=== PATIENT | female | born 1985 | race Caucasian/White ===

== ENCOUNTER → 2016-12-07 | Outpatient (CLI) | payer OTHER ==
[2016-12-07 19:35] LABS: BASO # 0.1 K/mm3 (0.0-0.2); BASO % 0.7 % (0.0-1.0); EOS % 0.1 % (0.0-3.0); LYMPH # 2.7 K/mm3 (1.5-4.5); LYMPH % 29.9 % (24.0-44.0); MEAN CORPUSCULAR HEMOGLOBIN 31.7 pg (27.0-33.0); MEAN CORPUSCULAR HGB CONC 33.3 g/dl (32.0-36.5); MEAN CORPUSCULAR VOLUME 95.1 fl (80.0-96.0); MONO # 0.7 K/mm3 (0.0-0.8); MONO % 7.3 % (0.0-5.0); NEUTROPHILS # 5.4 K/mm3 (1.8-7.7); NEUTROPHILS % 60.3 % (36.0-66.0); RED CELL DISTRIBUTION WIDTH 12.1 % (11.5-14.5); WHITE BLOOD COUNT 8.9 K/mm3 (4.0-10.0)
[2016-12-07 19:53] LABS: ALBUMIN 3.8 GM/DL (3.2-5.2); ALBUMIN/GLOBULIN RATIO 1.36 (1.00-1.93); ALKALINE PHOSPHATASE 76 U/L (45-117); ALT/SGPT 11 U/L (12-78); ANION GAP 6 MEQ/L (8-16); AST/SGOT 12 U/L (15-37); BILIRUBIN,TOTAL 0.2 MG/DL (0.2-1.0); BLOOD UREA NITROGEN 14 MG/DL (7-18); CALCIUM LEVEL 8.8 MG/DL (8.5-10.1); CARBON DIOXIDE LEVEL 30 MEQ/L (21-32); CHLORIDE LEVEL 106 MEQ/L (98-107); CHOLESTEROL LEVEL 132 MG/DL (<200); GLOMERULAR FILTRATION RATE > 60.0 (>60); GLUCOSE, FASTING 93 MG/DL (70-105); POTASSIUM SERUM 4.1 MEQ/L (3.5-5.1); SODIUM LEVEL 142 MEQ/L (136-145); TOTAL PROTEIN 6.6 GM/DL (6.4-8.2); TRIGLYCERIDES LEVEL 80 MG/DL (<150)
== END ==
LOC: M WUC 17:18
PROVIDERS: ATTEND Physician Assistant Medical
DX: I10 Essential (primary) hypertension (principal)

== ENCOUNTER 2017-06-29 16:17 | Emergency (ER) | payer OTHER ==
[~2017-06-29] VITALS: Ht 157.5 cm; Wt 61.4 kg
[2017-06-29] MEDS ORDERED: AMLO10TA2 PO (16:23)
[2017-06-29] MEDS ORDERED: CARV12.5 PO (16:23)
[2017-06-29] MEDS ORDERED: IBUP200T45 PO (16:23)
[2017-06-29] MEDS ORDERED: TYLE500T78 PO (16:23)
[2017-06-29 18:36] LABS: BASO # 0.1 10^3/uL (0.0-0.2); BASO % 0.5 % (0.0-1.0); EOS # 0.1 10^3/uL (0.0-0.50); EOS % 1.3 % (0.0-3.0); IMMATURE GRANULOCYTE % 0.3 % (0-0); LYMPH # 2.4 10^3/uL (1.5-4.5); MEAN CORPUSCULAR HEMOGLOBIN 30.8 pg (27.0-33.0); MEAN CORPUSCULAR HGB CONC 33.8 g/dl (32.0-36.5); MONO # 0.7 10^3/uL (0.0-0.8); MONO % 7.8 % (0.0-5.0); NEUTROPHILS % 64.1 % (36.0-66.0); PLATELET COUNT, AUTOMATED 329 10^3/uL (150-450); RED CELL DISTRIBUTION WIDTH 12.1 % (11.5-14.5); WHITE BLOOD COUNT 9.4 10^3/uL (4.0-10.0)
[2017-06-29 18:41] LABS: BLOOD URINE MANUAL RFX POSITIVE (NEGATIVE)
[2017-06-29 18:47] LABS: MICROSCOPIC INDICATED? RFX YES (NO)
[2017-06-29 18:49] LABS: BACTERIA, URINE MOD AMOUNT; HYALINE CAST, URINE NONE SEEN /lpf (0-1); MICROSCOPIC EXAM PERFORMED; RBC, URINE 15-20 /hpf (0-3); SQUAMOUS EPITHELIAL CELL URINE MOD AMOUNT /hpf (SMALL AMT)
--- NOTE | 2017-06-29 19:00 | REPUSA ---
Clinical history: Right upper quadrant pain. Findings: The pancreas is limited in visualization secondary to overlying bowel gas, but appears maral sly unremarkable. The liver demonstrates uniform echotexture and echogenicity, with no mass lesions. The gallbladder is unremarkable. The common bile duct measures 5 mm and is within normal limits. Ther e is no ascites. The right kidney measures 12.3 cm in length and is unremarkable. Impression: Unremarkable ultrasound examination of the right upper quadrant.
[2017-06-29 19:06] LABS: ALBUMIN 4.4 GM/DL (3.2-5.2); ALBUMIN/GLOBULIN RATIO 1.22 (1.00-1.93); ALKALINE PHOSPHATASE 73 U/L (45-117); ALT/SGPT 14 U/L (12-78); AMYLASE 62 U/L (25-115); ANION GAP 9 MEQ/L (8-16); AST/SGOT 14 U/L (7-37); BILIRUBIN,TOTAL 0.5 MG/DL (0.2-1.0); BLOOD UREA NITROGEN 12 MG/DL (7-18); CALCIUM LEVEL 9.2 MG/DL (8.5-10.1); CARBON DIOXIDE LEVEL 29 MEQ/L (21-32); CHLORIDE LEVEL 103 MEQ/L (98-107); CREATININE FOR GFR 0.65 MG/DL (0.55-1.02); GLOMERULAR FILTRATION RATE > 60.0 (>60); GLUCOSE, FASTING 100 MG/DL (70-105); POTASSIUM SERUM 3.8 MEQ/L (3.5-5.1); SODIUM LEVEL 141 MEQ/L (136-145)
[2017-06-29] MEDS ORDERED: OMEP40CA2 PO (19:25)
[2017-06-29] MEDS ORDERED: BACT800T5 PO (19:26)
[2017-06-29] MEDS ORDERED: OMEPRAZOLE 20 MG CAP PO ONE (19:30)
[2017-06-29] MEDS ORDERED: BACTRIM 160MG/800MG DS TAB PO ONE (19:30)
[2017-06-29 19:32] VITALS: BP 141/93
== END 2017-06-29 19:36 | disposition home or self-care (01) ==
LOC: M ED 16:17
DX: R10.13 Epigastric pain (principal); R60.9 Edema, unspecified; N39.0 Urinary tract infection, site not specified; I10 Essential (primary) hypertension; R00.0 Tachycardia, unspecified; G43.909 Migraine, unspecified, not intractable, without status migrainosus; N80.9 Endometriosis, unspecified; Z87.442 Personal history of urinary calculi; Z79.899 Other long term (current) drug therapy

== ENCOUNTER → 2017-07-12 | Outpatient (REF) | payer OTHER ==
[~2017-07-12] MED LIST: AMLO10TA2 PO; BACT800T5 PO; CARV12.5 PO; IBUP200T45 PO; OMEP40CA2 PO; TYLE500T78 PO
== END ==
LOC: M LAB REF 16:04
PROVIDERS: ATTEND Physician Assistant
DX: J02.9 Acute pharyngitis, unspecified (principal)

== ENCOUNTER → 2018-02-02 | Outpatient (CLI) | payer OTHER ==
[2018-02-02 16:43] LABS: BASO % 0.5 % (0.0-1.0); EOS # 0.1 10^3/uL (0.0-0.50); HEMATOCRIT 38.9 % (36.0-47.0); HEMOGLOBIN 13.2 g/dl (12.0-15.5); IMMATURE GRANULOCYTE % 0.2 % (0-3.0); LYMPH # 1.9 10^3/uL (1.5-4.5); MEAN CORPUSCULAR HEMOGLOBIN 30.8 pg (27.0-33.0); MEAN CORPUSCULAR HGB CONC 33.9 g/dl (32.0-36.5); MEAN CORPUSCULAR VOLUME 90.7 fl (80.0-96.0); MONO # 0.7 10^3/uL (0.0-0.8); MONO % 7.9 % (0.0-5.0); NEUTROPHILS % 68.4 % (36.0-66.0); PLATELET COUNT, AUTOMATED 310 10^3/uL (150-450); RED BLOOD COUNT 4.29 10^6/uL (4.00-5.40); RED CELL DISTRIBUTION WIDTH 12.4 % (11.5-14.5); WHITE BLOOD COUNT 8.8 10^3/uL (4.0-10.0)
[2018-02-02 17:00] LABS: TOTAL 25(OH) VITAMIN D 19.4 NG/ML (30.0-100.0)
[2018-02-02 17:07] LABS: ALBUMIN/GLOBULIN RATIO 1.14 (1.00-1.93); ALKALINE PHOSPHATASE 68 U/L (45-117); ALT/SGPT 13 U/L (12-78); ANION GAP 5 MEQ/L (8-16); AST/SGOT 11 U/L (7-37); BILIRUBIN,TOTAL 0.8 MG/DL (0.2-1.0); BLOOD UREA NITROGEN 15 MG/DL (7-18); C REACTIVE PROTEIN QUANTITATIV < 0.30 MG/DL (0.00-0.30); CALCIUM LEVEL 9.3 MG/DL (8.5-10.1); CARBON DIOXIDE LEVEL 30 MEQ/L (21-32); CHLORIDE LEVEL 108 MEQ/L (98-107); CHOLESTEROL LEVEL 139 MG/DL (<200); CHOLESTEROL RISK RATIO 1.654 (<5); CREATININE FOR GFR 0.65 MG/DL (0.55-1.30); GLOMERULAR FILTRATION RATE > 60.0 (>60); GLUCOSE, FASTING 90 MG/DL (70-100); HDL CHOLESTEROL 84 MG/DL (>40); NON-HDL-C 55 MG/DL; POTASSIUM SERUM 3.8 MEQ/L (3.5-5.1); RHEUMATOID FACTOR QUANT < 10.0 IU/ML (<15.0); SODIUM LEVEL 143 MEQ/L (136-145); TOTAL PROTEIN 7.5 GM/DL (6.4-8.2); TRIGLYCERIDES LEVEL 70 MG/DL (<150); URIC ACID 3.1 MG/DL (2.6-6.0)
[2018-02-02 18:12] LABS: ERYTHROCYTE SEDIMENTATION RATE 8 mm/hr (0-20)
[2018-02-05 00:14] LABS: ANTINUCLEAR ANTIBODIES DIRECT Negative (Negative); Lyme Disease IgG/IgM Antibodie <0.91 ISR (0.00-0.90); Lyme Disease IgM Ab Quantitati <0.80 index (0.00-0.79)
[2018-02-08 11:05] LABS: DRVV SCREEN 33.2 SEC
[2018-02-08 11:13] LABS: PTT LUPUS TYPE ANTICOAG SCREEN 0.8 (0-1.2)
== END ==
LOC: M WUC 14:38
DX: I10 Essential (primary) hypertension (principal)
CPT/HCPCS: 84550

== ENCOUNTER → 2018-04-01 | Outpatient (REF) | payer OTHER ==
[2018-04-05 14:12] LABS: HPV HYBRID CAPTURE II Negative (Negative)
== END ==
LOC: M LAB REF 17:38
DX: Z12.4 Encounter for screening for malignant neoplasm of cervix (principal)

== ENCOUNTER → 2018-12-06 | Outpatient (CLI) | payer OTHER ==
[~2018-12-06] MED LIST changes: -AMLO10TA2 PO; +AMLO10TA5 PO; +OXYC1TAB23 PO
[2018-12-06 16:41] LABS: BASO # 0.1 10^3/uL (0.0-0.2); BASO % 0.5 % (0.0-1.0); EOS # 0.1 10^3/uL (0.0-0.50); EOS % 0.9 % (0.0-3.0); HEMOGLOBIN 12.9 g/dl (12.0-15.5); LYMPH # 2.2 10^3/uL (1.5-4.5); LYMPH % 19.4 % (24.0-44.0); MEAN CORPUSCULAR HEMOGLOBIN 30.4 pg (27.0-33.0); MEAN CORPUSCULAR HGB CONC 32.3 g/dl (32.0-36.5); MEAN CORPUSCULAR VOLUME 94.1 fl (80.0-96.0); MONO # 0.7 10^3/uL (0.0-0.8); NEUTROPHILS # 8.3 10^3/uL (1.8-7.7); NEUTROPHILS % 72.9 % (36.0-66.0); PLATELET COUNT, AUTOMATED 320 10^3/uL (150-450); RED BLOOD COUNT 4.25 10^6/uL (4.00-5.40); WHITE BLOOD COUNT 11.4 10^3/uL (4.0-10.0)
== END ==
LOC: M WUC 14:03
PROVIDERS: ATTEND Physician Assistant
DX: N92.0 Excessive and frequent menstruation with regular cycle (principal)

== ENCOUNTER → 2019-03-08 | Outpatient (CLI) | payer OTHER ==
[~2019-03-08] MED LIST changes: +LARI1TAB7 PO; +LOSA25TA14 PO; +MOBI4TAB PO; +RIZA10TA4 PO; +TRAM37.53 PO; +TRAM50TA2 PO
--- NOTE | 2019-03-08 10:59 | REP ---
Hepatobiliary scan and gallbladder ejection fraction: History: Right upper quadrant pain Technique: 6.5 mCi of technetium-99m mebrofenin was injected and sequential anterior images are acquired. 65 minutes after the mebrofenin injection, the patient consumed 8 ounces Ensure and an additional 60 minutes of imaging was acquired. Regions of interest are plotted around the gallbladder. Findings: The initial hepatocellular parenchymal uptake phase is normal and homogeneous. Intra- and extra-hepatic bile ducts are labeled by the five minute image. The gallbladder is first labeled on the 10 -minute image. There is normal washout from the liver parenchyma into the gallbladder and small intestine on subsequent images. The gallbladder ejection fraction is 32 %. Values greater than 35 % are considered normal with this technique. Impression: Normal hepatobiliary scan and slightly decreased gallbladder ejection fraction. Electronically Signed by Rahat Barrow MD 03/08/2019 10:51 A
== END ==
LOC: M RAD 07:11
PROVIDERS: ATTEND Surgery
DX: R10.11 Right upper quadrant pain (principal)
CPT/HCPCS: 78227; A9537; J2805

== ENCOUNTER 2019-03-13 06:07 | Day surgery (SDC) | payer OTHER ==
[~2019-03-13] VITALS: Ht 157.5 cm; Wt 72.6 kg
[2019-03-13] VITALS (10 sets, daily range): BP systolic 156–178; BP diastolic 90–98
[~2019-03-13 06:07] MED LIST changes: +LR 1,000 ML IV ONE; -OMEP40CA2 PO; +OMEP40CA97 PO; -RIZA10TA4 PO; +RIZA10TA58 PO; +ceFAZolin SOD 2 GM in IV 1 EA IV ONE
[2019-03-13 06:38] LABS: URINE PREG TEST NEGATIVE (NEGATIVE)
[2019-03-13 06:40] LABS: HEMATOCRIT 38.5 % (36.0-47.0); HEMOGLOBIN 12.6 g/dl (12.0-15.5); MEAN CORPUSCULAR HEMOGLOBIN 30.1 pg (27.0-33.0); MEAN CORPUSCULAR HGB CONC 32.7 g/dl (32.0-36.5); MEAN CORPUSCULAR VOLUME 91.9 fl (80.0-96.0); PLATELET COUNT, AUTOMATED 334 10^3/uL (150-450); RED BLOOD COUNT 4.19 10^6/uL (4.00-5.40)
[2019-03-13] MEDS ORDERED: BUPIVACAINE/EPIN 0.25% 30 ML VIAL As Ordered ONE (06:56)
[2019-03-13] MEDS ORDERED: BUPIVACAINE HCL 0.25% 30 ML VIAL As Ordered ONE (06:56)
[2019-03-13] MEDS ORDERED: METHYLENE BLUE 0.5% (5MG/ML) 10 ML AMP (PROVAYBLUE)(Q9968 PER 1MG) As Ordered ONE (06:56)
[2019-03-13] MEDS ORDERED: ONDANSETRON 4MG/2ML VIAL (J2405) As Ordered ONE (08:04)
[2019-03-13] MEDS ORDERED: HYDROmorphone HCL 2 MG/ML 1ML VIAL (J1170) As Ordered ONE (08:04)
[2019-03-13] MEDS ORDERED: LIDOCAINE 2% INJ 100 MG/5 ML SDV (FOR ANES.) As Ordered ONE (08:04)
[2019-03-13] MEDS ORDERED: KETOROLAC 60 MG/2 ML VIAL (J1885) As Ordered ONE (08:04)
[2019-03-13] MEDS ORDERED: SUGAMMADEX SODIUM 500 MG/5 ML VIAL (BRIDION) As Ordered ONE (08:04)
[2019-03-13] MEDS ORDERED: propofoL 200 MG/20 ML VIAL As Ordered ONE ×2 (08:04→10:04)
[2019-03-13] MEDS ORDERED: MIDAZOLAM INJ 2 MG/2 ML VIAL (J2250) As Ordered ONE (08:04)
[2019-03-13] MEDS ORDERED: ACETAMINOPHEN 1000MG 100ML IV BTL (OFIRMEV) (J0131 PER 10MG) As Ordered ONE (08:04)
[2019-03-13] MEDS ORDERED: ROCURONIUM BROMIDE 50 MG/5 ML VIAL As Ordered ONE (08:04)
[2019-03-13] MEDS ORDERED: dexameTHASONE 4 MG/ML 1ML VIAL (J1100) As Ordered ONE (08:04)
[2019-03-13] MEDS ORDERED: fentaNYL 100 MCG/2 ML INJECTION (J3010) As Ordered ONE (08:04)
[2019-03-13] MEDS ORDERED: PHENYLephrine HCL 500 MCG/5 ML (100MCG/ML) SYRINGE (J2370) As Ordered ONE (08:28)
[2019-03-13] MEDS ORDERED: ePHEDrine SULFATE 25 MG/5 ML(5MG/ML) SYRINGE As Ordered ONE (08:28)
[2019-03-13] MEDS: fentaNYL 100 MCG/2 ML INJECTION (J3010) IV PRN ×8 (10:24→11:40)
[2019-03-13] MEDS ORDERED: METOCLOPRAMIDE INJ 10MG/2ML VIAL (J2765) IV PRN (10:30)
[2019-03-13] MEDS ORDERED: LR 1,000 ML IV SCH ×2 (10:30)
[2019-03-13] MEDS ORDERED: PROMETHAZINE INJ 25 MG/ML VIAL (J2550) IV PRN (10:30)
[2019-03-13] MEDS ORDERED: ONDANSETRON 4MG/2ML VIAL (J2405) IV PRN (10:30)
[2019-03-13] MEDS ORDERED: PERCOCET 5MG/325MG TAB PO PRN ×2 (10:30)
[2019-03-13] MEDS: MEPERIDINE INJ 25 MG/ML VIAL (J2175) IV PRN ×2 (10:45→11:10)
[2019-03-13] MEDS ORDERED: oxyCODONE 5MG TAB As Ordered ONE (11:18)
[2019-03-13] MEDS ORDERED: oxyCODONE 5MG TAB PO PRN (11:30)
[2019-03-13] MEDS ORDERED: OXYC1TAB23 PO (13:02)
[2019-03-13] MEDS: MORPHINE 4 MG/ML 1ML VIAL/SYRINGE (J2270) IV PRN ×2 (13:28→18:41)
[2019-03-13] MEDS: PERCOCET 5MG/325MG TAB PO PRN ×2 (15:01→19:42)
[2019-03-13] MEDS: KETOROLAC 30 MG/ML VIAL (J1885) IV SCH ×2 (15:47→21:23)
--- NOTE | 2019-03-13 18:35 | ECGEPIP ---
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
[2019-03-14] VITALS: BP 156/80
[2019-03-14] MEDS: PERCOCET 5MG/325MG TAB PO PRN ×2 (00:31→07:05)
[2019-03-14] MEDS: KETOROLAC 30 MG/ML VIAL (J1885) IV SCH ×2 (03:39→09:02)
[2019-03-14 04:00] VITALS: BP 154/92
[2019-03-14 06:16] LABS: HEMATOCRIT 36.2 % (36.0-47.0); HEMOGLOBIN 11.9 g/dl (12.0-15.5); MEAN CORPUSCULAR HEMOGLOBIN 30.5 pg (27.0-33.0); MEAN CORPUSCULAR HGB CONC 32.9 g/dl (32.0-36.5); MEAN CORPUSCULAR VOLUME 92.8 fl (80.0-96.0); PLATELET COUNT, AUTOMATED 311 10^3/uL (150-450); WHITE BLOOD COUNT 16.2 10^3/uL (4.0-10.0)
[2019-03-14 08:00] VITALS: BP 160/85
--- NOTE | 2019-03-14 14:36 | RO ---
DATE OF PROCEDURE: 03/13/2019 PREOPERATIVE DIAGNOSES: 1. Endometriosis. 2. Chronic pelvic pain. 3. Biliary dyskinesia. POSTOPERATIVE DIAGNOSES: 1. Endometriosis. 2. Chronic pelvic pain. 3. Biliary dyskinesia. PROCEDURES PERFORMED: 1. Robotic-assisted laparoscopic hysterectomy. 2. Bilateral salpingectomy. 3. Cystoscopy. 4. Robotic-assisted laparoscopic cholecystectomy. SURGEON: Jeanine Purcell MD ANESTHESIA: General endotracheal anesthesia. ESTIMATED BLOOD LOSS: 50 mL. INTRAVENOUS FLUIDS: 2100 mL of lactated Ringer's solution. URINE OUTPUT: 150 mL. SPECIMENS: Uterus, bilateral fallopian tubes, gallbladder. OPERATIVE FINDINGS: Patient with normal-appearing pelvic anatomy, including uterus, bilateral adnexa. PREOPERATIVE ANTIBIOTICS: 2 grams of Ancef. DESCRIPTION OF OPERATION: After informed consent was obtained and written consent was reviewed, the patient was brought to the operating room where she was placed under general endotracheal anesthesia. She was then placed in lithotomy position, was prepped and draped in a normal sterile fashion. A time out in the operating room was then performed identifying the patient, procedure to be performed, as well as drug allergies. A bivalve speculum was then placed revealing the cervix. The anterior and posterior aspect of cervix was stitched with 0 Vicryl. A medium VCare uterine manipulator was then advanced through cervical os, insufflated with air, the cervical cap was then placed over the cervix, as well as a vaginal sleeve into the vagina. Instruments were then removed. Cole catheter was placed and set to gravity. Gloves were changed. Attention was turned to the patient's abdomen where a pneumoperitoneum was obtained with CO2 gas. The supraumbilical area was then incised and an 8 mL trocar and sleeves advanced through this incision. Laparoscope was replaced revealing intra-abdominal placement. Three additional port sites were placed, one to the left side of umbilicus and one to the right. Each one of these areas were 8 mm in size and 8 mm trocars and sleeves were advanced through each one of these incisions under direct visualization. The da Sophie was then docked utilizing camera arm and three operative arms. For this part of the procedure, Dr. Fuentes performed robotic-assisted cholecystectomy, please see his operative notes. On completion of his operation, he placed the gallbladder in a 5 mm Endo catch bag. The da Sophie was then undocked and then redocked utilizing three operative arms. Attention was then turned to the pelvis where hysterectomy was performed using a vessel sealer. The mesosalpinx bilaterally were cauterized and ligated below fallopian tubes to the level of the uterus. The utero-ovarian ligaments bilaterally were cauterized and ligated with good hemostasis noted. The round ligaments were cauterized and ligated. The anterior lip of the broad ligaments were then cauterized and ligated along the anterior lip, creating a bladder flap. The remainder of the broad and cardinal ligaments were then cauterized and ligated with good hemostasis noted. The uterine vessels were then skeletonized bilaterally, cauterized and ligated with hemostasis noted. Next, anterior and posterior colpotomies were made using monopolar scissors and the uterus was removed vaginally. The gallbladder and the EndoCatch bag was also removed through the vaginal incision. Surgical sites were inspected and noted to be hemostatic. The vaginal incision was then closed using a V-Loc in a running nonlocking fashion. The surgical sites were then irrigated and suctioned. Marcelino was applied over the surgical field. The da Sophie was then undocked and cystoscopy was then performed. Cole catheter was removed in cystoscope was advanced transurethrally revealing normal bladder mucosa with no foreign bodies or objects. Bilateral ureteral jets were observed. Bladder was then drained. Gloves were changed and attention was turned to the patient's abdomen where four port sites were closed with 4-0 Monocryl and was dressed with Dermabond. The patient was then taken out of lithotomy position, was awakened from anesthesia and taken to recovery in stable condition. Counts were correct. MTDD
--- NOTE | 2019-03-16 12:07 | RO ---
DATE OF PROCEDURE: 03/13/2019 PREOPERATIVE DIAGNOSIS: Biliary Dyskinesia POSTOPERATIVE DIAGNOSIS: Same PROCEDURE: Robotic cholecystectomy. SURGEON: Dr. Polo Fuentes ASSIST: None. ANESTHESIA: General. ESTIMATED BLOOD LOSS: 2 mL. COMPLICATIONS: None. INDICATION FOR PROCEDURE: The patient is a 34-year-old female who presents with persistent right upper quadrant abdominal pain, had a normal ultrasound with a slightly abnormal HIDA with a lower ejection fraction. She is scheduled for hysterectomy today with Dr. Purcell, and I have consented her for a robotic cholecystectomy at the same time. Risks and benefits of procedure not limited to, but including bleeding, infection, hernia formation, damage to surrounding structures, need for further surgery, and the possibility that this may not fix her symptoms were discussed in detail with her. Informed consent was obtained and procedure was planned. PROCEDURE: Patient brought back to operating room 7 after sufficient sedation. She was placed up in stirrups for the hysterectomy portion of procedure. Next, the abdomen was sterilely prepped and draped with chlorhexidine. Next, time-out was done to confirm proper patient, proper procedure. Following that, while Dr. Purcell was doing the uterine manipulator, I started placing ports in the left upper quadrant. An 8-mm incision was made. Veress needle was inserted. The abdomen was then insufflated 15 mmHg. Veress needle was then removed and 8-mm robotic Optiview port was used to gain access to the abdomen. Once the abdomen was entered, another 8-mm port was placed supraumbilically in the midline, another 8-mm port in the right midabdomen, and then another 8-mm port in the left midabdomen. Once the ports were all placed, the head was elevated up in the air. The robot was then connected to the ports. The fundus of the gallbladder was elevated up into the right upper quadrant and held in place stationary. Next, the cystic duct and the cystic artery were carefully dissected free using combination of blunt and sharp dissection. Once they were clearly identified, they were both doubly clipped and cut. The gallbladder was then removed from the gallbladder fossa using cautery and placed inside of 5 mm Endo Catch bag. Once that was completed, the Endo Catch bag was placed into right pericolic gutter, and that ended my portion of procedure. Once Dr. Purcell finishes with the hysterectomy, he can remove my specimen along with his. JOÃOD
[2019-03-20] MEDS ORDERED: OXYC1TAB23 PO (09:42)
[2019-03-29] MEDS ORDERED: PERC5TAB12 PO (15:36)
[2019-04-07] MEDS ORDERED: PERC7.5T11 PO (06:11)
== END 2019-03-14 12:20 | disposition home or self-care (01) ==
LOC: M SDC 06:07 → M PED 12:20 → M SDC 03-14 12:20
PROVIDERS: ATTEND Obstetrics & Gynecology
DX: N80.0 Endometriosis of uterus (principal); R10.2 Pelvic and perineal pain; D25.0 Submucous leiomyoma of uterus; D25.1 Intramural leiomyoma of uterus; K82.8 Other specified diseases of gallbladder; I10 Essential (primary) hypertension; Z79.899 Other long term (current) drug therapy
CPT/HCPCS: 36415; 47562; 58571; 84703; 85027; 86850; 86900; 86901; 88304; 88307; 93005; 96374; 96375; 96376; J0131; J0690; J1100; J1170; J1885; J2175; J2250; J2270; J2370; J2405; J3010

== ENCOUNTER → 2019-03-30 | Outpatient (CLI) | payer OTHER ==
[~2019-03-30] MED LIST changes: -LR 1,000 ML IV ONE; +OMEP40CA2 PO; -OMEP40CA97 PO; +PERC5TAB12 PO; +PERC7.5T11 PO; +RIZA10TA4 PO; -RIZA10TA58 PO; -ceFAZolin SOD 2 GM in IV 1 EA IV ONE
[2019-03-30 13:50] LABS: HEMATOCRIT 34.3 % (36.0-47.0); HEMOGLOBIN 11.1 g/dl (12.0-15.5); MEAN CORPUSCULAR HEMOGLOBIN 29.7 pg (27.0-33.0); MEAN CORPUSCULAR HGB CONC 32.4 g/dl (32.0-36.5); MEAN CORPUSCULAR VOLUME 91.7 fl (80.0-96.0); PLATELET COUNT, AUTOMATED 482 10^3/uL (150-450); RED BLOOD COUNT 3.74 10^6/uL (4.00-5.40); WHITE BLOOD COUNT 8.2 10^3/uL (4.0-10.0)
== END ==
LOC: M WUC 11:43
PROVIDERS: ATTEND Obstetrics & Gynecology
DX: Z48.815 Encounter for surgical aftercare following surgery on the digestive system (principal)

== ENCOUNTER → 2019-04-18 | Outpatient (CLI) | payer OTHER ==
[2019-04-18 16:58] LABS: BASO # 0.1 10^3/uL (0.0-0.2); BASO % 0.9 % (0.0-1.0); EOS # 0.2 10^3/uL (0.0-0.5); EOS % 2.6 % (0.0-3.0); HEMATOCRIT 35.6 % (36.0-47.0); HEMOGLOBIN 11.1 g/dl (12.0-15.5); LYMPH # 2.3 10^3/uL (1.5-5.0); LYMPH % 34.4 % (24.0-44.0); MEAN CORPUSCULAR HEMOGLOBIN 29.1 pg (27.0-33.0); MEAN CORPUSCULAR HGB CONC 31.2 g/dl (32.0-36.5); MEAN CORPUSCULAR VOLUME 93.2 fl (80.0-96.0); MONO # 0.5 10^3/uL (0.0-0.8); MONO % 7.5 % (0.0-5.0); NEUTROPHILS # 3.6 10^3/uL (1.5-8.5); NEUTROPHILS % 54.3 % (36.0-66.0); PLATELET COUNT, AUTOMATED 350 10^3/uL (150-450); RED BLOOD COUNT 3.82 10^6/uL (4.00-5.40); WHITE BLOOD COUNT 6.7 10^3/uL (4.0-10.0)
[2019-04-18 17:12] LABS: HEMOGLOBIN A1c 4.6 %
[2019-04-18 17:37] LABS: MAGNESIUM LEVEL 1.8 MG/DL (1.8-2.4); THYROID STIMULATING HORMONE 1.38 uIU/ML (0.358-3.740)
== END ==
LOC: M WUC 11:37
PROVIDERS: ATTEND Family Medicine
DX: Z00.00 Encounter for general adult medical examination without abnormal findings (principal); I10 Essential (primary) hypertension

== ENCOUNTER → 2019-07-06 | Outpatient (CLI) | payer OTHER ==
[~2019-07-06] MED LIST changes: -OMEP40CA2 PO; +OMEP40CA97 PO; -RIZA10TA4 PO; +RIZA10TA58 PO
--- NOTE | 2019-07-12 04:23 | ECWPNPC ---
PATIENT NAME: MIL MARTÍNEZ : 1985 GENDER: FEMALE VISIT DATE: 07/06/2019 DISCHARGE DATE: 07/06/19 1601 VISIT LOCKED DATE TIME: PHYSICIAN: AIDE NIETO MD RESOURCE: AIDE NIETO MD REASON FOR APPOINTMENT 1. SHOULDER/NECK/MIGRAINE HISTORY OF PRESENT ILLNESS PAIN SCREENING: PATIENT HAS A COMPLAINT OF ACUTE OR CHRONIC PAIN :YES 34 YEAR OLD FEMALE PATIENT WITH A HISTORY OF CHRONIC MIGRAINES, NECK, AND SHOULDER PAIN. THE PATIENT DESCRIBES THE PAIN ACHING, BURNING, SORE, TENDERS, AND CONTINUOUS WITH A PAIN SCORE OF 4-7/10 DEPENDING ON PHYSICAL ACTIVITY. THE PATIENT STATES HER PAIN BEGINS IN MAINLY THE LEFT SIDE OF HER NECK AND RADIATES DOWN HER LEFT SHOULDER AND ALSO UP TOWARDS HER HEAD THAT CAUSES MIGRAINES FOR HER. THE PATIENT SAYS SHE HAS BEEN SUFFERING FROM HER PAIN FOR MORE THAN 10 YEARS. THE PATIENT SAYS HER PAIN IS AFFECTING HER ABILITY TO PERFORM HER DAILY ACTIVITIES SUCH LIFTING HEAVY OBJECTS, GROCERY SHOPPING, AND CLEANING HER HOUSE. PATIENT DENIES UNEXPLAINABLE WEIGHT LOSS, FEVER, CHILLS, NEW CHANGES ON HER URINARY OR BOWEL CONTROL. FALL RISK SCREENING: SCREENING :NO FALLS REPORTED IN THE LAST YEAR CURRENT MEDICATIONS TAKING ACETAMINOPHEN 500 MG CAPSULE 2 CAPSULES NEEDED ORALLY EVERY 6 HRS TAKING MAXALT 10 MG TABLET 1 TABLET ORALLY AT THE ONSET OF HEADACHE. MAY REPEAT IN 2 HOURS IF NEEDED. MAXIMUM 30 MG IN A 24 HOUR PERIOD. (6 HAS PER MONTH) TAKING CARVEDILOL 12.5 MG TABLET 1 TABLET ORALLY TWICE A DAY TAKING LISINOPRIL 30 MG TABLET 1 TABLET ORALLY ONCE A DAY TAKING VITAMIN D2 10 MCG (400 UNIT) TABLET 1.25MG ORALLY WEEKLY TAKING DICLOFENAC POTASSIUM 50 MG TABLET 1 TABLET ORALLY THREE TIMES DAILY NEEDED TAKING OMEPRAZOLE 40 MG CAPSULE DELAYED RELEASE 1 CAPSULE 30 MINUTES BEFORE MORNING MEAL ORALLY ONCE A DAY TAKING ARNICA 20 % TINCTURE DIRECTED EXTERNALLY NOT-TAKING MOBIC 7.5 MG TABLET 1 TABLET ORALLY ONCE A DAY NOT-TAKING FLEXERIL 10 MG 30 10 MG TABLETS ONE TABLET ORALLY EVERY 8 HOURS PRN PAIN NOT-TAKING MULTIVITAMINS CAPSULE ORALLY NOT-TAKING IBUPROFEN 200 MG TABLET 1 TABLET NEEDED ORALLY EVERY 6 HRS NOT-TAKING MAGNESIUM OXIDE 400 MG TABLET 1 TAB ORALLY DAILY MEDICATION LIST REVIEWED AND RECONCILED WITH THE PATIENT PAST MEDICAL HISTORY MIGRAINE HAS ENDOMETRIOSIS SLEEP APNEA CHILD, RESOLVED AFTER T&A MURMUR H/O KIDNEY STONES POLYCYSTIC OVARIES FX LEFT WRIST PALPITATIONS ALLERGIC RHINITIS ALLERGIES PERTUSSIS: HOSPITALIZED - ALLERGY CEFDINIR: HIVES - ALLERGY SURGICAL HISTORY T&A 1994 LAPAROSCOPY (ENDOMETRIOSIS) 2006 HYSTERECTOMY 03/13/19 CHOLECYSTECTOMY 03/13/19 FAMILY HISTORY FATHER: ALIVE, DIAGNOSED WITH HYPERTENSION MOTHER: ALIVE, HAS, HYPERTENSION SIBLINGS: ALIVE, NO KNOWN MEDICAL PROBLEMS 1 BROTHER(S) - HEALTHY. 2DAUGHTER(S) - HEALTHY. SOCIAL HISTORY GENERAL: TOBACCO USE ARE YOU A:NONSMOKER DIET: HEALTHY. LANGUAGE KHMER. DOMESTIC VIOLENCE NONE. BMI CARE GOAL FOLLOW-UP BELOW NORMAL BMI FOLLOW-UPDIETARY EDUCATION FOR WEIGHT GAIN RECREATIONAL DRUG USE DENIES. EXERCISE: PILATES; LOW-IMPACT AEROBICS. LEARNING BARRIERS / SPECIAL NEEDS BARRIERS TO LEARNING?NO HEARING IMPAIRED?NO VISION IMPAIRED?YES COGNITIVELY IMPAIRED?NO :CORRECTIVE LENSES GLASSES READINESS TO LEARN?YES LEARNING PREFERENCES?NO LEARNING CAPABILITIES PRESENT?YES EMOTIONAL BARRIERS?NO LUNG CANCER SCREENING SMOKING STATUS:NON SMOKER PAIN CLINIC PFS, CLERGY, PUBLIC HEALTH REFERRALS HAS THE PATIENT BEEN EDUCATED REGARDING HIS/HER PLAN OF CARE?YES HAS THE PATIENT BEEN EDUCATED REGARDING PAIN, THE RISK FOR PAIN, THE IMPORTANCE OF EFFECTIVE PAIN MANAGEMENT, AND THE PAIN ASSESSMENT PROCESS?YES LATEX QUESTIONNAIRE LATEX ALLERGY : HAVE YOU EVER DEVELOPED ANY TYPE OF REACTION AFTER HANDLING LATEX PRODUCTS SUCH RUBBER GLOVES, CONDOMS, DIAPHRAGMS, BALLOONS, SOCKS, OR UNDERWEAR?NO LATEX ALLERGY : HAVE YOU EVER DEVELOPED ANY TYPE OF REACTION DURING OR AFTER DENTAL APPOINTMENT, VAGINAL/RECTAL EXAMINATION, SURGICAL PROCEDURE, OR ANY OTHER EXPOSURE?NO LATEX RISK : HAVE YOU EVER HAD ANY DIFFICULTY BREATHING OR HIVES AFTER EATING OR HANDLING ANY FRUITS, OR VEGETABLES; SUCH KIWI, BANANAS, STONE FRUITS, OR CHESTNUTSNO LATEX RISK : DO YOU HAVE A PREVIOUS PERSONAL HISTORY OF MORE THAN NINE SURGERIES, SPINA BIFIDA, OR REPEATED CATHERIZATIONS? NO LATEX RISK : ARE YOU FREQUENTLY EXPOSED TO LATEX PRODUCTS IN YOUR OCCUPATION?NO DATE ASKED : 07/05/2019 CAFFEINE RARE. ADVANCE DIRECTIVE ADVANCE DIRECTIVE DISCUSSED WITH PATIENT:YES PT STATES THAT SHE DOES NOT HAVE HCP AT THIS TIME MAY CONSIDER FILLING ONE OUT IN FUTURE. DS ANABAPTISM NO SABIANISM BELIEFS THAT WOULD IMPACT HEALTH CARE. MARITAL STATUS: . OCCUPATION: HOMEMAKER. REVIEWED NEW PT PAPERWORK 07/05/19 S. HOSPITALIZATION/MAJOR DIAGNOSTIC PROCEDURE SURGERY RELATED REVIEW OF SYSTEMS REVIEWED BY: PROVIDER: AIDE NIETO MD . CONSTITUTIONAL: ANY CHANGE IN YOUR MEDICAL CONDITION? NO . CHILLS NO . FEVER NO . INFECTION: DO YOU HAVE NEW INFECTIONS? NO . DO YOU HAVE HISTORY OF MRSA? NO . MUSCULOSKELETAL: ANY NEW PATTERNS OF PAIN OR NUMBNESS? YES, MIGRAINES ARE WORSE . SYTEMIC LUPUS NO . GASTROENTEROLOGY: ANY NEW CHANGE IN BOWEL CONTROL? NO . BARRETTS ESOPHAGUS NO . CIRRHOSIS NO . HEPATITIS NO . LIVER FAILURE NO . ACID REFLUX NO . UNEXPLAINED WEIGHT LOSS NO . GENITOURINARY: ANY NEW CHANGE IN BLADDER CONTROL? NO . IS THERE A CHANCE YOU COULD BE ? NO . HEMATOLOGY/LYMPH: DO YOU TAKE ANY BLOOD THINNERS? (FOR EXAMPLE- COUMADIN, PLAVIX, AGGRENOX, PLATEL, PRADAXA, OR XARELTO) NO . WHEN WAS YOUR LAST DOSE? DATE: TIME: . LOW PLATELET COUNT NO . SICKLE CELL DISEASE NO . VON WILLIEBRANDS NO . FACTOR V LEIDEN NO . THALLASEMIA NO . ANEMIA NO . EASY BRUISING NO . NEUROLOGY: HAVE YOU FALLEN IN THE PAST 12 MONTHS? NO . ANY NEW EXTREMITY NUMBNESS OR WEAKNESS? NO . HEAD INJURY NO . DEMENTIA NO . CEREBRAL PALSY NO . MULTIPLE SCLEROSIS NO . DIZZINESS NO . HEADACHE NO . STROKES NO . VERTIGO NO . CARDIOLOGY: DO YOU HAVE A PACEMAKER OR DEFIBRILLATOR? NO . ANGINA NO . HEART ATTACK NO . HEART SURGERY NO . CONGESTIVE HEART FAILURE/FLUID OVERLOAD NO . CHEST PAIN NO . HIGH BLOOD PRESSURE ON MEDICATION(S) . IRREGULAR HEART BEAT NO . RESPIRATORY: HAVE YOU BEEN SICK IN THE PAST WEEK? NO . FEVER NO . FLU LIKE SYMPTOMS? NO . CPAP NO . BYPAP NO . ASTHMA NO . EMPHYSEMA NO . CHRONIC LUNG DISEASES NO . SHORTNESS OF BREATH ON EXERTION NO . COUGH NO . SNORING NO . INTEGUMENTARY: DO YOU HAVE ANY RASHES OR OPEN SORES? NO . ALLERGIC/IMMUNO: ARE YOU ALLERGIC TO IV DYE? NO . ANY NEW ALLERGIES? NO . PSYCHIATRIC: DO YOU HAVE THOUGHTS OF HURTING YOURSELF OR SOMEONE ELSE? NO . ARE YOU ABUSED, NEGLECTED, OR IN AN UNSAFE ENVIRONMENT? NO . ENDOCRINOLOGY: ARE YOU DIABETIC? NO . THYROID DISORDER NO . OTHER: DO YOU NEED ANY PRESCRIPTIONS? NO . IF YES, PLEASE LIST: ____ . ANY NEW PROBLEMS WITH YOUR MEDICATIONS? YES, SVETA VISION PROBLEMS AND EMOTIONAL . WHEN DID YOU LAST EAT? ____ . WHEN DID YOU LAST DRINK? ____ . WHAT DID YOU LAST DRINK? ____ . NAME OF PERSON DRIVING YOU HOME? ____ . DO YOU HAVE ANY OTHER QUESTIONS OR CONCERNS NO . VITAL SIGNS WT 162.2 LBS, HT 62 IN, BMI 29.66 INDEX, BP 156/87 MM HG, HR 84 /MIN, RR 18 /MIN, TEMP 98.4 F, OXYGEN SAT % 100%, NA INITIALS SC 14:22, REVIEWED BY: EM. EXAMINATION GENERAL EXAMINATION: PATIENT IS ALERT O X 3 AND COOPERATIVE. LUNGS CLEAR, TO AUSCULTATION. HEART: NO MURMURS OR GALLOPS; FACIAL CRANIAL NERVES ARE GROSSLY NORMAL. GOOD SYMMETRY OF FACIAL MUSCLE MOVEMENT. NORMAL VISUAL HERNANDEZ. PATIENT WALKS WITH NORMAL GAIT. ABDUCTION OF UPPER EXTREMITIES IS NORMAL. PRESENCE OF BANDS OF TISSUE AND TRIGGER POINTS WITH RESTRICTION OF MOVEMENT OF THE SUPRASPINATUS OF LEFT SHOULDER. PAIN INCREASES OVER THE CERVICAL FACET JOINTS WITH EXTENSION AND LATERAL ROTATION OF THE NECK, ESPECIALLY ON THE LEFT SIDE. ASSESSMENTS MYALGIA, OTHER SITE - M79.18 (PRIMARY) CERVICALGIA - M54.2 TREATMENT MYALGIA, OTHER SITE CLINICAL NOTES: WE DISCUSSED SEVERAL ISSUES WITH MS. MARTÍNEZ'S PAIN MANAGEMENT CASE. I WOULD LIKE TO ORDER FOR AN UPDATED NECK X-RAY TO BE DONE SINCE THE LAST IMAGING WAS DONE SEVERAL YEARS AGO. DUE TO THE TRIGGER POINTS, BANDS OF TISSUE, AND RESTRICTION OF MOVEMENT, I WOULD LIKE TO MOVE FORWARD WITH A TRIGGER POINT INJECTION AT THIS TIME. WE DISCUSSED THE BENEFITS, RISKS, AND ALTERNATIVES OF THE INJECTION AND THE PATIENT WOULD LIKE TO PROCEED. I AM LOOKING FOR LONG LASTING PAIN RELIEF FROM THIS INJECTION FOR THE PATIENT. THE PATIENT WILL FOLLOW UP IN SEVERAL WEEKS AFTER HER INJECTION TO SEE HOW IT IS HELPING WITH HER PAIN AND ALSO TO GO OVER THE NECK X-RAY RESULTS. INSTRUCTIONS WERE GIVEN, QUESTIONS WERE ANSWERED, PATIENT REPORTS UNDERSTANDING AND AGREES WITH THE PLAN. I, RON ARAIZA, DOCUMENTED THE ABOVE INFORMATION ACTING A SCRIBE FOR DR. NIETO. I HAVE REVIEWED THE ABOVE DOCUMENT, WRITTEN BY RON FLOREZ AND I VERIFY THAT IT IS ACCURATE. DEAR FAITH TAN MD: THANK YOU FOR YOUR KIND REFERRAL OF MIL MARTÍNEZ. IF YOU WANT TO DISCUSS HER CASE WITH ME PLEASE CALL ME AT THE PAIN CENTER AT [phone]. SINCERELY, AIDE NIETO MD PAIN MEDICINE . CERVICALGIA X RAY : SPINES, CERVICAL 2 [id number] PREVENTIVE MEDICINE PAIN CLINIC TEACHING: PROCEDURE TEACHING INFORMATION ON TRIGGER POINT INJECTIONS GIVEN TO AND REVIEWED WITH PT. ALONG WITH PRINTED PRE-PROCEDURE INSTRUCTIONS AND PT. VERBALIZED UNDERSTANDING. AD. PROCEDURE CODES FA211 ESTABILISHED PATIENT [facility] FACILITY CHARGE G8427 CURRENT MEDS W/DOSAGES DOCUMENTED G8730 PAIN ASSESS POS TOOL F/U PLAN DOC DISPOSITION & COMMUNICATION FOLLOW UP 3 WEEKS ELECTRONICALLY SIGNED BY AIDE NIETO MD, MD ON 07/11/2019 AT 03:39 PM EST DISCLAIMER : THIS IS A VISIT SUMMARY EXTRACTED FROM THE [facility] CHART. IT IS NOT A COPY OF THE [facility] PROGRESS NOTE. JOYCELYN
== END ==
LOC: M PAIN 14:00
PROVIDERS: ATTEND Anesthesiology
DX: M79.18 Myalgia, other site (principal); M54.2 Cervicalgia; G43.909 Migraine, unspecified, not intractable, without status migrainosus; G47.30 Sleep apnea, unspecified; Z88.1 Allergy status to other antibiotic agents; Z88.7 Allergy status to serum and vaccine; Z79.899 Other long term (current) drug therapy

== ENCOUNTER → 2019-07-12 | Outpatient (CLI) | payer OTHER ==
--- NOTE | 2019-07-12 16:38 | REP ---
Two-view cervical spine: 07/12/2019. Indication: Neck pain. Comparison: 12/13/2014. Findings: There is straightening of the cervical lordosis. There is no acute fracture, subluxation or dislocation. No lytic or blastic lesions of the cervical spine are detected. The prevertebral and remaining visualized soft tissues are unremarkable. Circular opacity on the AP view likely represents a ponytail tai. Impression: No acute osseous cervical spine injury. Electronically Signed by Baudilio Garcias DO 07/12/2019 04:30 P
== END ==
LOC: M LAB 15:49
PROVIDERS: ATTEND Anesthesiology
DX: M54.2 Cervicalgia (principal)

== ENCOUNTER → 2019-07-14 | Outpatient (CLI) | payer OTHER ==
[~2019-07-14] MED LIST changes: +BUPIVACAINE HCL 0.25% 10 ML VIAL As Ordered ONE; +BUPIVACAINE HCL 0.25% 30 ML VIAL As Ordered ONE; +TRIAMCINOLONE ACETONIDE SUSP 40 MG/ML VIAL (J3301) As Ordered ONE; +diazePAM 5 MG TAB As Ordered ONE; +oxyCODONE 5MG TAB As Ordered ONE
--- NOTE | 2019-07-28 01:18 | ECWPNPC ---
PATIENT NAME: MIL MARTÍNEZ : 1985 GENDER: FEMALE VISIT DATE: 07/14/2019 DISCHARGE DATE: 07/14/19 1600 VISIT LOCKED DATE TIME: PHYSICIAN: AIDE NIETO MD RESOURCE: AIDE NIETO MD REASON FOR APPOINTMENT 1. TPI BILAT SHOULDER HISTORY OF PRESENT ILLNESS HISTORY OF PRESENT ILLNESS: PAIN THE PATIENT DESCRIBES THE PAIN... FALL RISK SCREENING: SCREENING :NO FALLS REPORTED IN THE LAST YEAR CURRENT MEDICATIONS TAKING ACETAMINOPHEN 500 MG CAPSULE 2 CAPSULES NEEDED ORALLY EVERY 6 HRS, NOTES: 07/14/19929 TAKING MAXALT 10 MG TABLET 1 TABLET ORALLY AT THE ONSET OF HEADACHE. MAY REPEAT IN 2 HOURS IF NEEDED. MAXIMUM 30 MG IN A 24 HOUR PERIOD. (6 HAS PER MONTH), NOTES: 07/27 TAB 07/13/192329 TAKING CARVEDILOL 12.5 MG TABLET 1 TABLET ORALLY TWICE A DAY, NOTES: 07/14/19929 TAKING LISINOPRIL 30 MG TABLET 1 TABLET ORALLY ONCE A DAY, NOTES: 07/14/19929 TAKING VITAMIN D2 10 MCG (400 UNIT) TABLET 1.25MG ORALLY WEEKLY, NOTES: ONCE A WEEK TAKING DICLOFENAC POTASSIUM 50 MG TABLET 1 TABLET ORALLY THREE TIMES DAILY NEEDED, NOTES: COUPLE OF DAYS TAKING OMEPRAZOLE 40 MG CAPSULE DELAYED RELEASE 1 CAPSULE 30 MINUTES BEFORE MORNING MEAL ORALLY ONCE A DAY, NOTES: 07/07/19 TAKING ARNICA 20 % TINCTURE DIRECTED EXTERNALLY , NOTES: 07/13/19 AM NOT-TAKING MOBIC 7.5 MG TABLET 1 TABLET ORALLY ONCE A DAY NOT-TAKING FLEXERIL 10 MG 30 10 MG TABLETS ONE TABLET ORALLY EVERY 8 HOURS PRN PAIN NOT-TAKING MULTIVITAMINS CAPSULE ORALLY NOT-TAKING IBUPROFEN 200 MG TABLET 1 TABLET NEEDED ORALLY EVERY 6 HRS NOT-TAKING MAGNESIUM OXIDE 400 MG TABLET 1 TAB ORALLY DAILY MEDICATION LIST REVIEWED AND RECONCILED WITH THE PATIENT PAST MEDICAL HISTORY MIGRAINE HAS ENDOMETRIOSIS SLEEP APNEA CHILD, RESOLVED AFTER T&A MURMUR H/O KIDNEY STONES POLYCYSTIC OVARIES FX LEFT WRIST PALPITATIONS ALLERGIC RHINITIS ALLERGIES PERTUSSIS: HOSPITALIZED - ALLERGY CEFDINIR: HIVES - ALLERGY SURGICAL HISTORY T&A 1994 LAPAROSCOPY (ENDOMETRIOSIS) 2006 HYSTERECTOMY 03/13/19 CHOLECYSTECTOMY 03/13/19 FAMILY HISTORY FATHER: ALIVE, DIAGNOSED WITH HYPERTENSION MOTHER: ALIVE, HAS, HYPERTENSION SIBLINGS: ALIVE, NO KNOWN MEDICAL PROBLEMS 1 BROTHER(S) - HEALTHY. 2DAUGHTER(S) - HEALTHY. SOCIAL HISTORY GENERAL: TOBACCO USE ARE YOU A:NONSMOKER DIET: HEALTHY. LANGUAGE ROMANIAN. DOMESTIC VIOLENCE NONE. BMI CARE GOAL FOLLOW-UP BELOW NORMAL BMI FOLLOW-UPDIETARY EDUCATION FOR WEIGHT GAIN RECREATIONAL DRUG USE DENIES. EXERCISE: PILATES; LOW-IMPACT AEROBICS. LEARNING BARRIERS / SPECIAL NEEDS BARRIERS TO LEARNING?NO HEARING IMPAIRED?NO VISION IMPAIRED?YES COGNITIVELY IMPAIRED?NO :CORRECTIVE LENSES GLASSES READINESS TO LEARN?YES LEARNING PREFERENCES?NO LEARNING CAPABILITIES PRESENT?YES EMOTIONAL BARRIERS?NO LUNG CANCER SCREENING SMOKING STATUS:NON SMOKER PAIN CLINIC PFS, CLERGY, PUBLIC HEALTH REFERRALS HAS THE PATIENT BEEN EDUCATED REGARDING HIS/HER PLAN OF CARE?YES HAS THE PATIENT BEEN EDUCATED REGARDING PAIN, THE RISK FOR PAIN, THE IMPORTANCE OF EFFECTIVE PAIN MANAGEMENT, AND THE PAIN ASSESSMENT PROCESS?YES LATEX QUESTIONNAIRE LATEX ALLERGY : HAVE YOU EVER DEVELOPED ANY TYPE OF REACTION AFTER HANDLING LATEX PRODUCTS SUCH RUBBER GLOVES, CONDOMS, DIAPHRAGMS, BALLOONS, SOCKS, OR UNDERWEAR?NO LATEX ALLERGY : HAVE YOU EVER DEVELOPED ANY TYPE OF REACTION DURING OR AFTER DENTAL APPOINTMENT, VAGINAL/RECTAL EXAMINATION, SURGICAL PROCEDURE, OR ANY OTHER EXPOSURE?NO DATE ASKED : 07/05/2019 LATEX RISK : HAVE YOU EVER HAD ANY DIFFICULTY BREATHING OR HIVES AFTER EATING OR HANDLING ANY FRUITS, OR VEGETABLES; SUCH KIWI, BANANAS, STONE FRUITS, OR CHESTNUTSNO LATEX RISK : DO YOU HAVE A PREVIOUS PERSONAL HISTORY OF MORE THAN NINE SURGERIES, SPINA BIFIDA, OR REPEATED CATHERIZATIONS? NO LATEX RISK : ARE YOU FREQUENTLY EXPOSED TO LATEX PRODUCTS IN YOUR OCCUPATION?NO CAFFEINE RARE. ADVANCE DIRECTIVE ADVANCE DIRECTIVE DISCUSSED WITH PATIENT:YES PT STATES THAT SHE DOES NOT HAVE HCP AT THIS TIME MAY CONSIDER FILLING ONE OUT IN FUTURE. DS MORMONISM NO JAINISM BELIEFS THAT WOULD IMPACT HEALTH CARE. MARITAL STATUS: . OCCUPATION: HOMEMAKER. REVIEWED NEW PT PAPERWORK 07/05/19 SREVIEWED WITH PATIENT 07/14/19 1501 NLJ. HOSPITALIZATION/MAJOR DIAGNOSTIC PROCEDURE SURGERY RELATED REVIEW OF SYSTEMS REVIEWED BY: PROVIDER: . CONSTITUTIONAL: ANY CHANGE IN YOUR MEDICAL CONDITION? NO . CHILLS NO . FEVER NO . INFECTION: DO YOU HAVE NEW INFECTIONS? NO . DO YOU HAVE HISTORY OF MRSA? NO . MUSCULOSKELETAL: ANY NEW PATTERNS OF PAIN OR NUMBNESS? NO . GASTROENTEROLOGY: ANY NEW CHANGE IN BOWEL CONTROL? NO . GENITOURINARY: ANY NEW CHANGE IN BLADDER CONTROL? NO . IS THERE A CHANCE YOU COULD BE ? NO . HEMATOLOGY/LYMPH: DO YOU TAKE ANY BLOOD THINNERS? (FOR EXAMPLE- COUMADIN, PLAVIX, AGGRENOX, PLATEL, PRADAXA, OR XARELTO) NO . WHEN WAS YOUR LAST DOSE? DATE: TIME: . NEUROLOGY: HAVE YOU FALLEN IN THE PAST 12 MONTHS? NO . ANY NEW EXTREMITY NUMBNESS OR WEAKNESS? NO . CARDIOLOGY: DO YOU HAVE A PACEMAKER OR DEFIBRILLATOR? NO . RESPIRATORY: HAVE YOU BEEN SICK IN THE PAST WEEK? NO . FEVER NO . FLU LIKE SYMPTOMS? NO . COUGH NO . INTEGUMENTARY: DO YOU HAVE ANY RASHES OR OPEN SORES? NO . ALLERGIC/IMMUNO: ARE YOU ALLERGIC TO IV DYE? NO . ANY NEW ALLERGIES? NO . PSYCHIATRIC: DO YOU HAVE THOUGHTS OF HURTING YOURSELF OR SOMEONE ELSE? NO . ARE YOU ABUSED, NEGLECTED, OR IN AN UNSAFE ENVIRONMENT? NO . ENDOCRINOLOGY: ARE YOU DIABETIC? NO . OTHER: DO YOU NEED ANY PRESCRIPTIONS? NO . IF YES, PLEASE LIST: ____ . ANY NEW PROBLEMS WITH YOUR MEDICATIONS? NO . WHEN DID YOU LAST EAT? 07/13/19 2330 . WHEN DID YOU LAST DRINK? 07/14/19 1300 . WHAT DID YOU LAST DRINK? WATER . NAME OF PERSON DRIVING YOU HOME? JAS MARTÍNEZ- . DO YOU HAVE ANY OTHER QUESTIONS OR CONCERNS NO . VITAL SIGNS WT 163.4 LBS, HT 62 IN, BMI 29.88 INDEX, BP 161/105 MM HG, HR 81 /MIN, RR 18 /MIN, TEMP 98.4 F, OXYGEN SAT % 99%, SAFE IN ENV? (Y/N) YES, NA INITIALS AW 1500, REVIEWED BY: NLJLET NURSE KNOW ABOUT ABUNDIO NIETO AWARE OF PT BP. 07/14/19 1504 NLJ. ASSESSMENTS MYALGIA, OTHER SITE - M79.18 (PRIMARY) PROCEDURES PN TRIGGER POINT INJECTION WITH STEROIDS PRE PROCEDURE DIAGNOSIS 1. MYALGIA 2. PAIN AT BILATERAL SHOULDER AREA. POST PROCEDURE DIAGNOSIS 1. MYALGIA 2. PAIN AT BILATERAL SHOULDER AREA. PROCEDURE TRIGGER POINT INJECTION AT RIGHT AND LEFT SHOULDER AREA. SURGEON DR. AIDE NIETO WIRE ANNEALER NONE ANESTHESIA LOCAL PRE PROCEDURE NOTE THE PATIENT HAS A HISTORY OF CHRONIC PAIN AT THE RIGHT AND LEFT SHOULDER AREA. I EVALUATED THE PATIENT AND REVIEWED THE CHART. THERE IS EVIDENCE OF BANDS OF TISSUE WITH RESTRICTION OF MOVEMENT AND PRESENCE OF TRIGGER POINT AT THE AFFECTED AREA. I WENT OVER THE RISKS, ALTERNATIVES, AND BENEFITS ASSOCIATED WITH THIS PROCEDURE. THE PATIENT WOULD LIKE TO PROCEED AND GIVES CONSENT TO PERFORM THE PROCEDURE. THE PATIENT DENIES UNEXPLAINABLE WEIGHT LOSS, FEVER, CHILLS, OR NEW CHANGES IN URINARY OR BOWEL CONTROL DESCRIPTION OF PROCEDURE THE PATIENT WAS BROUGHT TO THE PROCEDURE ROOM AND PLACED IN THE SITTING POSITION. THE AREA WAS CLEANED WITH ALCOHOL. THE PROCEDURE WAS DONE USING ASEPTIC STERILE TECHNIQUE. I CHECKED LATERALITY AND THE LEVEL WHERE THE PROCEDURE WAS GOING TO BE PERFORMED WITH THE PATIENT AND THE SUPPORTING STAFF AT THE MOMENT OF THE TIME OUT IN THE PROCEDURE ROOM. USING A 25-GAUGE NEEDLE, TRIGGER POINTS WERE INJECTED AT THE RIGHT AND LEFT SHOULDER AREA WITH A TOTAL OF 40 ML OF BUPIVACAINE 0.25% AND KENALOG 40 MG. THERE WAS NO EVIDENCE OF BLOOD, PARESTHESIA OR CEREBROSPINAL FLUID DURING THE PROCEDURE. THE PATIENT WAS SENT TO THE RECOVERY ROOM. THE PATIENT WAS MOVING THE EXTREMITIES AND DOING WELL. THERE WAS NO COMPLICATION DURING THE PROCEDURE POST PROCEDURE NOTE I AM LOOKING FOR LONG LASTING PAIN RELIEF WITH THIS INTERVENTION. THE PATIENT WILL BE SEEN IN A FOLLOW UP IN THE NEXT FEW WEEKS. INSTRUCTIONS WERE GIVEN, QUESTIONS WERE ANSWERED, AND THE PATIENT EXPRESSED UNDERSTANDING AND AGREES WITH THE PLAN. I, RON ARAIZA, DOCUMENTED THE ABOVE INFORMATION ACTING A SCRIBE FOR DR. NIETO. I HAVE REVIEWED THE ABOVE DOCUMENT, WRITTEN BY RON FLOREZ AND I VERIFY THAT IT IS ACCURATE. PROCEDURE CODES 37227 INJ TRIGGER POINT 07/27 [facility] [place] FOLLOW UP 3 WEEKS ELECTRONICALLY SIGNED BY AIDE NIETO MD, MD ON 07/27/2019 AT 02:04 PM EST DISCLAIMER : THIS IS A VISIT SUMMARY EXTRACTED FROM THE [employer] CHART. IT IS NOT A COPY OF THE [employer] PROGRESS NOTE. JOYCELYN
== END ==
LOC: M PAIN 15:30
PROVIDERS: ATTEND Anesthesiology
DX: M79.18 Myalgia, other site (principal)
CPT/HCPCS: 20552; J3301

== ENCOUNTER → 2019-08-04 | Outpatient (CLI) | payer OTHER ==
[~2019-08-04] MED LIST changes: -BUPIVACAINE HCL 0.25% 10 ML VIAL As Ordered ONE; -BUPIVACAINE HCL 0.25% 30 ML VIAL As Ordered ONE; -TRIAMCINOLONE ACETONIDE SUSP 40 MG/ML VIAL (J3301) As Ordered ONE; -diazePAM 5 MG TAB As Ordered ONE; -oxyCODONE 5MG TAB As Ordered ONE
--- NOTE | 2019-08-23 01:45 | ECWPNPC ---
PATIENT NAME: MIL MARTÍNEZ : 1985 GENDER: FEMALE VISIT DATE: 08/04/2019 DISCHARGE DATE: 08/04/19 1207 VISIT LOCKED DATE TIME: PHYSICIAN: BRAULIO SPANGLER RESOURCE: BRAULIO SPANGLER REASON FOR APPOINTMENT 1. POST TPI, REVIEW CERVICAL XR HISTORY OF PRESENT ILLNESS HISTORY OF PRESENT ILLNESS: HERE FOR POST PROCEDURE FOLLOW-UP. HAD TRIGGER POINT INJECTIONS, BILATERAL SHOULDERS ON 07/14/2019. REPORTING MINIMAL IMPROVEMENT FOR A FEW DAYS POST PROCEDURE AND THEN PAIN BEGAN TO WORSEN. RATING PAIN VAS 4-7/10 . STATES IT'S CONTINUOUS, ACHING, BURNING AND STABBING. REPORTING NIGHTTIME AWAKENINGS DUE TO PAIN. PAIN THE PATIENT DESCRIBES THE PAIN... FALL RISK SCREENING: SCREENING :NO FALLS REPORTED IN THE LAST YEAR CURRENT MEDICATIONS TAKING ACETAMINOPHEN 500 MG CAPSULE 2 CAPSULES NEEDED ORALLY EVERY 6 HRS TAKING MAXALT 10 MG TABLET 1 TABLET ORALLY AT THE ONSET OF HEADACHE. MAY REPEAT IN 2 HOURS IF NEEDED. MAXIMUM 30 MG IN A 24 HOUR PERIOD. (6 HAS PER MONTH) TAKING CARVEDILOL 12.5 MG TABLET 1 TABLET ORALLY TWICE A DAY TAKING LISINOPRIL 30 MG TABLET 1 TABLET ORALLY ONCE A DAY TAKING VITAMIN D2 10 MCG (400 UNIT) TABLET 1.25MG ORALLY WEEKLY TAKING DICLOFENAC POTASSIUM 50 MG TABLET 1 TABLET ORALLY THREE TIMES DAILY NEEDED, NOTES: NOT USING CURRENTLY TAKING ARNICA 20 % TINCTURE DIRECTED EXTERNALLY TAKING CELEXA 10 MG TABLET 1 TABLET ORALLY ONCE A DAY NOT-TAKING OMEPRAZOLE 40 MG CAPSULE DELAYED RELEASE 1 CAPSULE 30 MINUTES BEFORE MORNING MEAL ORALLY ONCE A DAY NOT-TAKING MOBIC 7.5 MG TABLET 1 TABLET ORALLY ONCE A DAY NOT-TAKING FLEXERIL 10 MG 30 10 MG TABLETS ONE TABLET ORALLY EVERY 8 HOURS PRN PAIN NOT-TAKING MULTIVITAMINS CAPSULE ORALLY NOT-TAKING IBUPROFEN 200 MG TABLET 1 TABLET NEEDED ORALLY EVERY 6 HRS NOT-TAKING MAGNESIUM OXIDE 400 MG TABLET 1 TAB ORALLY DAILY MEDICATION LIST REVIEWED AND RECONCILED WITH THE PATIENT PAST MEDICAL HISTORY MIGRAINE HAS ENDOMETRIOSIS SLEEP APNEA CHILD, RESOLVED AFTER T&A MURMUR H/O KIDNEY STONES POLYCYSTIC OVARIES FX LEFT WRIST PALPITATIONS ALLERGIC RHINITIS ALLERGIES PERTUSSIS: HOSPITALIZED - ALLERGY CEFDINIR: HIVES - ALLERGY SURGICAL HISTORY T&A 1994 LAPAROSCOPY (ENDOMETRIOSIS) 2006 HYSTERECTOMY 03/13/19 CHOLECYSTECTOMY 03/13/19 FAMILY HISTORY FATHER: ALIVE, DIAGNOSED WITH HYPERTENSION MOTHER: ALIVE, HAS, HYPERTENSION SIBLINGS: ALIVE, NO KNOWN MEDICAL PROBLEMS 1 BROTHER(S) - HEALTHY. 2DAUGHTER(S) - HEALTHY. SOCIAL HISTORY GENERAL: TOBACCO USE ARE YOU A:NONSMOKER DIET: HEALTHY. LANGUAGE PALAUAN. DOMESTIC VIOLENCE NONE. BMI CARE GOAL FOLLOW-UP BELOW NORMAL BMI FOLLOW-UPDIETARY EDUCATION FOR WEIGHT GAIN RECREATIONAL DRUG USE DENIES. EXERCISE: PILATES; LOW-IMPACT AEROBICS. LEARNING BARRIERS / SPECIAL NEEDS BARRIERS TO LEARNING?NO HEARING IMPAIRED?NO VISION IMPAIRED?YES COGNITIVELY IMPAIRED?NO :CORRECTIVE LENSES GLASSES READINESS TO LEARN?YES LEARNING PREFERENCES?NO LEARNING CAPABILITIES PRESENT?YES EMOTIONAL BARRIERS?NO LUNG CANCER SCREENING SMOKING STATUS:NON SMOKER PAIN CLINIC PFS, CLERGY, PUBLIC HEALTH REFERRALS HAS THE PATIENT BEEN EDUCATED REGARDING HIS/HER PLAN OF CARE?YES HAS THE PATIENT BEEN EDUCATED REGARDING PAIN, THE RISK FOR PAIN, THE IMPORTANCE OF EFFECTIVE PAIN MANAGEMENT, AND THE PAIN ASSESSMENT PROCESS?YES LATEX QUESTIONNAIRE LATEX ALLERGY : HAVE YOU EVER DEVELOPED ANY TYPE OF REACTION AFTER HANDLING LATEX PRODUCTS SUCH RUBBER GLOVES, CONDOMS, DIAPHRAGMS, BALLOONS, SOCKS, OR UNDERWEAR?NO LATEX ALLERGY : HAVE YOU EVER DEVELOPED ANY TYPE OF REACTION DURING OR AFTER DENTAL APPOINTMENT, VAGINAL/RECTAL EXAMINATION, SURGICAL PROCEDURE, OR ANY OTHER EXPOSURE?NO LATEX RISK : HAVE YOU EVER HAD ANY DIFFICULTY BREATHING OR HIVES AFTER EATING OR HANDLING ANY FRUITS, OR VEGETABLES; SUCH KIWI, BANANAS, STONE FRUITS, OR CHESTNUTSNO LATEX RISK : DO YOU HAVE A PREVIOUS PERSONAL HISTORY OF MORE THAN NINE SURGERIES, SPINA BIFIDA, OR REPEATED CATHERIZATIONS? NO LATEX RISK : ARE YOU FREQUENTLY EXPOSED TO LATEX PRODUCTS IN YOUR OCCUPATION?NO DATE ASKED : 07/05/2019 CAFFEINE RARE. ADVANCE DIRECTIVE ADVANCE DIRECTIVE DISCUSSED WITH PATIENT:YES 08/04/2019 PT STATES THAT SHE DOES NOT HAVE HCP AT THIS TIME MAY CONSIDER FILLING ONE OUT IN FUTURE SHE HAS THE INFORMATION AT HOME ALREADY. JS LATTER-DAY NO RESTORATION BELIEFS THAT WOULD IMPACT HEALTH CARE. MARITAL STATUS: . OCCUPATION: HOMEMAKER. REVIEWED NEW PT PAPERWORK 07/05/19 SREVIEWED WITH PATIENT 07/14/19 1501 NLJREVIEWED WITH PATIENT 08/04/2019 1129 JS. HOSPITALIZATION/MAJOR DIAGNOSTIC PROCEDURE SURGERY RELATED REVIEW OF SYSTEMS REVIEWED BY: PROVIDER: BRAULIO ARGUELLO . CONSTITUTIONAL: ANY CHANGE IN YOUR MEDICAL CONDITION? NO . CHILLS NO . FEVER NO . INFECTION: DO YOU HAVE NEW INFECTIONS? NO . DO YOU HAVE HISTORY OF MRSA? NO . MUSCULOSKELETAL: ANY NEW PATTERNS OF PAIN OR NUMBNESS? YES, STATES SEVERE SCIATIC PAIN/NUMBNESS TO RIGHT LOW BACK AND RIGHT LEG THAT STARTED JUST THIS WEEK . GASTROENTEROLOGY: ANY NEW CHANGE IN BOWEL CONTROL? NO . GENITOURINARY: ANY NEW CHANGE IN BLADDER CONTROL? NO . IS THERE A CHANCE YOU COULD BE ? NO . HEMATOLOGY/LYMPH: DO YOU TAKE ANY BLOOD THINNERS? (FOR EXAMPLE- COUMADIN, PLAVIX, AGGRENOX, PLATEL, PRADAXA, OR XARELTO) NO . WHEN WAS YOUR LAST DOSE? DATE: TIME: . NEUROLOGY: HAVE YOU FALLEN IN THE PAST 12 MONTHS? NO . ANY NEW EXTREMITY NUMBNESS OR WEAKNESS? NO . CARDIOLOGY: DO YOU HAVE A PACEMAKER OR DEFIBRILLATOR? NO . RESPIRATORY: HAVE YOU BEEN SICK IN THE PAST WEEK? YES, STATES COLD - FEELING BETTER NOW . FEVER NO . FLU LIKE SYMPTOMS? NO . COUGH NO . INTEGUMENTARY: DO YOU HAVE ANY RASHES OR OPEN SORES? NO . ALLERGIC/IMMUNO: ARE YOU ALLERGIC TO IV DYE? NO . ANY NEW ALLERGIES? NO . PSYCHIATRIC: DO YOU HAVE THOUGHTS OF HURTING YOURSELF OR SOMEONE ELSE? NO . ARE YOU ABUSED, NEGLECTED, OR IN AN UNSAFE ENVIRONMENT? NO . ENDOCRINOLOGY: ARE YOU DIABETIC? NO . OTHER: DO YOU NEED ANY PRESCRIPTIONS? NO . IF YES, PLEASE LIST: ____ . ANY NEW PROBLEMS WITH YOUR MEDICATIONS? NO . WHEN DID YOU LAST EAT? ____ . WHEN DID YOU LAST DRINK? ____ . WHAT DID YOU LAST DRINK? ____ . NAME OF PERSON DRIVING YOU HOME? ____ . DO YOU HAVE ANY OTHER QUESTIONS OR CONCERNS NO . VITAL SIGNS WT 158.6 LBS, HT 62 IN, BMI 29.01 INDEX, BP 146/89 MM HG, HR 94 /MIN, RR 18 /MIN, TEMP 96.8 F, OXYGEN SAT % 98%, SAFE IN ENV? (Y/N) YES, NA INITIALS HI 11:27, REVIEWED BY: EMILEE. EXAMINATION GENERAL EXAMINATION: GENERAL AWAKE,ALERT. PSYCH AFFECT NORMAL . LUNGS: LUNG HERNANDEZ ARE CLEAR TO AUSCULTATION BILATERALLY. GOOD MOVEMENT OF AIR . HEART: S1, S2 IN A REGULAR RATE AND RHYTHM. NO SIGNIFICANT MURMURS, RUBS OR GALLOPS NOTED . CERVICAL TENDER OVER CERVICAL SPINE AND CERVICAL PARASPINALS.. DIAGNOSTIC TESTS REVIEWEDCERVICAL SPINE X-RAY 07/12/2019. ASSESSMENTS MYALGIA, OTHER SITE - M79.18 (PRIMARY) TREATMENT MYALGIA, OTHER SITE START TRAMADOL HCL TABLET, 50 MG, 1 TABLET NEEDED, ORALLY, Q6H PRN MDD4, 30 DAYS, 120, REFILLS 1 [facility] MRI SPINE, CERVICAL WITHOUT [id number] NOTES: RECOMMEND MRI OF CERVICAL SPINE. CERVICAL X-RAY DONE ON 07/12/2019 IS NOT SHOWING PATHOLOGY YET PATIENT CONTINUES TO SUFFER FROM DAILY NECK PAIN THAT RADIATES INTO HIS SHOULDERS. PATIENT HAS FAILED CONSERVATIVE THERAPY TO INCLUDE PHYSICAL THERAPY WITHIN THE PAST 6 MONTHS AND NONSTEROIDAL ANTI-INFLAMMATORY THERAPY. RECENTLY HAD TRIGGER POINT INJECTIONS TO THE NECK AND SHOULDER AREA WITHOUT IMPROVEMENT IN HER PAIN. WE WILL NEED A CERVICAL MRI TO ESTABLISH PLAN OF CARE. PROCEDURE CODES FA211 ESTABILISHED PATIENT [facility] CHARGE DISPOSITION & COMMUNICATION FOLLOW UP 6 WEEKS (REASON: NECK PAIN /MRI) ELECTRONICALLY SIGNED BY JOS STOCK ON 08/22/2019 AT 03:34 PM EST DISCLAIMER : THIS IS A VISIT SUMMARY EXTRACTED FROM THE [employer] CHART. IT IS NOT A COPY OF THE [employer] PROGRESS NOTE. JOYCELYN
== END ==
LOC: M PAIN 11:00
PROVIDERS: ATTEND Nurse Practitioner Family
DX: M79.18 Myalgia, other site (principal); G43.909 Migraine, unspecified, not intractable, without status migrainosus; Z88.1 Allergy status to other antibiotic agents; Z88.7 Allergy status to serum and vaccine; Z79.899 Other long term (current) drug therapy

== ENCOUNTER → 2019-08-31 | Outpatient (REF) | payer OTHER ==
[2019-08-31 22:48] LABS: INFLUENZA A AMPLIFICATION NEGATIVE (NEGATIVE); INFLUENZA B AMPLIFICATION POSITIVE (NEGATIVE)
== END ==
LOC: M LAB REF 12:27
PROVIDERS: ATTEND Physician Assistant
DX: J11.1 Influenza due to unidentified influenza virus with other respiratory manifestations (principal)

== ENCOUNTER → 2019-12-28 | Outpatient (CLI) | payer OTHER ==
--- NOTE | 2019-12-29 23:56 | ECWPNPC ---
PATIENT NAME: MIL MARTÍNEZ : 1985 GENDER: FEMALE VISIT DATE: 12/28/2019 DISCHARGE DATE: 12/28/19 1336 VISIT LOCKED DATE TIME: PHYSICIAN: BRAULIO SPANGLER RESOURCE: BRAULIO SPANGLER REASON FOR APPOINTMENT 1. SHOULDERS HISTORY OF PRESENT ILLNESS GENERAL: HERE FOR FOLLOW-UP OF PERSISTENT NECK PAIN. MRI OF THE CERVICAL SPINE DONE ON 08/17/2019 IS REVIEWED. THIS IS SHOWING A DISC PROTRUSION AT C5-6. PATIENT COMPLAINS OF INTERMITTENT LEFT PINKY AND RING FINGER NUMBNESS AND TINGLING. OVERALL FEELS THOUGH HER NECK PAIN IS DOING OKAY. IS NOT DISRUPTING HER SLEEP OR ACTIVITIES OF DAILY LIVING. DISCUSSED TREATMENT OPTIONS FOR NECK PAIN. CURRENTLY BEING BOTHERED BY RIGHT LOWER EXTREMITY SCIATIC SYMPTOMS. SHE WILL ADDRESS THIS WITH PRIMARY CARE PROVIDER NEXT WEEK. CURRENTLY USING TRAMADOL PERIODICALLY FOR SEVERE PAIN EPISODES AND FINDS THIS MEDICATION HELPFUL. -. FALL RISK SCREENING: SCREENING :NO FALLS REPORTED IN THE LAST YEAR PAIN SCREENING: PATIENT HAS A COMPLAINT OF ACUTE OR CHRONIC PAIN :YES 12/28/19 INTENSITY OF PAIN (SCALE OF 1 TO 10):4 WHAT DOES YOUR PAIN FEEL LIKE:ACHING, CONTINOUS, INTERMITTENT, THROBBING, SHOOTING PAIN IS INCREASED BY: ACTIVITIES PAIN IS DECREASED BY: HEATING PAD NURSING NOTE: -. PAIN CENTER INTAKE QUESTIONS: DO YOU HAVE A HISTORY OF MRSA? :NO DO YOU TAKE A BLOOD THINNERS? :NO DO YOU HAVE ANY BLEEDING DISORDERS? :NO ANY NEW NUMBNESS OR WEAKNESS IN YOUR LEGS OR ARMS? :NO ANY PACEMAKER,DEFIBRILLATOR, OR DORSAL COLUMN STIMULATOR? :NO DO YOU HAVE ANY RASHES OR OPEN SORES? :NO ARE YOU ALLERGIC TO IV DYE? :NO ARE YOU DIABETIC? :NO ANY NEW PROBLEMS WITH YOUR MEDICATIONS? :NO HAVE YOU RECEIVED A VACCINE IN THE PAST 30 DAYS? :NO DO YOU PLAN TO RECEIVE A VACCINE IN THE NEXT 21 DAYS? :NO DO YOU NEED ANY PRESCRIPTION? :YES TRAMADOL DO YOU TAKE ANY IMMUNOSUPPRESSIVE MEDICATIONS? :NO CURRENT MEDICATIONS TAKING ACETAMINOPHEN 500 MG CAPSULE 2 CAPSULES NEEDED ORALLY EVERY 6 HRS TAKING MAXALT 10 MG TABLET 1 TABLET ORALLY AT THE ONSET OF HEADACHE. MAY REPEAT IN 2 HOURS IF NEEDED. MAXIMUM 30 MG IN A 24 HOUR PERIOD. (6 HAS PER MONTH) TAKING LISINOPRIL 30 MG TABLET 1 TABLET ORALLY ONCE A DAY TAKING ARNICA 20 % TINCTURE DIRECTED EXTERNALLY TAKING TRAMADOL HCL 50 MG TABLET 1 TABLET NEEDED ORALLY Q6H PRN MDD4 NOT-TAKING CARVEDILOL 12.5 MG TABLET 1 TABLET ORALLY TWICE A DAY NOT-TAKING VITAMIN D2 10 MCG (400 UNIT) TABLET 1.25MG ORALLY WEEKLY NOT-TAKING DICLOFENAC POTASSIUM 50 MG TABLET 1 TABLET ORALLY THREE TIMES DAILY NEEDED, NOTES: NOT USING CURRENTLY NOT-TAKING CELEXA 10 MG TABLET 1 TABLET ORALLY ONCE A DAY NOT-TAKING OMEPRAZOLE 40 MG CAPSULE DELAYED RELEASE 1 CAPSULE 30 MINUTES BEFORE MORNING MEAL ORALLY ONCE A DAY NOT-TAKING MOBIC 7.5 MG TABLET 1 TABLET ORALLY ONCE A DAY NOT-TAKING FLEXERIL 10 MG 30 10 MG TABLETS ONE TABLET ORALLY EVERY 8 HOURS PRN PAIN NOT-TAKING MULTIVITAMINS CAPSULE ORALLY NOT-TAKING IBUPROFEN 200 MG TABLET 1 TABLET NEEDED ORALLY EVERY 6 HRS NOT-TAKING MAGNESIUM OXIDE 400 MG TABLET 1 TAB ORALLY DAILY MEDICATION LIST REVIEWED AND RECONCILED WITH THE PATIENT PAST MEDICAL HISTORY MIGRAINE HAS ENDOMETRIOSIS SLEEP APNEA CHILD, RESOLVED AFTER T&A MURMUR H/O KIDNEY STONES POLYCYSTIC OVARIES FX LEFT WRIST PALPITATIONS ALLERGIC RHINITIS ALLERGIES PERTUSSIS: HOSPITALIZED INFANT - ALLERGY CEFDINIR: HIVES - ALLERGY SURGICAL HISTORY T&A 1994 LAPAROSCOPY (ENDOMETRIOSIS) 2006 HYSTERECTOMY 03/13/19 CHOLECYSTECTOMY 03/13/19 FAMILY HISTORY FATHER: ALIVE, DIAGNOSED WITH HYPERTENSION MOTHER: ALIVE, HAS, HYPERTENSION SIBLINGS: ALIVE, NO KNOWN MEDICAL PROBLEMS 1 BROTHER(S) - HEALTHY. 2DAUGHTER(S) - HEALTHY. HOSPITALIZATION/MAJOR DIAGNOSTIC PROCEDURE SURGERY RELATED REVIEW OF SYSTEMS CONSTITUTIONAL: ANY RECENT FEVER OR ILLNESS NO . CHILLS NO . GASTROENTEROLOGY: BOWEL INCONTINENCE NO . ANY NEW CHANGE IN BOWEL CONTROL? NO . ABDOMINAL PAIN NO . CONSTIPATION NO . GENITOURINARY: ANY NEW CHANGE IN BLADDER CONTROL? NO . IS THERE A CHANCE YOU COULD BE ? NO . URINARY INCONTINENCE NO . CARDIOLOGY: CHEST PRESSURE NO . CHEST PAIN NO . RESPIRATORY: COUGH NO . SHORTNESS OF BREATH NO . VITAL SIGNS WT 163 LBS, HT 62 IN, BMI 29.81 INDEX, BP 170/100 MANUAL, HR 96 /MIN, RR 18 /MIN, TEMP 98.5 F, OXYGEN SAT % 100%, NA INITIALS AW 1248. EXAMINATION GENERAL EXAMINATION: GENERALAWAKE,ALERT ,PLEASANT . PSYCHAFFECT NORMAL . LUNGS:LUNG HERNANDEZ ARE CLEAR TO AUSCULTATION BILATERALLY. GOOD MOVEMENT OF AIR . HEART:S1, S2 IN A REGULAR RATE AND RHYTHM. NO SIGNIFICANT MURMURS, RUBS OR GALLOPS NOTED . ASSESSMENTS MYALGIA, OTHER SITE - M79.18 (PRIMARY) CERVICALGIA - M54.2 TREATMENT MYALGIA, OTHER SITE REFILL TRAMADOL HCL TABLET, 50 MG, 1 TABLET NEEDED, ORALLY, Q6H PRN MDD4, 30 DAYS, 120, REFILLS 1 NOTES: FOLLOW-UP IS SCHEDULED IN 2 MONTHS FOR MEDICINE MANAGEMENT. PATIENT IS ADVISED TO BRING HER MEDICATION TO EVERY CLINIC VISIT. URINE FOR TOXICOLOGY AT FOLLOW-UP. CONTINUE USE OF TRAMADOL PERIODICALLY FOR SEVERE PAIN EPISODES. CONTINUE HOME STRETCHING EXERCISES. RECOMMEND USE OF HEAT. RECOMMEND USE OF VOLTAREN GEL [id number] TWICE A DAY TO NECK AREA. ADVISED TO DISCUSS TREATMENT PLAN FOR LOW BACK PAIN WITH PRIMARY CARE PROVIDER. SHE WOULD NEED A REFERRAL FROM PRIMARY CARE FOR US TO ADDRESS LOW BACK PAIN ISSUES. DISPOSITION & COMMUNICATION FOLLOW UP 2 MONTHS (REASON: MED MANAGEMENT, NECK PAIN, URINE TOXICOLOGY) ELECTRONICALLY SIGNED BY JOS STOCK ON 12/29/2019 AT 02:42 PM EDT DISCLAIMER : THIS IS A VISIT SUMMARY EXTRACTED FROM THE [employer] CHART. IT IS NOT A COPY OF THE [employer] PROGRESS NOTE. JOYCELYN
== END ==
LOC: M PAIN 13:00
PROVIDERS: ATTEND Nurse Practitioner Family
DX: M79.18 Myalgia, other site (principal); M54.2 Cervicalgia

== ENCOUNTER → 2020-02-27 | Outpatient (POV) | payer OTHER ==
[~2020-02-27] MED LIST changes: -AMLO10TA5 PO; +AMLO1TAB25 PO
== END ==
LOC: M PAIN 09:00
PROVIDERS: ATTEND Nurse Practitioner Family
DX: M79.18 Myalgia, other site (principal)

== ENCOUNTER → 2020-03-03 | Outpatient (REF) | payer OTHER ==
[2020-03-30 22:47] LABS: BASO # 0.1 10^3/uL (0.0-0.2); BASO % 0.7 % (0.0-1.0); EOS # 0.1 10^3/uL (0.0-0.5); EOS % 1.9 % (0.0-3.0); HEMATOCRIT 44.5 % (36.0-47.0); HEMOGLOBIN 14.2 g/dl (12.0-15.5); LYMPH # 1.9 10^3/uL (1.5-5.0); LYMPH % 26.3 % (24.0-44.0); MEAN CORPUSCULAR HEMOGLOBIN 30.3 pg (27.0-33.0); MEAN CORPUSCULAR HGB CONC 31.9 g/dl (32.0-36.5); MEAN CORPUSCULAR VOLUME 95.1 fl (80.0-96.0); MONO # 0.6 10^3/uL (0.0-0.8); MONO % 7.6 % (0.0-5.0); NEUTROPHILS # 4.6 10^3/uL (1.5-8.5); NEUTROPHILS % 63.4 % (36.0-66.0); PLATELET COUNT, AUTOMATED 338 10^3/uL (150-450); RED BLOOD COUNT 4.68 10^6/uL (4.00-5.40); WHITE BLOOD COUNT 7.2 10^3/uL (4.0-10.0)
[2020-04-04 08:17] LABS: ALT/SGPT 16 U/L (12-78); BILIRUBIN,TOTAL 0.3 MG/DL (0.2-1.0); BLOOD UREA NITROGEN 13 MG/DL (7-18); CALCIUM LEVEL 9.3 MG/DL (8.5-10.1); CARBON DIOXIDE LEVEL 30 MEQ/L (21-32); CHLORIDE LEVEL 106 MEQ/L (98-107); CHOLESTEROL LEVEL 171 MG/DL (<200); CREATININE FOR GFR 0.74 MG/DL (0.55-1.30); FREE T4 1.01 NG/DL (0.76-1.46); GLOMERULAR FILTRATION RATE > 60.0 (>60); GLUCOSE, FASTING 95 MG/DL (70-100); HDL CHOLESTEROL 57 MG/DL (>40); LDL CHOLESTEROL 82 MG/DL (<100); NON-HDL-C 114 MG/DL; SODIUM LEVEL 140 MEQ/L (136-145); THYROID STIMULATING HORMONE 0.452 uIU/ML (0.358-3.740); TOTAL 25(OH) VITAMIN D 27.3 NG/ML (30.0-100.0); TOTAL PROTEIN 7.2 GM/DL (6.4-8.2); TRIGLYCERIDES LEVEL 160 MG/DL (<150)
[2020-04-29 11:08] LABS: TISSUE TRANSGLUTAMINASE IgA SEE SEPARATE REPORT UNITS; TISSUE TRANSGLUTAMINASE IgG SEE SEPARATE REPORT; UNITSIGA FOR GLIADIN IGA SEE SEPARATE REPORT UNITS; UNITSIGG FOR GLIADIN IGG SEE SEPARATE REPORT UNITS
== END ==
LOC: M WUC 11:20
PROVIDERS: ATTEND Physician Assistant
DX: K58.0 Irritable bowel syndrome with diarrhea (principal); Z13.29 Encounter for screening for other suspected endocrine disorder; Z13.220 Encounter for screening for lipoid disorders

== ENCOUNTER → 2020-05-29 | Outpatient (CLI) | payer OTHER ==
--- NOTE | 2020-05-31 02:22 | ECWPNPC ---
PATIENT NAME: MIL MARTÍNEZ : 1985 GENDER: FEMALE VISIT DATE: 05/29/2020 DISCHARGE DATE: 05/29/20 1430 VISIT LOCKED DATE TIME: PHYSICIAN: BRAULIO SPANGLER PHYSICIAN PAGER NO: ACTIVE RESOURCE: BRAULIO SPANGLER REASON FOR APPOINTMENT 1. 3MOS F/U HISTORY OF PRESENT ILLNESS DEPRESSION SCREENING: PHQ-2 (2015 EDITION) LITTLE INTEREST OR PLEASURE IN DOING THINGS?NOT AT ALL FEELING DOWN, DEPRESSED, OR HOPELESS?NOT AT ALL TOTAL SCORE0 GENERAL: HERE FOR MEDICATION MANAGEMENT OF PERSISTENT NECK PAIN. CURRENTLY USING TRAMADOL 50 MG 1 TABLET EVERY 6 HOURS NEEDED FOR SEVERE PAIN EPISODES WITH MAXIMUM DAILY DOSE OF 4. PATIENT FINDS MEDICATION HELPFUL AT REDUCING PAIN AND KEEPING HER FUNCTIONAL. DENIES ADVERSE SIDE EFFECTS. -. FALL RISK SCREENING: SCREENING :NO FALLS REPORTED IN THE LAST YEAR NONE PAIN SCREENING: PATIENT HAS A COMPLAINT OF ACUTE OR CHRONIC PAIN :YES LOCATION OF PAIN:RIGHT SHOULDER INTENSITY OF PAIN (SCALE OF 1 TO 10):2 WHAT DOES YOUR PAIN FEEL LIKE:ACHING, BURNING TIGHT FEELING DURATION:CONTINOUS PAIN IS INCREASED BY:ACTIVITIES PAIN IS DECREASED BY:USE OF PAIN MEDICATIONS NURSING NOTE: -. PAIN CENTER INTAKE QUESTIONS: DO YOU HAVE A HISTORY OF MRSA? :NO DO YOU TAKE A BLOOD THINNERS? :NO DO YOU HAVE ANY BLEEDING DISORDERS? :NO ANY NEW NUMBNESS OR WEAKNESS IN YOUR LEGS OR ARMS? :NO ANY PACEMAKER,DEFIBRILLATOR, OR DORSAL COLUMN STIMULATOR? :NO DO YOU HAVE ANY RASHES OR OPEN SORES? :NO ARE YOU ALLERGIC TO IV DYE? :NO ARE YOU DIABETIC? :NO ANY NEW PROBLEMS WITH YOUR MEDICATIONS? :NO HAVE YOU RECEIVED A VACCINE IN THE PAST 30 DAYS? :NO DO YOU PLAN TO RECEIVE A VACCINE IN THE NEXT 21 DAYS? :NO DO YOU NEED ANY PRESCRIPTION? :NO DO YOU TAKE ANY IMMUNOSUPPRESSIVE MEDICATIONS? :NO IS THERE A CHANCE YOU COULD BE ? :NO ARE YOU BREAST FEEDING? :NO CURRENT MEDICATIONS TAKING ACETAMINOPHEN 500 MG CAPSULE 2 CAPSULES NEEDED ORALLY EVERY 6 HRS TAKING MAXALT 10 MG TABLET 1 TABLET ORALLY AT THE ONSET OF HEADACHE. MAY REPEAT IN 2 HOURS IF NEEDED. MAXIMUM 30 MG IN A 24 HOUR PERIOD. (6 HAS PER MONTH) TAKING LISINOPRIL 30 MG TABLET 1 TABLET ORALLY ONCE A DAY TAKING ARNICA 20 % TINCTURE DIRECTED EXTERNALLY TAKING TRAMADOL HCL 50 MG TABLET 1 TABLET NEEDED ORALLY Q6H PRN MDD4 TAKING CARVEDILOL 12.5 MG TABLET 1 TABLET WITH FOOD ORALLY TWICE A DAY NOT-TAKING CARVEDILOL 12.5 MG TABLET 1 TABLET ORALLY TWICE A DAY NOT-TAKING VITAMIN D2 10 MCG (400 UNIT) TABLET 1.25MG ORALLY WEEKLY NOT-TAKING DICLOFENAC POTASSIUM 50 MG TABLET 1 TABLET ORALLY THREE TIMES DAILY NEEDED, NOTES: NOT USING CURRENTLY NOT-TAKING CELEXA 10 MG TABLET 1 TABLET ORALLY ONCE A DAY NOT-TAKING OMEPRAZOLE 40 MG CAPSULE DELAYED RELEASE 1 CAPSULE 30 MINUTES BEFORE MORNING MEAL ORALLY ONCE A DAY NOT-TAKING MOBIC 7.5 MG TABLET 1 TABLET ORALLY ONCE A DAY NOT-TAKING FLEXERIL 10 MG 30 10 MG TABLETS ONE TABLET ORALLY EVERY 8 HOURS PRN PAIN NOT-TAKING MULTIVITAMINS CAPSULE ORALLY NOT-TAKING IBUPROFEN 200 MG TABLET 1 TABLET NEEDED ORALLY EVERY 6 HRS NOT-TAKING MAGNESIUM OXIDE 400 MG TABLET 1 TAB ORALLY DAILY MEDICATION LIST REVIEWED AND RECONCILED WITH THE PATIENT PAST MEDICAL HISTORY MIGRAINE HAS ENDOMETRIOSIS SLEEP APNEA CHILD, RESOLVED AFTER T&A MURMUR H/O KIDNEY STONES POLYCYSTIC OVARIES FX LEFT WRIST PALPITATIONS ALLERGIC RHINITIS ALLERGIES PERTUSSIS: HOSPITALIZED INFANT - ALLERGY CEFDINIR: HIVES - ALLERGY SURGICAL HISTORY T&A 1994 LAPAROSCOPY (ENDOMETRIOSIS) 2006 HYSTERECTOMY 03/13/19 CHOLECYSTECTOMY 03/13/19 FAMILY HISTORY FATHER: ALIVE, DIAGNOSED WITH HYPERTENSION MOTHER: ALIVE, HAS, HYPERTENSION SIBLINGS: ALIVE, NO KNOWN MEDICAL PROBLEMS 1 BROTHER(S) - HEALTHY. 2DAUGHTER(S) - HEALTHY. SOCIAL HISTORY GENERAL: TOBACCO USE ARE YOU A:NONSMOKER LATEX QUESTIONNAIRE LATEX ALLERGY : HAVE YOU EVER DEVELOPED ANY TYPE OF REACTION AFTER HANDLING LATEX PRODUCTS SUCH RUBBER GLOVES, CONDOMS, DIAPHRAGMS, BALLOONS, SOCKS, OR UNDERWEAR?NO LATEX ALLERGY : HAVE YOU EVER DEVELOPED ANY TYPE OF REACTION DURING OR AFTER DENTAL APPOINTMENT, VAGINAL/RECTAL EXAMINATION, SURGICAL PROCEDURE, OR ANY OTHER EXPOSURE?NO LATEX RISK : HAVE YOU EVER HAD ANY DIFFICULTY BREATHING OR HIVES AFTER EATING OR HANDLING ANY FRUITS, OR VEGETABLES; SUCH KIWI, BANANAS, STONE FRUITS, OR CHESTNUTSNO LATEX RISK : DO YOU HAVE A PREVIOUS PERSONAL HISTORY OF MORE THAN NINE SURGERIES, SPINA BIFIDA, OR REPEATED CATHERIZATIONS? NO LATEX RISK : ARE YOU FREQUENTLY EXPOSED TO LATEX PRODUCTS IN YOUR OCCUPATION?NO DATE ASKED : 05/29/2020 LUNG CANCER SCREENING SMOKING STATUS:NON SMOKER BMI CARE GOAL FOLLOW-UP BELOW NORMAL BMI FOLLOW-UPDIETARY EDUCATION FOR WEIGHT GAIN RECREATIONAL DRUG USE DENIES. CAFFEINE RARE. AMISH NO MORMONISM BELIEFS THAT WOULD IMPACT HEALTH CARE. LANGUAGE CAMEROONIAN. LEARNING BARRIERS / SPECIAL NEEDS BARRIERS TO LEARNING?NO HEARING IMPAIRED?NO VISION IMPAIRED?YES COGNITIVELY IMPAIRED?NO :CORRECTIVE LENSES GLASSES READINESS TO LEARN?YES LEARNING PREFERENCES?NO LEARNING CAPABILITIES PRESENT?YES EMOTIONAL BARRIERS?NO DOMESTIC VIOLENCE NONE. OCCUPATION: HOMEMAKER. DIET: HEALTHY. EXERCISE: PILATES; LOW-IMPACT AEROBICS. MARITAL STATUS: . PAIN CLINIC PFS, CLERGY, PUBLIC HEALTH REFERRALS HAS THE PATIENT BEEN EDUCATED REGARDING HIS/HER PLAN OF CARE?YES HAS THE PATIENT BEEN EDUCATED REGARDING PAIN, THE RISK FOR PAIN, THE IMPORTANCE OF EFFECTIVE PAIN MANAGEMENT, AND THE PAIN ASSESSMENT PROCESS?YES ADVANCE DIRECTIVE ADVANCE DIRECTIVE DISCUSSED WITH PATIENT:YES 08/04/2019 PT STATES THAT SHE DOES NOT HAVE HCP AT THIS TIME MAY CONSIDER FILLING ONE OUT IN FUTURE SHE HAS THE INFORMATION AT HOME ALREADY. JS REVIEWED NEW PT PAPERWORK 07/05/19 SREVIEWED WITH PATIENT 07/14/19 1501 NLJREVIEWED WITH PATIENT 08/04/2019 1129 JS. HOSPITALIZATION/MAJOR DIAGNOSTIC PROCEDURE SURGERY RELATED REVIEW OF SYSTEMS CONSTITUTIONAL: ANY RECENT FEVER NO . CHILLS NO . WEIGHT CHANGE OF UNKNOWN REASONS NO . GASTROENTEROLOGY: NEW UNEXPLAINABLE CHANGES IN BOWEL CONTROL NO . CONSTIPATION NO . GENITOURINARY: ANY NEW CHANGE IN BLADDER CONTROL? NO . NEUROLOGY: NEW ONSET DIZZINESS OR NEUROLOGICAL CHANGES NOT MENTIONED NO . NEW NUMBNESS OR PAIN PATTERNS NOT MENTIONED AND PERTINENT TO TODAY'S VISIT NO . CARDIOLOGY: NEW CHEST PRESSURE NO . NEW CHEST PAIN NO . RESPIRATORY: UNEXPLAINABLE COUGH NO . NEW SHORTNESS OF BREATH NO . VITAL SIGNS WT 166.6 LBS, HT 62 IN, BMI 30.47 INDEX, BP 212/123 MM HG, HR 126 /MIN, RR 18 /MIN, TEMP 98.3 F, OXYGEN SAT % 98%, SAFE IN ENV? (Y/N) EMILEE, REVIEWED BY: MATTY RECHECK. EXAMINATION GENERAL EXAMINATION: GENERALAWAKE,ALERT ,PLEASANT . PSYCHAFFECT NORMAL . LUNGS:LUNG HERNANDEZ ARE CLEAR TO AUSCULTATION BILATERALLY. GOOD MOVEMENT OF AIR . HEART:S1, S2 IN A REGULAR RATE AND RHYTHM. NO SIGNIFICANT MURMURS, RUBS OR GALLOPS NOTED . ASSESSMENTS MYALGIA, OTHER SITE - M79.18 (PRIMARY) CERVICALGIA - M54.2 TREATMENT MYALGIA, OTHER SITE CONTINUE TRAMADOL HCL TABLET, 50 MG, 1 TABLET NEEDED, ORALLY, Q6H PRN MDD4 NOTES: ISTOP REGISTRY REVIEWED AND DEMONSTRATES COMPLLIANCE. BRINGS IN MEDICATIONS WHICH IS APPROPRIATE FOR WHAT WAS DISPENSED. RECENT URINE TOXICOLOGY REVIEWED. NO UNAUTHORIZED MEDICATIONS. NO ILLICIT SUBSTANCES AND PRESCRIBED MEDICATIONS WERE PRESENT. URINE TOXICOLOGY TODAY , RISKS OF NARCOTIC/OPIOD MEDICATIONS INCLUDES BUT IS NOT LIMITED TO RISK OF DEPENDANCE/DEVELOPMENT OF ADDICTION, MOOD DISTURBANCE AND DEPRESSION, OSTEOPOROSIS, HORMONAL AND LABIDAL CHANGES, RESPIRATORY DEPRESSION AND . PATIENT IS ADVISED NOT TO DRIVE OR DRINK ALCOHOL WHILE ON THESE MEDICATIONS. PROCEDURE CODES FA211 ESTABILISHED PATIENT [facility] CHARGE DISPOSITION & COMMUNICATION FOLLOW UP 3 MONTHS (REASON: MEDICATION MANAGEMENT/CHRONIC NECK PAIN/REVIEW URINE TOX) ELECTRONICALLY SIGNED BY JOS STOCK ON 05/30/2020 AT 03:28 PM EST DISCLAIMER : THIS IS A VISIT SUMMARY EXTRACTED FROM THE [employer] CHART. IT IS NOT A COPY OF THE [employer] PROGRESS NOTE. JOYCELYN
== END ==
LOC: M PAIN 13:45
PROVIDERS: ATTEND Nurse Practitioner Family
DX: M79.18 Myalgia, other site (principal); M54.2 Cervicalgia; G43.909 Migraine, unspecified, not intractable, without status migrainosus; J30.9 Allergic rhinitis, unspecified; Z79.891 Long term (current) use of opiate analgesic; Z79.899 Other long term (current) drug therapy; Z88.8 Allergy status to other drugs, medicaments and biological substances; Z88.1 Allergy status to other antibiotic agents

== ENCOUNTER → 2020-09-16 | Outpatient (CLI) | payer OTHER ==
--- NOTE | 2020-09-21 23:56 | ECWPNPC ---
PATIENT NAME: MIL MARTÍNEZ : 1985 GENDER: FEMALE VISIT DATE: 09/16/2020 DISCHARGE DATE: 09/16/20 1552 VISIT LOCKED DATE TIME: PHYSICIAN: BRAULIO SPANGLER PHYSICIAN PAGER NO: ACTIVE RESOURCE: BRAULIO SPANGLER REASON FOR APPOINTMENT 1. MEDICATION HISTORY OF PRESENT ILLNESS PAIN CENTER INTAKE QUESTIONS: DO YOU HAVE A HISTORY OF MRSA? :NO DO YOU TAKE A BLOOD THINNERS? :NO DO YOU HAVE ANY BLEEDING DISORDERS? :NO ANY NEW NUMBNESS OR WEAKNESS IN YOUR LEGS OR ARMS? :NO ANY PACEMAKER,DEFIBRILLATOR, OR DORSAL COLUMN STIMULATOR? :NO DO YOU HAVE ANY RASHES OR OPEN SORES? :NO ARE YOU ALLERGIC TO IV DYE? :NO ARE YOU DIABETIC? :NO ANY NEW PROBLEMS WITH YOUR MEDICATIONS? :NO HAVE YOU RECEIVED A VACCINE IN THE PAST 30 DAYS? :NO DO YOU PLAN TO RECEIVE A VACCINE IN THE NEXT 21 DAYS? :NO DO YOU NEED ANY PRESCRIPTION? :YES REFILLED LAST REFILL ON TRAMADOL, WILL NEED NEW SCRIPT WITH REFILLS DO YOU TAKE ANY IMMUNOSUPPRESSIVE MEDICATIONS? :NO IS THERE A CHANCE YOU COULD BE ? :NO ARE YOU BREAST FEEDING? :NO GENERAL: HERE FOR MEDICATION MANAGEMENT OF PERSISTENT NECK PAIN. CURRENTLY USING TRAMADOL 50 MG 1 TABLET EVERY 6 HOURS NEEDED FOR SEVERE PAIN EPISODES WITH MAXIMUM DAILY DOSE OF 4. PATIENT FINDS MEDICATION HELPFUL AT REDUCING PAIN AND KEEPING HER FUNCTIONAL. DENIES ADVERSE SIDE EFFECTS. - -. FALL RISK SCREENING: SCREENING :NO FALLS REPORTED IN THE LAST YEAR PAIN SCREENING: PATIENT HAS A COMPLAINT OF ACUTE OR CHRONIC PAIN :YES INTENSITY OF PAIN (SCALE OF 1 TO 10):0 NURSING NOTE: -. CURRENT MEDICATIONS TAKING ACETAMINOPHEN 500 MG CAPSULE 2 CAPSULES NEEDED ORALLY EVERY 6 HRS TAKING MAXALT 10 MG TABLET 1 TABLET ORALLY AT THE ONSET OF HEADACHE. MAY REPEAT IN 2 HOURS IF NEEDED. MAXIMUM 30 MG IN A 24 HOUR PERIOD. (6 HAS PER MONTH) TAKING LISINOPRIL 30 MG TABLET 1 TABLET ORALLY ONCE A DAY TAKING ARNICA 20 % TINCTURE DIRECTED EXTERNALLY TAKING CARVEDILOL 12.5 MG TABLET 1 TABLET WITH FOOD ORALLY TWICE A DAY TAKING TRAMADOL HCL 50 MG TABLET 1 TABLET NEEDED ORALLY Q6H PRN MDD4 TAKING NORTRIPTYLINE HCL 10 MG CAPSULE 1 CAPSULE ORALLY ONCE A DAY NOT-TAKING CARVEDILOL 12.5 MG TABLET 1 TABLET ORALLY TWICE A DAY NOT-TAKING VITAMIN D2 10 MCG (400 UNIT) TABLET 1.25MG ORALLY WEEKLY NOT-TAKING DICLOFENAC POTASSIUM 50 MG TABLET 1 TABLET ORALLY THREE TIMES DAILY NEEDED, NOTES: NOT USING CURRENTLY NOT-TAKING CELEXA 10 MG TABLET 1 TABLET ORALLY ONCE A DAY NOT-TAKING OMEPRAZOLE 40 MG CAPSULE DELAYED RELEASE 1 CAPSULE 30 MINUTES BEFORE MORNING MEAL ORALLY ONCE A DAY NOT-TAKING MOBIC 7.5 MG TABLET 1 TABLET ORALLY ONCE A DAY NOT-TAKING FLEXERIL 10 MG 30 10 MG TABLETS ONE TABLET ORALLY EVERY 8 HOURS PRN PAIN NOT-TAKING MULTIVITAMINS CAPSULE ORALLY NOT-TAKING IBUPROFEN 200 MG TABLET 1 TABLET NEEDED ORALLY EVERY 6 HRS NOT-TAKING MAGNESIUM OXIDE 400 MG TABLET 1 TAB ORALLY DAILY MEDICATION LIST REVIEWED AND RECONCILED WITH THE PATIENT PAST MEDICAL HISTORY MIGRAINE HAS ENDOMETRIOSIS SLEEP APNEA CHILD, RESOLVED AFTER T&A MURMUR H/O KIDNEY STONES POLYCYSTIC OVARIES FX LEFT WRIST PALPITATIONS ALLERGIC RHINITIS ALLERGIES PERTUSSIS: HOSPITALIZED INFANT - ALLERGY CEFDINIR: HIVES - ALLERGY SOCIAL HISTORY GENERAL: TOBACCO USE ARE YOU A:NONSMOKER LATEX QUESTIONNAIRE LATEX ALLERGY : HAVE YOU EVER DEVELOPED ANY TYPE OF REACTION AFTER HANDLING LATEX PRODUCTS SUCH RUBBER GLOVES, CONDOMS, DIAPHRAGMS, BALLOONS, SOCKS, OR UNDERWEAR?NO LATEX ALLERGY : HAVE YOU EVER DEVELOPED ANY TYPE OF REACTION DURING OR AFTER DENTAL APPOINTMENT, VAGINAL/RECTAL EXAMINATION, SURGICAL PROCEDURE, OR ANY OTHER EXPOSURE?NO DATE ASKED : 05/29/2020 LATEX RISK : HAVE YOU EVER HAD ANY DIFFICULTY BREATHING OR HIVES AFTER EATING OR HANDLING ANY FRUITS, OR VEGETABLES; SUCH KIWI, BANANAS, STONE FRUITS, OR CHESTNUTSNO LATEX RISK : DO YOU HAVE A PREVIOUS PERSONAL HISTORY OF MORE THAN NINE SURGERIES, SPINA BIFIDA, OR REPEATED CATHERIZATIONS? NO LATEX RISK : ARE YOU FREQUENTLY EXPOSED TO LATEX PRODUCTS IN YOUR OCCUPATION?NO LUNG CANCER SCREENING SMOKING STATUS:NON SMOKER BMI CARE GOAL FOLLOW-UP BELOW NORMAL BMI FOLLOW-UPDIETARY EDUCATION FOR WEIGHT GAIN RECREATIONAL DRUG USE DENIES. CAFFEINE RARE. TAOIST NO CHRISTIAN BELIEFS THAT WOULD IMPACT HEALTH CARE. 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 LEARNING BARRIERS / SPECIAL NEEDS BARRIERS TO LEARNING?NO HEARING IMPAIRED?NO VISION IMPAIRED?YES COGNITIVELY IMPAIRED?NO :CORRECTIVE LENSES GLASSES READINESS TO LEARN?YES LEARNING PREFERENCES?NO LEARNING CAPABILITIES PRESENT?YES EMOTIONAL BARRIERS?NO DOMESTIC VIOLENCE NONE. OCCUPATION: HOMEMAKER. DIET: HEALTHY. EXERCISE: PILATES; LOW-IMPACT AEROBICS. MARITAL STATUS: . - HAS THE PATIENT BEEN EDUCATED REGARDING HIS/HER PLAN OF CARE?YES HAS THE PATIENT BEEN EDUCATED REGARDING PAIN, THE RISK FOR PAIN, THE IMPORTANCE OF EFFECTIVE PAIN MANAGEMENT, AND THE PAIN ASSESSMENT PROCESS?YES ADVANCE DIRECTIVE ADVANCE DIRECTIVE DISCUSSED WITH PATIENT:YES 08/04/2019 PT STATES THAT SHE DOES NOT HAVE HCP AT THIS TIME MAY CONSIDER FILLING ONE OUT IN FUTURE SHE HAS THE INFORMATION AT HOME ALREADY. JS REVIEWED NEW PT PAPERWORK 07/05/19 SREVIEWED WITH PATIENT 07/14/19 1501 NLJREVIEWED WITH PATIENT 08/04/2019 1129 JS. REVIEW OF SYSTEMS CONSTITUTIONAL: ANY RECENT FEVER NO . CHILLS NO . WEIGHT CHANGE OF UNKNOWN REASONS NO . GASTROENTEROLOGY: NEW UNEXPLAINABLE CHANGES IN BOWEL CONTROL NO . CONSTIPATION NO . GENITOURINARY: ANY NEW CHANGE IN BLADDER CONTROL? NO . NEUROLOGY: NEW ONSET DIZZINESS OR NEUROLOGICAL CHANGES NOT MENTIONED NO . NEW NUMBNESS OR PAIN PATTERNS NOT MENTIONED AND PERTINENT TO TODAY'S VISIT NO . CARDIOLOGY: NEW CHEST PRESSURE NO . PATIENT DENIES NO . RESPIRATORY: UNEXPLAINABLE COUGH NO . NEW SHORTNESS OF BREATH NO . VITAL SIGNS WT 164 LBS, HT 62 IN, BMI 29.99 INDEX, BP 169/96 MM HG, HR 88 /MIN, RR 16 /MIN, TEMP 96.6 F, OXYGEN SAT % 97, REVIEWED BY: EM. EXAMINATION GENERAL EXAMINATION: GENERALAWAKE,ALERT ,PLEASANT . PSYCHAFFECT NORMAL . LUNGS:LUNG HERNANDEZ ARE CLEAR TO AUSCULTATION BILATERALLY. GOOD MOVEMENT OF AIR . HEART:S1, S2 IN A REGULAR RATE AND RHYTHM. NO SIGNIFICANT MURMURS, RUBS OR GALLOPS NOTED . ASSESSMENTS MYALGIA, OTHER SITE - M79.18 (PRIMARY) CERVICALGIA - M54.2 TREATMENT MYALGIA, OTHER SITE REFILL TRAMADOL HCL TABLET, 50 MG, 1 TABLET NEEDED, ORALLY, Q6H PRN MDD4, 30 DAYS, 120, REFILLS 2 NOTES: ISTOP REGISTRY REVIEWED AND DEMONSTRATES COMPLLIANCE. BRINGS IN MEDICATIONS WHICH IS APPROPRIATE FOR WHAT WAS DISPENSED. ORAL SWAB TOXICOLOGY , RISKS OF NARCOTIC/OPIOD MEDICATIONS INCLUDES BUT IS NOT LIMITED TO RISK OF DEPENDANCE/DEVELOPMENT OF ADDICTION, MOOD DISTURBANCE AND DEPRESSION, OSTEOPOROSIS, HORMONAL AND LABIDAL CHANGES, RESPIRATORY DEPRESSION AND . PATIENT IS ADVISED NOT TO DRIVE OR DRINK ALCOHOL WHILE ON THESE MEDICATIONS. PROCEDURE CODES FA211 ESTABILISHED PATIENT [facility] CHARGE DISPOSITION & COMMUNICATION FOLLOW UP 3 MONTHS (REASON: MED MGMNT REVIEW ORAL SWAB TOX) ELECTRONICALLY SIGNED BY JOS STOCK ON 09/21/2020 AT 08:36 PM EST DISCLAIMER : THIS IS A VISIT SUMMARY EXTRACTED FROM THE [employer] CHART. IT IS NOT A COPY OF THE [employer] PROGRESS NOTE. JOYCELYN
== END ==
LOC: M PAIN 14:45
PROVIDERS: ATTEND Nurse Practitioner Family
DX: M79.18 Myalgia, other site (principal); M54.2 Cervicalgia; Z79.891 Long term (current) use of opiate analgesic; Z79.899 Other long term (current) drug therapy; G43.909 Migraine, unspecified, not intractable, without status migrainosus; E28.2 Polycystic ovarian syndrome; Z88.7 Allergy status to serum and vaccine; Z88.1 Allergy status to other antibiotic agents

== ENCOUNTER → 2020-12-17 | Outpatient (CLI) | payer OTHER ==
--- NOTE | 2020-12-19 00:20 | ECWPNPC ---
PATIENT NAME: MIL MARTÍNEZ : 1985 GENDER: FEMALE VISIT DATE: 12/17/2020 DISCHARGE DATE: 12/17/20 1128 VISIT LOCKED DATE TIME: PHYSICIAN: BRAULIO SPANGLER PHYSICIAN PAGER NO: ACTIVE RESOURCE: BRAULIO SPANGLER REASON FOR APPOINTMENT 1. MED MGMNT REVIEW ORAL SWAB TOX HISTORY OF PRESENT ILLNESS GENERAL: HERE FOR MEDICATION MANAGEMENT OF PERSISTENT NECK PAIN. CURRENTLY USING TRAMADOL 50 MG 1 TABLET EVERY 6 HOURS NEEDED FOR SEVERE PAIN EPISODES WITH MAXIMUM DAILY DOSE OF 4. PATIENT FINDS MEDICATION HELPFUL AT REDUCING PAIN AND KEEPING HER FUNCTIONAL. DENIES ADVERSE SIDE EFFECTS. - - -. FALL RISK SCREENING: SCREENING : NO FALLS REPORTED IN THE LAST YEAR. PAIN SCREENING: PATIENT HAS A COMPLAINT OF ACUTE OR CHRONIC PAIN :YES LOCATION OF PAIN:NECK, LEFT SHOULDER, RIGHT SHOULDER INTENSITY OF PAIN (SCALE OF 1 TO 10):2 AVERAGE 5 OR 6 WHAT DOES YOUR PAIN FEEL LIKE:ACHING, CONTINOUS, SHARP, SHOOTING TENSE DURATION:CONTINOUS, AWAKENS FROM SLEEP PAIN IS INCREASED BY:ACTIVITIES PAIN IS DECREASED BY:USE OF PAIN MEDICATIONS, SITTING, OTHERS TRAMADOL, STRETCHING NURSING NOTE: -. PAIN CENTER INTAKE QUESTIONS: DO YOU HAVE A HISTORY OF MRSA? :NO DO YOU TAKE A BLOOD THINNERS? :NO DO YOU HAVE ANY BLEEDING DISORDERS? :NO ANY NEW NUMBNESS OR WEAKNESS IN YOUR LEGS OR ARMS? :NO ANY PACEMAKER,DEFIBRILLATOR, OR DORSAL COLUMN STIMULATOR? :NO DO YOU HAVE ANY RASHES OR OPEN SORES? :NO ARE YOU ALLERGIC TO IV DYE? :NO ARE YOU DIABETIC? :NO ANY NEW PROBLEMS WITH YOUR MEDICATIONS? :NO HAVE YOU RECEIVED A VACCINE IN THE PAST 30 DAYS? :NO DO YOU PLAN TO RECEIVE A VACCINE IN THE NEXT 21 DAYS? :NO DO YOU NEED ANY PRESCRIPTION? :YES DO YOU TAKE ANY IMMUNOSUPPRESSIVE MEDICATIONS? :NO IS THERE A CHANCE YOU COULD BE ? :NO ARE YOU BREAST FEEDING? :NO CURRENT MEDICATIONS TAKING ACETAMINOPHEN 500 MG CAPSULE 2 CAPSULES NEEDED ORALLY EVERY 6 HRS TAKING MAXALT 10 MG TABLET 1 TABLET ORALLY AT THE ONSET OF HEADACHE. MAY REPEAT IN 2 HOURS IF NEEDED. MAXIMUM 30 MG IN A 24 HOUR PERIOD. (6 HAS PER MONTH) TAKING LISINOPRIL 30 MG TABLET 1 TABLET ORALLY ONCE A DAY TAKING ARNICA 20 % TINCTURE DIRECTED EXTERNALLY TAKING CARVEDILOL 12.5 MG TABLET 1 TABLET WITH FOOD ORALLY TWICE A DAY TAKING TRAMADOL HCL 50 MG TABLET 1 TABLET NEEDED ORALLY Q6H PRN MDD4 TAKING VITAMIN D (ERGOCALCIFEROL) 1.25 MG (60862 UT) CAPSULE 1 CAPSULE ORALLY WEEKLY NOT-TAKING NORTRIPTYLINE HCL 10 MG CAPSULE 1 CAPSULE ORALLY ONCE A DAY UNKNOWN CARVEDILOL 12.5 MG TABLET 1 TABLET ORALLY TWICE A DAY UNKNOWN VITAMIN D2 10 MCG (400 UNIT) TABLET 1.25MG ORALLY WEEKLY UNKNOWN DICLOFENAC POTASSIUM 50 MG TABLET 1 TABLET ORALLY THREE TIMES DAILY NEEDED, NOTES: NOT USING CURRENTLY UNKNOWN CELEXA 10 MG TABLET 1 TABLET ORALLY ONCE A DAY UNKNOWN OMEPRAZOLE 40 MG CAPSULE DELAYED RELEASE 1 CAPSULE 30 MINUTES BEFORE MORNING MEAL ORALLY ONCE A DAY UNKNOWN MOBIC 7.5 MG TABLET 1 TABLET ORALLY ONCE A DAY UNKNOWN FLEXERIL 10 MG 30 10 MG TABLETS ONE TABLET ORALLY EVERY 8 HOURS PRN PAIN UNKNOWN MULTIVITAMINS CAPSULE ORALLY UNKNOWN IBUPROFEN 200 MG TABLET 1 TABLET NEEDED ORALLY EVERY 6 HRS UNKNOWN MAGNESIUM OXIDE 400 MG TABLET 1 TAB ORALLY DAILY MEDICATION LIST REVIEWED AND RECONCILED WITH THE PATIENT PAST MEDICAL HISTORY MIGRAINE HAS ENDOMETRIOSIS SLEEP APNEA CHILD, RESOLVED AFTER T&A MURMUR H/O KIDNEY STONES POLYCYSTIC OVARIES FX LEFT WRIST PALPITATIONS ALLERGIC RHINITIS ALLERGIES PERTUSSIS: HOSPITALIZED INFANT - ALLERGY CEFDINIR: HIVES - ALLERGY SOCIAL HISTORY GENERAL: TOBACCO USE ARE YOU A:NONSMOKER LATEX QUESTIONNAIRE LATEX ALLERGY : HAVE YOU EVER DEVELOPED ANY TYPE OF REACTION AFTER HANDLING LATEX PRODUCTS SUCH RUBBER GLOVES, CONDOMS, DIAPHRAGMS, BALLOONS, SOCKS, OR UNDERWEAR?NO LATEX ALLERGY : HAVE YOU EVER DEVELOPED ANY TYPE OF REACTION DURING OR AFTER DENTAL APPOINTMENT, VAGINAL/RECTAL EXAMINATION, SURGICAL PROCEDURE, OR ANY OTHER EXPOSURE?NO LATEX RISK : HAVE YOU EVER HAD ANY DIFFICULTY BREATHING OR HIVES AFTER EATING OR HANDLING ANY FRUITS, OR VEGETABLES; SUCH KIWI, BANANAS, STONE FRUITS, OR CHESTNUTSNO LATEX RISK : DO YOU HAVE A PREVIOUS PERSONAL HISTORY OF MORE THAN NINE SURGERIES, SPINA BIFIDA, OR REPEATED CATHERIZATIONS? NO LATEX RISK : ARE YOU FREQUENTLY EXPOSED TO LATEX PRODUCTS IN YOUR OCCUPATION?NO DATE ASKED : 12/17/2020 ALCOHOL USE: OCCASIONAL. LUNG CANCER SCREENING SMOKING STATUS:NON SMOKER BMI CARE GOAL FOLLOW-UP BELOW NORMAL BMI FOLLOW-UPDIETARY EDUCATION FOR WEIGHT GAIN RECREATIONAL DRUG USE DENIES. CAFFEINE RARE. MUSLIM NO ISLAM BELIEFS THAT WOULD IMPACT HEALTH CARE. LANGUAGE KHMER. EDUCATION LEVEL OF EDUCATION:HIGH SCHOOL LEARNING BARRIERS / SPECIAL NEEDS CHANGE FROM LAST VISIT?NO BARRIERS TO LEARNING?NO HEARING IMPAIRED?NO VISION IMPAIRED?YES :CORRECTIVE LENSES GLASSES COGNITIVELY IMPAIRED?NO READINESS TO LEARN?YES LEARNING PREFERENCES?NO LEARNING CAPABILITIES PRESENT?YES EMOTIONAL BARRIERS?NO SPECIAL DEVICES?NO AIRPLANE CHARTER CLERK NEEDED?NO DOMESTIC VIOLENCE NONE. OCCUPATION: HOMEMAKER. DIET: HEALTHY. EXERCISE: PILATES; LOW-IMPACT AEROBICS. MARITAL STATUS: . - HAS THE PATIENT BEEN EDUCATED REGARDING HIS/HER PLAN OF CARE?YES HAS THE PATIENT BEEN EDUCATED REGARDING PAIN, THE RISK FOR PAIN, THE IMPORTANCE OF EFFECTIVE PAIN MANAGEMENT, AND THE PAIN ASSESSMENT PROCESS?YES ADVANCE DIRECTIVE ADVANCE DIRECTIVE DISCUSSED WITH PATIENT:YES 08/04/2019 PT STATES THAT SHE DOES NOT HAVE HCP AT THIS TIME MAY CONSIDER FILLING ONE OUT IN FUTURE SHE HAS THE INFORMATION AT HOME ALREADY. JS REVIEWED NEW PT PAPERWORK 07/05/19 SREVIEWED WITH PATIENT 07/14/19 1501 NLJREVIEWED WITH PATIENT 08/04/2019 1129 JS. REVIEW OF SYSTEMS CONSTITUTIONAL: ANY RECENT FEVER NO . CHILLS NO . WEIGHT CHANGE OF UNKNOWN REASONS NO . GASTROENTEROLOGY: NEW UNEXPLAINABLE CHANGES IN BOWEL CONTROL NO . CONSTIPATION NO . GENITOURINARY: ANY NEW CHANGE IN BLADDER CONTROL? NO . NEUROLOGY: NEW ONSET DIZZINESS OR NEUROLOGICAL CHANGES NOT MENTIONED NO . NEW NUMBNESS OR PAIN PATTERNS NOT MENTIONED AND PERTINENT TO TODAY'S VISIT NO . CARDIOLOGY: NEW CHEST PRESSURE NO . PATIENT DENIES NO . RESPIRATORY: UNEXPLAINABLE COUGH NO . NEW SHORTNESS OF BREATH NO . VITAL SIGNS WT 160.6 LBS, HT 62 IN, BMI 29.37 INDEX, BP 179/115 MM HG, REPEAT BP 142/101 MANUAL, HR 84 /MIN, RR 18 /MIN, TEMP 98.2 F, OXYGEN SAT % 98%, SAFE IN ENV? (Y/N) YES, NA INITIALS AW 1054, REVIEWED BY: FER PERRY MA. EXAMINATION GENERAL EXAMINATION: GENERALAWAKE,ALERT ,PLEASANT . PSYCHAFFECT NORMAL . LUNGS:LUNG HERNANDEZ ARE CLEAR TO AUSCULTATION BILATERALLY. GOOD MOVEMENT OF AIR . HEART:S1, S2 IN A REGULAR RATE AND RHYTHM. NO SIGNIFICANT MURMURS, RUBS OR GALLOPS NOTED . ASSESSMENTS MYALGIA, OTHER SITE - M79.18 (PRIMARY) CERVICALGIA - M54.2 TREATMENT MYALGIA, OTHER SITE REFILL TRAMADOL HCL TABLET, 50 MG, 1 TABLET NEEDED, ORALLY, Q6H PRN MDD4, 30 DAYS, 120, REFILLS 2 PROCEDURE CODES FA211 ESTABILISHED PATIENT [facility] CHARGE DISPOSITION & COMMUNICATION FOLLOW UP 3 MONTHS (REASON: MED MGMNT/UTOX/NECK PAIN) ELECTRONICALLY SIGNED BY JOS STOCK ON 12/18/2020 AT 02:12 PM EDT DISCLAIMER : THIS IS A VISIT SUMMARY EXTRACTED FROM THE [facility] CHART. IT IS NOT A COPY OF THE [employer] PROGRESS NOTE. MTDD
== END ==
LOC: M PAIN 10:45
PROVIDERS: ATTEND Nurse Practitioner Family
DX: M79.18 Myalgia, other site (principal); M54.2 Cervicalgia; G43.909 Migraine, unspecified, not intractable, without status migrainosus; J30.9 Allergic rhinitis, unspecified; E28.2 Polycystic ovarian syndrome; Z79.891 Long term (current) use of opiate analgesic; Z79.899 Other long term (current) drug therapy; Z88.7 Allergy status to serum and vaccine; Z88.1 Allergy status to other antibiotic agents

== ENCOUNTER → 2021-03-19 | Outpatient (CLI) | payer OTHER ==
[~2021-03-19] MED LIST changes: +OMEP40CA4 PO; -OMEP40CA97 PO
== END ==
LOC: M PAIN 13:30
PROVIDERS: ATTEND Anesthesiology
DX: M79.18 Myalgia, other site (principal); M47.812 Spondylosis without myelopathy or radiculopathy, cervical region; Z79.891 Long term (current) use of opiate analgesic; Z79.899 Other long term (current) drug therapy; Z88.1 Allergy status to other antibiotic agents; Z88.7 Allergy status to serum and vaccine

== ENCOUNTER → 2021-03-26 | Outpatient (CLI) | payer OTHER ==
[2021-03-26 18:08] LABS: BASO # 0.1 10^3/uL (0.0-0.2); BASO % 1.1 % (0.0-1.0); EOS # 0.1 10^3/uL (0.0-0.5); EOS % 0.7 % (0.0-3.0); HEMATOCRIT 43.4 % (36.0-47.0); HEMOGLOBIN 14.1 g/dl (12.0-15.5); LYMPH # 2.2 10^3/uL (1.5-5.0); LYMPH % 22.4 % (24.0-44.0); MEAN CORPUSCULAR HEMOGLOBIN 32.2 pg (27.0-33.0); MEAN CORPUSCULAR HGB CONC 32.5 g/dl (32.0-36.5); MEAN CORPUSCULAR VOLUME 99.1 fl (80.0-96.0); MONO # 0.7 10^3/uL (0.0-0.8); MONO % 6.7 % (2.0-8.0); NEUTROPHILS # 6.8 10^3/uL (1.5-8.5); NEUTROPHILS % 68.5 % (36.0-66.0); PLATELET COUNT, AUTOMATED 382 10^3/uL (150-450); RED BLOOD COUNT 4.38 10^6/uL (4.00-5.40)
[2021-03-26 18:29] LABS: ALBUMIN 3.4 GM/DL (3.2-5.2); ALT/SGPT 16 U/L (12-78); AMYLASE 57 U/L (25-115); BILIRUBIN,DIRECT 0.1 MG/DL (0.0-0.2); BILIRUBIN,TOTAL 0.4 MG/DL (0.2-1.0); BLOOD UREA NITROGEN 10 MG/DL (7-18); CALCIUM LEVEL 9.2 MG/DL (8.5-10.1); CARBON DIOXIDE LEVEL 27 MEQ/L (21-32); CHLORIDE LEVEL 109 MEQ/L (98-107); CHOLESTEROL LEVEL 140 MG/DL (<200); CHOLESTEROL RISK RATIO 2.372 (<5); CPK CREATINE PHOSPHOKINASE 30 U/L (26-192); CREATININE FOR GFR 0.62 MG/DL (0.55-1.30); GLOMERULAR FILTRATION RATE > 60.0 (>60); GLUCOSE, FASTING 114 MG/DL (70-100); HDL CHOLESTEROL 59 MG/DL (>40); LDL CHOLESTEROL 50 MG/DL (<100); NON-HDL-C 81 MG/DL; POTASSIUM SERUM 4.3 MEQ/L (3.5-5.1); SODIUM LEVEL 140 MEQ/L (136-145); TOTAL PROTEIN 6.5 GM/DL (6.4-8.2); TRIGLYCERIDES LEVEL 153 MG/DL (<150)
== END ==
LOC: M LAB 16:23
PROVIDERS: ATTEND Physician Assistant
DX: K85.90 Acute pancreatitis without necrosis or infection, unspecified (principal)

== ENCOUNTER → 2021-05-15 | Outpatient (CLI) | payer OTHER ==
[~2021-05-15] MED LIST changes: -IBUP200T45 PO; +IBUP200T46 PO
--- NOTE | 2021-05-15 16:20 | REP ---
INDICATION: PAIN. COMPARISON: None. TECHNIQUE: Four views FINDINGS: Timely curvilinear flake like radiodensities are seen distal to the distal fibular tip. The mortise is intact. IMPRESSION: Possible tiny distal fibular avulsion fracture. <Electronically signed by Ernesto Carpio > 05/15/21 [id number]
--- NOTE | 2021-05-15 16:22 | REP ---
INDICATION: CONTUSION. COMPARISON: None. TECHNIQUE: Upright water's and 2 lateral views FINDINGS: There is a tiny inferior depression of the distal tip of the nasal bone seen on both lateral views with no associated soft tissue swelling. The finding likely represents an old fracture. There is no definite acute fracture. The nasal maxillary spine is within normal limits. There are no abnormal paranasal sinus air-fluid levels on the upright Arredondo view. IMPRESSION: As above <Electronically signed by Ernesto Carpio > 05/15/21 [id number]
== END ==
LOC: M WUC 11:45
PROVIDERS: ATTEND Physician Assistant
DX: S00.33XA Contusion of nose, initial encounter (principal); M25.572 Pain in left ankle and joints of left foot; X58.XXXA Exposure to other specified factors, initial encounter; Y92.9 Unspecified place or not applicable

== ENCOUNTER → 2021-05-16 | Outpatient (CLI) | payer OTHER ==
--- NOTE | 2021-05-16 15:25 | REP ---
INDICATION: PAIN IN LEFT ANKLE AND JOINTS OF LEFT FOOT-HAS LABS AFTER XR. COMPARISON: 05/15/2021 TECHNIQUE: Four views FINDINGS: The tiny curvilinear densities seen distal to the distal fibular tip are unchanged. No acute osseous abnormality has developed since the examination obtained yesterday. IMPRESSION: No change from yesterday. <Electronically signed by Ernesto Carpio > 05/16/21 1993
--- NOTE | 2021-05-16 15:26 | REP ---
INDICATION: PAIN IN LEFT ANKLE AND JOINTS OF LEFT FOOT-HAS LABS AFTER XR. COMPARISON: None. TECHNIQUE: Four views FINDINGS: The joint spaces are symmetric and relatively well maintained. There is no evidence of acute fracture or destructive osseous lesion. IMPRESSION: Negative. <Electronically signed by Ernesto Carpio > 05/16/21 [id number]
[2021-05-16 16:09] LABS: BASO # 0.1 10^3/uL (0.0-0.2); BASO % 0.6 % (0.0-1.0); EOS # 0.1 10^3/uL (0.0-0.5); EOS % 0.6 % (0.0-3.0); HEMATOCRIT 42.1 % (36.0-47.0); LYMPH # 1.5 10^3/uL (1.5-5.0); LYMPH % 13.8 % (24.0-44.0); MEAN CORPUSCULAR HGB CONC 33.3 g/dl (32.0-36.5); MEAN CORPUSCULAR VOLUME 96.3 fl (80.0-96.0); MONO # 0.8 10^3/uL (0.0-0.8); MONO % 7.2 % (2.0-8.0); NEUTROPHILS # 8.4 10^3/uL (1.5-8.5); NEUTROPHILS % 77.4 % (36.0-66.0); PLATELET COUNT, AUTOMATED 334 10^3/uL (150-450); RED BLOOD COUNT 4.37 10^6/uL (4.00-5.40); WHITE BLOOD COUNT 10.9 10^3/uL (4.0-10.0)
[2021-05-16 16:59] LABS: ALBUMIN 1.4 GM/DL (3.2-5.2); ALT/SGPT 21 U/L (12-78); BILIRUBIN,TOTAL 1.3 MG/DL (0.2-1.0); BLOOD UREA NITROGEN 16 MG/DL (7-18); CALCIUM LEVEL 9.6 MG/DL (8.5-10.1); CARBON DIOXIDE LEVEL 30 MEQ/L (21-32); CHLORIDE LEVEL 100 MEQ/L (98-107); CREATININE FOR GFR 0.81 MG/DL (0.55-1.30); GLOMERULAR FILTRATION RATE > 60.0 (>60); GLUCOSE, FASTING 116 MG/DL (70-100); POTASSIUM SERUM 4.4 MEQ/L (3.5-5.1); SODIUM LEVEL 135 MEQ/L (136-145)
== END ==
LOC: M LAB 14:40
PROVIDERS: ATTEND Physician Assistant
DX: M25.572 Pain in left ankle and joints of left foot (principal); I10 Essential (primary) hypertension

== ENCOUNTER → 2021-05-24 | Outpatient (CLI) | payer OTHER ==
[~2021-05-24] MED LIST changes: +VALS80TA
== END ==
LOC: M LABSMTC 09:58
PROVIDERS: ATTEND Anesthesiology
DX: Z01.812 Encounter for preprocedural laboratory examination (principal); Z20.822 Contact with and (suspected) exposure to COVID-19

== ENCOUNTER 2021-05-28 08:00 | Day surgery (SDC) | payer OTHER ==
[~2021-05-28] VITALS: Ht 157.5 cm; Wt 70.8 kg
[~2021-05-28 08:00] MED LIST changes: +LIDOCAINE 1% MDV 20ML VIAL SQ PRN; +LR 1,000 ML IV ONE
[2021-05-28] MEDS ORDERED: LIDOCAINE W/EPINEPHRINE 1% 20ML VIAL As Ordered ONE (08:48)
[2021-05-28] MEDS ORDERED: EPINEPHrine 1MG/ML INJ 30ML MD-VIAL As Ordered ONE (08:48)
[2021-05-28] MEDS ORDERED: METHYLENE BLUE 0.5% (5MG/ML) 10 ML AMP (PROVAYBLUE) As Ordered ONE (08:48)
[2021-05-28] MEDS ORDERED: propofoL 200 MG/20 ML VIAL As Ordered ONE (09:11)
[2021-05-28] MEDS ORDERED: fentaNYL 100 MCG/2 ML INJECTION (J3010) As Ordered ONE (09:12)
[2021-05-28] MEDS ORDERED: LIDOCAINE 2% 100MG/5ML SDV (FOR ANES.) As Ordered ONE (09:12)
[2021-05-28] MEDS ORDERED: dexameTHASONE 4 MG/ML 1ML VIAL (J1100 PER 1MG) As Ordered ONE (09:12)
[2021-05-28] MEDS ORDERED: MIDAZOLAM INJ 2MG/2ML VIAL (J2250 PER 1MG) As Ordered ONE (09:12)
[2021-05-28] MEDS ORDERED: ONDANSETRON 4MG/2ML VIAL As Ordered ONE (09:12)
[2021-05-28] MEDS ORDERED: ROCURONIUM BROMIDE 50 MG/5 ML VIAL As Ordered ONE (09:12)
[2021-05-28] MEDS ORDERED: SUGAMMADEX SODIUM 500 MG/5 ML VIAL (BRIDION) As Ordered ONE ×2 (09:13→15:42)
[2021-05-28] MEDS ORDERED: ACETAMINOPHEN 1000MG 100ML IV BTL (OFIRMEV) (J0131 PER 10MG) As Ordered ONE ×2 (10:08→15:38)
[2021-05-28] MEDS ORDERED: METOCLOPRAMIDE INJ 10MG/2ML VIAL (J2765 PER 1) As Ordered ONE (10:21)
[2021-05-28] MEDS ORDERED: fentaNYL 100 MCG/2 ML INJECTION (J3010) IV PRN (10:55)
[2021-05-28] MEDS ORDERED: ONDANSETRON 4MG/2ML VIAL IV PRN (10:55)
[2021-05-28] MEDS ORDERED: oxyCODONE 5MG TAB PO PRN (10:55)
[2021-05-28] MEDS ORDERED: LR 1,000 ML IV SCH ×2 (10:55→11:05)
[2021-05-28 11:10] VITALS: BP 131/80
--- NOTE | 2021-05-28 15:20 | RO ---
OPERATIVE NOTE DATE OF OPERATION: 05/28/2021 PREOPERATIVE DIAGNOSIS: Nasal fracture. POSTOPERATIVE DIAGNOSIS: Nasal fracture. PROCEDURE: Closed reduction of nasal fracture. SURGEON: DORA SOUTH MD DESCRIPTION OF PROCEDURE: Under general anesthesia with the patient intubated, patient was draped in the usual manner. I used pledgets of adrenaline 1:100,000. I put the nasal elevator in the right side of the nose and pushed the right nasal bone laterally. It popped into place. There was no movement on the left side. Once this was done, then I put on an Aquaplast cast and the patient was transferred to the Recovery Room in excellent condition.
== END 2021-05-28 11:38 | disposition home or self-care (01) ==
LOC: M SDC 08:00
PROVIDERS: ATTEND Otolaryngology
DX: S02.2XXA Fracture of nasal bones, initial encounter for closed fracture (principal); X58.XXXA Exposure to other specified factors, initial encounter; Y92.89 Other specified places as the place of occurrence of the external cause; Y93.9 Activity, unspecified; Y99.9 Unspecified external cause status; I10 Essential (primary) hypertension; G43.909 Migraine, unspecified, not intractable, without status migrainosus; K58.8 Other irritable bowel syndrome; Z79.899 Other long term (current) drug therapy; K21.9 Gastro-esophageal reflux disease without esophagitis
CPT/HCPCS: 21320; J0131; J1100; J2250; J2405; J2765; J3010; Q9968

== ENCOUNTER → 2021-07-15 | Outpatient (REF) | payer OTHER ==
[~2021-07-15] MED LIST changes: -LIDOCAINE 1% MDV 20ML VIAL SQ PRN; -LR 1,000 ML IV ONE
== END ==
LOC: M LAB REF 17:02
PROVIDERS: ATTEND Family Medicine
DX: N39.0 Urinary tract infection, site not specified (principal)

== ENCOUNTER → 2021-10-01 | Outpatient (CLI) | payer OTHER ==
[~2021-10-01] MED LIST changes: +LOSA25TA13 PO; -LOSA25TA14 PO
== END ==
LOC: M PAIN 14:30
PROVIDERS: ATTEND Nurse Practitioner Family
DX: M79.18 Myalgia, other site (principal); G43.909 Migraine, unspecified, not intractable, without status migrainosus; Z88.1 Allergy status to other antibiotic agents; Z88.7 Allergy status to serum and vaccine; Z79.899 Other long term (current) drug therapy

== ENCOUNTER → 2021-10-28 | Outpatient (CLI) | payer OTHER ==
[2021-10-31 00:07] LABS: ANA (HEP2) Negative (.); CYCLIC CITRULLINATED PEPTIDE 2 units (0-19); TISSUE TRANSGLUTAMINASE IgA <2 U/mL (0-3); TISSUE TRANSGLUTAMINASE IgG <2 U/mL (0-5); UNITSIGA FOR GLIADIN IGA 4 units (0-19); UNITSIGG FOR GLIADIN IGG 2 units (0-19)
== END ==
LOC: M WUC 13:41
PROVIDERS: ATTEND Family Medicine
DX: M25.50 Pain in unspecified joint (principal); M79.7 Fibromyalgia

== ENCOUNTER → 2022-03-17 | Outpatient (CLI) | payer OTHER | LOC: M PAIN 11:45 | PROVIDERS: ATTEND Nurse Practitioner Family | DX: M79.18 Myalgia, other site (principal); G89.29 Other chronic pain; G43.909 Migraine, unspecified, not intractable, without status migrainosus; M79.7 Fibromyalgia; Z88.1 Allergy status to other antibiotic agents; Z88.7 Allergy status to serum and vaccine; Z79.899 Other long term (current) drug therapy ==

== ENCOUNTER → 2022-04-03 | Outpatient (CLI) | payer OTHER ==
[~2022-04-03] MED LIST changes: +GASTROGRAFIN SOLUTION 30ML (Q9963) As Ordered ONE; +ISOVUE-370 76% 100ML VIAL As Ordered ONE
[2022-04-03 13:30] LABS: BASO # 0.1 10^3/uL (0.0-0.2); EOS # 0.1 10^3/uL (0.0-0.5); EOS % 1.9 % (0.0-3.0); HEMATOCRIT 44.5 % (36.0-47.0); HEMOGLOBIN 14.5 g/dl (12.0-15.5); LYMPH # 1.4 10^3/uL (1.5-5.0); LYMPH % 23.9 % (24.0-44.0); MEAN CORPUSCULAR HEMOGLOBIN 31.9 pg (27.0-33.0); MEAN CORPUSCULAR HGB CONC 32.6 g/dl (32.0-36.5); MEAN CORPUSCULAR VOLUME 97.8 fl (80.0-96.0); MONO # 0.8 10^3/uL (0.0-0.8); MONO % 14.1 % (2.0-8.0); NEUTROPHILS # 3.4 10^3/uL (1.5-8.5); NEUTROPHILS % 58.4 % (36.0-66.0); PLATELET COUNT, AUTOMATED 389 10^3/uL (150-450); RED BLOOD COUNT 4.55 10^6/uL (4.00-5.40); WHITE BLOOD COUNT 5.9 10^3/uL (4.0-10.0)
[2022-04-03 13:47] LABS: ALBUMIN 3.7 GM/DL (3.2-5.2); ALT/SGPT 43 U/L (12-78); AMYLASE 79 U/L (25-115); BILIRUBIN,DIRECT 0.2 MG/DL (0.0-0.2); BILIRUBIN,TOTAL 0.4 MG/DL (0.2-1.0); BLOOD UREA NITROGEN 5 MG/DL (7-18); CALCIUM LEVEL 9.5 MG/DL (8.5-10.1); CARBON DIOXIDE LEVEL 31 MEQ/L (21-32); CHLORIDE LEVEL 104 MEQ/L (98-107); CREATININE FOR GFR 0.71 MG/DL (0.55-1.30); GLOMERULAR FILTRATION RATE > 60.0 (>60); GLUCOSE, FASTING 103 MG/DL (70-100); LIPASE 388 U/L (73-393); POTASSIUM SERUM 4.5 MEQ/L (3.5-5.1); SODIUM LEVEL 138 MEQ/L (136-145); TOTAL PROTEIN 6.8 GM/DL (6.4-8.2)
== END ==
LOC: M RAD 12:29
PROVIDERS: ATTEND Physician Assistant
DX: K76.0 Fatty (change of) liver, not elsewhere classified (principal); K85.90 Acute pancreatitis without necrosis or infection, unspecified
CPT/HCPCS: 36415; 74177; 80048; 80076; 82150; 83605; 83690; 85025; Q9963; Q9967

== ENCOUNTER → 2022-04-07 | Outpatient (CLI) | payer OTHER ==
[~2022-04-07] MED LIST changes: -GASTROGRAFIN SOLUTION 30ML (Q9963) As Ordered ONE; -ISOVUE-370 76% 100ML VIAL As Ordered ONE
[2022-04-07 17:21] LABS: BASO # 0.1 10^3/uL (0.0-0.2); BASO % 1.1 % (0.0-1.0); EOS # 0.1 10^3/uL (0.0-0.5); EOS % 1.7 % (0.0-3.0); HEMATOCRIT 42.3 % (36.0-47.0); HEMOGLOBIN 13.1 g/dl (12.0-15.5); LYMPH # 1.7 10^3/uL (1.5-5.0); LYMPH % 19.8 % (24.0-44.0); MEAN CORPUSCULAR HEMOGLOBIN 31.6 pg (27.0-33.0); MEAN CORPUSCULAR VOLUME 101.9 fl (80.0-96.0); MONO # 0.7 10^3/uL (0.0-0.8); MONO % 8.5 % (2.0-8.0); NEUTROPHILS # 5.8 10^3/uL (1.5-8.5); NEUTROPHILS % 68.5 % (36.0-66.0); PLATELET COUNT, AUTOMATED 492 10^3/uL (150-450); RED BLOOD COUNT 4.15 10^6/uL (4.00-5.40); WHITE BLOOD COUNT 8.5 10^3/uL (4.0-10.0)
[2022-04-07 17:31] LABS: ALBUMIN 3.4 GM/DL (3.2-5.2); ALT/SGPT 27 U/L (12-78); BILIRUBIN,DIRECT 0.1 MG/DL (0.0-0.2); BILIRUBIN,TOTAL 0.3 MG/DL (0.2-1.0); BLOOD UREA NITROGEN 5 MG/DL (7-18); CALCIUM LEVEL 9.2 MG/DL (8.5-10.1); CARBON DIOXIDE LEVEL 30 MEQ/L (21-32); CHLORIDE LEVEL 106 MEQ/L (98-107); CREATININE FOR GFR 0.66 MG/DL (0.55-1.30); GLOMERULAR FILTRATION RATE > 60.0 (>60); GLUCOSE, FASTING 99 MG/DL (70-100); LIPASE 114 U/L (73-393); POTASSIUM SERUM 4.2 MEQ/L (3.5-5.1); SODIUM LEVEL 140 MEQ/L (136-145); TOTAL PROTEIN 6.5 GM/DL (6.4-8.2)
== END ==
LOC: M WUC 11:04
PROVIDERS: ATTEND Physician Assistant
DX: K86.1 Other chronic pancreatitis (principal)

== ENCOUNTER → 2022-04-30 | Outpatient (CLI) | payer OTHER ==
[~2022-04-30] MED LIST changes: +GASTROGRAFIN SOLUTION 30ML (Q9963) As Ordered ONE; +ISOVUE-370 76% 100ML VIAL As Ordered ONE; +ONDA-83; +POTA-151 PO; +RIZA10TA2
[2022-04-30 16:16] LABS: BASO # 0.1 10^3/uL (0.0-0.2); BASO % 0.9 % (0.0-1.0); EOS # 0.2 10^3/uL (0.0-0.5); HEMATOCRIT 42.2 % (36.0-47.0); HEMOGLOBIN 14.4 g/dl (12.0-15.5); LYMPH % 25.8 % (24.0-44.0); MEAN CORPUSCULAR HEMOGLOBIN 32.3 pg (27.0-33.0); MEAN CORPUSCULAR HGB CONC 34.1 g/dl (32.0-36.5); MEAN CORPUSCULAR VOLUME 94.6 fl (80.0-96.0); MONO # 0.8 10^3/uL (0.0-0.8); MONO % 7.1 % (2.0-8.0); NEUTROPHILS # 7.3 10^3/uL (1.5-8.5); NEUTROPHILS % 63.9 % (36.0-66.0); PLATELET COUNT, AUTOMATED 144 10^3/uL (150-450); RED BLOOD COUNT 4.46 10^6/uL (4.00-5.40); WHITE BLOOD COUNT 11.4 10^3/uL (4.0-10.0)
[2022-04-30 16:51] LABS: ALBUMIN 4.1 GM/DL (3.2-5.2); ALT/SGPT 31 U/L (12-78); BILIRUBIN,DIRECT 0.3 MG/DL (0.0-0.2); BILIRUBIN,TOTAL 0.8 MG/DL (0.2-1.0); BLOOD UREA NITROGEN 18 MG/DL (7-18); CALCIUM LEVEL 9.7 MG/DL (8.5-10.1); CARBON DIOXIDE LEVEL 26 MEQ/L (21-32); CHLORIDE LEVEL 97 MEQ/L (98-107); CHOLESTEROL LEVEL 189 MG/DL (<200); CHOLESTEROL RISK RATIO 1.536 (<5); CREATININE FOR GFR 0.85 MG/DL (0.55-1.30); ETHYL ALCOHOL (ETHANOL) 0.005 % (0.000-0.010); GLOMERULAR FILTRATION RATE > 60.0 (>60); GLUCOSE, FASTING 87 MG/DL (70-100); HDL CHOLESTEROL 123 MG/DL (>40); LDL CHOLESTEROL 42 MG/DL (<100); LIPASE 664 U/L (73-393); NON-HDL-C 66 MG/DL; POTASSIUM SERUM 3.1 MEQ/L (3.5-5.1); SODIUM LEVEL 133 MEQ/L (136-145); TOTAL PROTEIN 7.5 GM/DL (6.4-8.2); TRIGLYCERIDES LEVEL 122 MG/DL (<150)
== END ==
LOC: M RAD 15:50
PROVIDERS: ATTEND Physician Assistant
DX: R10.817 Generalized abdominal tenderness (principal); R30.0 Dysuria; K86.1 Other chronic pancreatitis; M51.37 Other intervertebral disc degeneration, lumbosacral region
CPT/HCPCS: 36415; 74177; 80048; 80061; 80076; 82077; 82977; 83605; 83690; 85025; 86140; 87086; Q9963; Q9967

== ENCOUNTER 2022-05-01 10:04 | Emergency (ER) | payer OTHER ==
[~2022-05-01] VITALS: Ht 157.5 cm; Wt 61.6 kg
[~2022-05-01 10:04] MED LIST changes: -GASTROGRAFIN SOLUTION 30ML (Q9963) As Ordered ONE; -ISOVUE-370 76% 100ML VIAL As Ordered ONE; -ONDA-83; -POTA-151 PO; -RIZA10TA2
[2022-05-01] MEDS ORDERED: ONDA-83 (10:25)
[2022-05-01] MEDS ORDERED: RIZA10TA2 (10:25)
[2022-05-01 12:32] LABS: BASO # 0.1 10^3/uL (0.0-0.2); BASO % 0.8 % (0.0-1.0); EOS # 0.3 10^3/uL (0.0-0.5); EOS % 2.9 % (0.0-3.0); HEMATOCRIT 40.6 % (36.0-47.0); HEMOGLOBIN 13.9 g/dl (12.0-15.5); LYMPH # 2.2 10^3/uL (1.5-5.0); LYMPH % 23.3 % (24.0-44.0); MEAN CORPUSCULAR HGB CONC 34.2 g/dl (32.0-36.5); MEAN CORPUSCULAR VOLUME 93.5 fl (80.0-96.0); MONO # 0.8 10^3/uL (0.0-0.8); MONO % 8.1 % (2.0-8.0); NEUTROPHILS # 6.2 10^3/uL (1.5-8.5); NEUTROPHILS % 64.3 % (36.0-66.0); PLATELET COUNT, AUTOMATED 156 10^3/uL (150-450); RED BLOOD COUNT 4.34 10^6/uL (4.00-5.40); WHITE BLOOD COUNT 9.6 10^3/uL (4.0-10.0)
[2022-05-01 13:29] LABS: HCG, SERUM QUALITATIVE NEGATIVE (NEGATIVE)
[2022-05-01 13:38] LABS: ALBUMIN 4.2 GM/DL (3.2-5.2); ALT/SGPT 33 U/L (12-78); BILIRUBIN,DIRECT 0.2 MG/DL (0.0-0.2); BILIRUBIN,TOTAL 0.6 MG/DL (0.2-1.0); BLOOD UREA NITROGEN 15 MG/DL (7-18); CALCIUM LEVEL 9.6 MG/DL (8.5-10.1); CARBON DIOXIDE LEVEL 25 MEQ/L (21-32); CHLORIDE LEVEL 98 MEQ/L (98-107); CREATININE FOR GFR 0.86 MG/DL (0.55-1.30); GLOMERULAR FILTRATION RATE > 60.0 (>60); GLUCOSE, FASTING 124 MG/DL (70-100); LIPASE 295 U/L (73-393); POTASSIUM SERUM 2.7 MEQ/L (3.5-5.1); SODIUM LEVEL 134 MEQ/L (136-145); TOTAL PROTEIN 7.7 GM/DL (6.4-8.2)
[2022-05-01] MEDS ORDERED: ONDANSETRON 4MG 2ML VIAL IV ONE (13:45)
[2022-05-01] MEDS ORDERED: MORPHINE 4 MG/ML 1ML VIAL/SYRINGE IV ONE (13:45)
[2022-05-01] MEDS ORDERED: POTASSIUM CHLORIDE 10MEQ SR TABLET PO ONE (13:45)
[2022-05-01] MEDS ORDERED: NS 1,000 ML IV ONE (13:45)
[2022-05-01] MEDS ORDERED: KCL 10MEQ/100ML SWI (KRUN) 10 MEQ in IV 1 EA IV ONE (14:00)
[2022-05-01] MEDS ORDERED: POTA-151 PO (18:02)
[2022-05-01 18:31] VITALS: BP 132/95
== END 2022-05-01 18:35 | disposition home or self-care (01) ==
LOC: M ED 11:41
DX: R74.8 Abnormal levels of other serum enzymes (principal); E87.6 Hypokalemia; I10 Essential (primary) hypertension; K21.9 Gastro-esophageal reflux disease without esophagitis; Z87.442 Personal history of urinary calculi; Z87.19 Personal history of other diseases of the digestive system; Z79.899 Other long term (current) drug therapy; Z88.1 Allergy status to other antibiotic agents; Z88.6 Allergy status to analgesic agent
CPT/HCPCS: 80047; 80048; 80076; 83690; 84703; 85025; 87635; 96361; 96365; 96375; 99284; J2270; J2405

== ENCOUNTER → 2022-05-25 | Outpatient (CLI) | payer OTHER ==
[~2022-05-25] MED LIST changes: +ONDA-83; +POTA-151 PO; +RIZA10TA2
[2022-05-25 14:59] LABS: BASO # 0.1 10^3/uL (0.0-0.2); BASO % 0.8 % (0.0-1.0); EOS # 0.1 10^3/uL (0.0-0.5); HEMATOCRIT 47.5 % (36.0-47.0); HEMOGLOBIN 15.4 g/dl (12.0-15.5); LYMPH # 1.2 10^3/uL (1.5-5.0); LYMPH % 16.6 % (24.0-44.0); MEAN CORPUSCULAR HEMOGLOBIN 31.6 pg (27.0-33.0); MEAN CORPUSCULAR HGB CONC 32.4 g/dl (32.0-36.5); MEAN CORPUSCULAR VOLUME 97.3 fl (80.0-96.0); MONO # 0.5 10^3/uL (0.0-0.8); MONO % 7.3 % (2.0-8.0); NEUTROPHILS # 5.4 10^3/uL (1.5-8.5); NEUTROPHILS % 73.5 % (36.0-66.0); PLATELET COUNT, AUTOMATED 179 10^3/uL (150-450); RED BLOOD COUNT 4.88 10^6/uL (4.00-5.40); WHITE BLOOD COUNT 7.3 10^3/uL (4.0-10.0)
[2022-05-25 15:44] LABS: ALBUMIN 4.2 GM/DL (3.2-5.2); ALT/SGPT 33 U/L (12-78); AMYLASE 76 U/L (25-115); BILIRUBIN,TOTAL 0.9 MG/DL (0.2-1.0); BLOOD UREA NITROGEN 10 MG/DL (7-18); CALCIUM LEVEL 10.2 MG/DL (8.5-10.1); CARBON DIOXIDE LEVEL 28 MEQ/L (21-32); CHLORIDE LEVEL 97 MEQ/L (98-107); CHOLESTEROL LEVEL 233 MG/DL (<200); CHOLESTEROL RISK RATIO 1.412 (<5); CREATININE FOR GFR 0.74 MG/DL (0.55-1.30); GLOMERULAR FILTRATION RATE > 60.0 (>60); GLUCOSE, FASTING 125 MG/DL (70-100); HDL CHOLESTEROL 165 MG/DL (>40); NON-HDL-C 68 MG/DL; POTASSIUM SERUM 3.7 MEQ/L (3.5-5.1); SODIUM LEVEL 132 MEQ/L (136-145); TOTAL PROTEIN 7.9 GM/DL (6.4-8.2); TRIGLYCERIDES LEVEL 174 MG/DL (<150)
[2022-05-25 15:48] LABS: LDL CHOLESTEROL 33.2 MG/DL (<100)
[2022-05-26 13:59] LABS: LIPASE 477 U/L (73-393)
== END ==
LOC: M LAB 14:11
PROVIDERS: ATTEND Family Medicine
DX: K86.1 Other chronic pancreatitis (principal)

== ENCOUNTER → 2022-05-25 | Outpatient (CLI) | payer OTHER ==
[2022-05-25 15:44] LABS: CHOLESTEROL RISK RATIO 1.422 (<5)
== END ==
LOC: M LAB 14:15
PROVIDERS: ATTEND Internal Medicine Gastroenterology
DX: K85.90 Acute pancreatitis without necrosis or infection, unspecified (principal)

== ENCOUNTER 2022-08-23 21:26 | Inpatient (IN) | payer OTHER ==
[~2022-08-23] VITALS: Ht 157.5 cm; Wt 67.9 kg
[~2022-08-23 21:26] MED LIST changes: -ONDA-83; +ONDA-83 PO; -RIZA10TA2; +RIZA10TA2 PO
[2022-08-23] MEDS ORDERED: NS 1,000 ML IV ONE (21:55)
[2022-08-23 22:06] LABS: HEMATOCRIT 42.7 % (36.0-47.0); HEMOGLOBIN 14.5 g/dl (12.0-15.5); MEAN CORPUSCULAR HEMOGLOBIN 33.3 pg (27.0-33.0); MEAN CORPUSCULAR VOLUME 98.2 fl (80.0-96.0); PLATELET COUNT, AUTOMATED 216 10^3/uL (150-450); RED BLOOD COUNT 4.35 10^6/uL (4.00-5.40)
[2022-08-23] MEDS ORDERED: LORazepam 2 MG/ML 1ML VIAL IV STA ×2 (22:09→23:32)
[2022-08-23 22:16] LABS: HCG, SERUM QUALITATIVE NEGATIVE (NEGATIVE)
[2022-08-23 22:22] LABS: ETHYL ALCOHOL (ETHANOL) 0.003 % (0.000-0.010); LIPASE 23 U/L (12-53)
[2022-08-23 22:23] LABS: INR 0.97; PROTHROMBIN TIME 13.1 SECONDS (12.5-14.5)
[2022-08-23 22:24] LABS: ACETAMINOPHEN LEVEL < 2.0 UG/ML (10.0-20.0); ALBUMIN 4.1 G/DL (3.2-5.2); ALKALINE PHOSPHATASE 82 U/L (46-116); ALT/SGPT 21 U/L (7.0-40); AST/SGOT 82 U/L (<34); BILIRUBIN,TOTAL 0.4 MG/DL (0.3-1.2); BLOOD UREA NITROGEN 14 MG/DL (9-23); CARBON DIOXIDE LEVEL 23 MMOL/L (20-31); CHLORIDE LEVEL 105 MMOL/L (98-107); GLOMERULAR FILTRATION RATE > 60.0 (>60); GLUCOSE, FASTING 137 MG/DL (60-100); PARTIAL THROMBOPLASTIN TIME 28.6 SECONDS (24.8-34.2); POTASSIUM SERUM 3.2 MMOL/L (3.5-5.1); SALICYLATE LEVEL < 3.0 MG/DL (<30); SODIUM LEVEL 143 MMOL/L (136-145); TOTAL PROTEIN 7.3 G/DL (5.7-8.2)
[2022-08-23] MEDS ORDERED: MULTIVITAMIN -ADULT INJECTION 10 ML, THIAMINE INJection 100 MG, FOLIC ACID 1 MG in NS 1... IV ONE (23:35)
[2022-08-23] MEDS ORDERED: NS 1,770 ML in IV 1 EA IV ONE (23:35)
[2022-08-24] VITALS (58 sets, daily range): BP systolic 120–151; BP diastolic 64–96
[2022-08-24 00:43] LABS: AMPHETAMINES LEVEL URINE NEGATIVE (NEGATIVE); BARBITURATES URINE NEGATIVE (NEGATIVE); BENZODIAZEPINES URINE NEGATIVE (NEGATIVE); COCAINE METABOLITE URINE NEGATIVE (NEGATIVE)
[2022-08-24 00:44] LABS: CANNABINOIDS URINE NEGATIVE (NEGATIVE); METHADONE URINE NEGATIVE (NEGATIVE); OPIATES URINE NEGATIVE (NEGATIVE); PHENCYCLIDINE URINE NEGATIVE (NEGATIVE)
[2022-08-24 00:53] LABS: RSV AMPLIFICATION NEGATIVE (NEGATIVE)
[2022-08-24] MEDS ORDERED: LORazepam 2 MG/ML 1ML VIAL IV STA ×3 (00:55→01:54)
[2022-08-24] MEDS ORDERED: levETIRAcetam INJection 1,000 MG in D5W 100 ML IV ONE (00:55)
[2022-08-24 01:00] LABS: BASO % 0.3 % (0.0-1.0); LYMPH # 0.8 10^3/uL (1.5-5.0); LYMPH % 6.8 % (24.0-44.0); MONO # 0.5 10^3/uL (0.0-0.8); NEUTROPHILS # 10.6 10^3/uL (1.5-8.5); NEUTROPHILS % 88.2 % (36.0-66.0)
[2022-08-24] MEDS ORDERED: TRAM50TA2 PO (01:03)
[2022-08-24] MEDS ORDERED: BUPR150T12 PO (01:03)
[2022-08-24] MEDS ORDERED: ALPR0.25 PO (01:03)
[2022-08-24] MEDS ORDERED: HYDR-643 PO (01:03)
[2022-08-24] MEDS ORDERED: OMEP-173 PO (01:03)
[2022-08-24] MEDS ORDERED: med rec comment (01:04)
[2022-08-24] MEDS ORDERED: HOME MED LIST COMPLETE! XX SCH (01:05)
[2022-08-24] MEDS ORDERED: MIDAZOLAM 100MG/100ML-0.9%NACL 100 MG in IV 1 EA IV SCH ×2 (02:30→09:04)
[2022-08-24] MEDS ORDERED: ETOMIDATE INJ 20MG/10ML VIAL IV ONE (02:30)
[2022-08-24] MEDS ORDERED: propofoL 1,000 MG in IV 1 EA IV SCH ×2 (02:30→09:04)
[2022-08-24] MEDS ORDERED: ROCURONIUM BROMIDE 50MG/5ML VIAL IV ONE (02:30)
[2022-08-24] MEDS: MIDAZOLAM 100MG/100ML-0.9%NACL 100 MG in IV 1 EA IV SCH ×2 (03:00→17:24)
[2022-08-24] MEDS ORDERED: LR 1,000 ML IV SCH (04:20)
[2022-08-24 04:33] LABS: ABG BASE EXCESS -3.6 (-2.0-2.0); ABG HCO3 20.4 MEQ/L (22.0-26.0); ABG O2 SATURATION 95.3 % (95.0-99.0); ABG PARTIAL PRESSURE CO2 33.7 mmHg (35.0-45.0); ABG PARTIAL PRESSURE O2 84.8 mmHg (75.0-100.0); ABG STANDARD HCO3 21.4 MEQ/L (22.0-26.0); ABG TOTAL CO2 21.4 MEQ/L (22.0-29.0); ABG pH (ARTERIAL) 7.399 UNITS (7.350-7.450)
[2022-08-24] MEDS ORDERED: THIAMINE 100 MG TAB PO SCH (05:00)
[2022-08-24] MEDS: HEPARIN SOD (PORCINE) 5000UNITS/ML 1ML VIAL/SYRINGE SC SCH ×3 (05:48→21:14)
[2022-08-24] MEDS: PIPERACILLIN/TAZOBACTAM SOD 4.5 GM in D5W MINI-BAG PLUS 50 ML IV SCH ×4 (05:54→22:13)
[2022-08-24 05:57] LABS: HEMATOCRIT 37.8 % (36.0-47.0); MEAN CORPUSCULAR HEMOGLOBIN 33.7 pg (27.0-33.0); MEAN CORPUSCULAR HGB CONC 32.8 g/dl (32.0-36.5); MEAN CORPUSCULAR VOLUME 102.7 fl (80.0-96.0); PLATELET COUNT, AUTOMATED 133 10^3/uL (150-450); RED BLOOD COUNT 3.68 10^6/uL (4.00-5.40)
[2022-08-24 05:59] LABS: INR 1.05; PROTHROMBIN TIME 13.9 SECONDS (12.5-14.5)
[2022-08-24 06:00] LABS: HEMOGLOBIN 12.4 g/dl (12.0-15.5)
[2022-08-24] MEDS: propofoL 1,000 MG in IV 1 EA IV SCH ×7 (06:41→22:14)
[2022-08-24 06:45] LABS: ALKALINE PHOSPHATASE 61 U/L (46-116); ALT/SGPT 20 U/L (7.0-40); AST/SGOT 68 U/L (<34); BILIRUBIN,TOTAL 0.3 MG/DL (0.3-1.2); BLOOD UREA NITROGEN 12 MG/DL (9-23); CALCIUM LEVEL 7.2 MG/DL (8.5-10.1); CARBON DIOXIDE LEVEL 24 MMOL/L (20-31); CHLORIDE LEVEL 111 MMOL/L (98-107); CREATININE FOR GFR 0.49 MG/DL (0.55-1.30); GLOMERULAR FILTRATION RATE > 60.0 (>60); GLUCOSE, FASTING 104 MG/DL (60-100); POTASSIUM SERUM 3.4 MMOL/L (3.5-5.1); SODIUM LEVEL 147 MMOL/L (136-145); TOTAL PROTEIN 5.7 G/DL (5.7-8.2)
[2022-08-24] MEDS ORDERED: KCL 10MEQ/100ML SWI (KRUN) 10 MEQ in IV 1 EA IV ONE (06:50)
[2022-08-24] MEDS ORDERED: D5W/0.9% SODIUM CHLORIDE 1,000 ML IV SCH (07:55)
[2022-08-24] MEDS: KCL 20MEQ IN D5/NS 1000ML 1,000 ML IV SCH ×2 (08:32→17:57)
[2022-08-24] MEDS: KCL 10MEQ/100ML SWI (KRUN) 10 MEQ in IV 1 EA IV SCH ×2 (08:39→10:02)
[2022-08-24 09:00] LABS: D-DIMER QUANT 834.53 ng/ml (<500); PARTIAL THROMBOPLASTIN TIME 31.1 SECONDS (24.8-34.2)
[2022-08-24] MEDS ORDERED: FOLIC ACID 1MG TAB PO SCH (09:00)
[2022-08-24] MEDS ORDERED: MULTIVITAMINS/MINERALS THERAP 1 TAB PO SCH (09:00)
[2022-08-24] MEDS: CHLORHEXIDINE GLUCONATE 0.12 % 15ML UDC (PERIDEX ORAL RINSE) MT SCH ×2 (10:03→21:14)
[2022-08-24] MEDS: PANTOPRAZOLE 40MG VIAL IV SCH (10:03)
[2022-08-24 10:37] LABS: OSMOLALITY SERUM 348 MOSM/KG (275-295)
[2022-08-24] MEDS ORDERED: FOLIC ACID 1 MG in NS 50 ML IV SCH (10:50)
[2022-08-24] MEDS ORDERED: KCL 10MEQ/100ML SWI (KRUN) 10 MEQ in IV 1 EA IV SCH (11:00)
[2022-08-24 12:02] LABS: CPK CREATINE PHOSPHOKINASE 514 U/L (34-145)
[2022-08-24] MEDS ORDERED: REMDESIVIR 200 MG in NS 250 ML IV ONE (13:00)
[2022-08-24 14:14] LABS: BLOOD UREA NITROGEN 10 MG/DL (9-23); CALCIUM LEVEL 7.7 MG/DL (8.5-10.1); CARBON DIOXIDE LEVEL 24 MMOL/L (20-31); CHLORIDE LEVEL 113 MMOL/L (98-107); CREATININE FOR GFR 0.48 MG/DL (0.55-1.30); GLOMERULAR FILTRATION RATE > 60.0 (>60); GLUCOSE, FASTING 132 MG/DL (60-100); POTASSIUM SERUM 3.5 MMOL/L (3.5-5.1); SODIUM LEVEL 146 MMOL/L (136-145)
[2022-08-24] MEDS ORDERED: SODIUM CHLORIDE 0.9% INJ 10 ML SYR IV ONE (15:00)
[2022-08-24 17:39] LABS: ABG BASE EXCESS -1.5 (-2.0-2.0); ABG HCO3 21.2 MEQ/L (22.0-26.0); ABG O2 SATURATION 96.3 % (95.0-99.0); ABG PARTIAL PRESSURE CO2 29.9 mmHg (35.0-45.0); ABG PARTIAL PRESSURE O2 80.7 mmHg (75.0-100.0); ABG STANDARD HCO3 23.2 MEQ/L (22.0-26.0); ABG TOTAL CO2 22.1 MEQ/L (22.0-29.0); ABG pH (ARTERIAL) 7.468 UNITS (7.350-7.450)
[2022-08-24] MEDS: MIDAZOLAM INJ 2MG/2ML VIAL IV PRN ×2 (17:57→19:19)
[2022-08-24] MEDS ORDERED: fentaNYL 100 MCG/2 ML INJECTION IV ONE (18:00)
[2022-08-24 21:53] LABS: BLOOD UREA NITROGEN 7 MG/DL (9-23); CALCIUM LEVEL 7.6 MG/DL (8.5-10.1); CARBON DIOXIDE LEVEL 25 MMOL/L (20-31); CHLORIDE LEVEL 112 MMOL/L (98-107); CREATININE FOR GFR 0.47 MG/DL (0.55-1.30); GLOMERULAR FILTRATION RATE > 60.0 (>60); GLUCOSE, FASTING 120 MG/DL (60-100); POTASSIUM SERUM 3.2 MMOL/L (3.5-5.1); SODIUM LEVEL 145 MMOL/L (136-145)
[2022-08-25] VITALS (44 sets, daily range): BP systolic 123–185; BP diastolic 73–118
[2022-08-25] MEDS: MIDAZOLAM INJ 2MG/2ML VIAL IV PRN ×4 (00:58→04:34)
[2022-08-25] MEDS: propofoL 1,000 MG in IV 1 EA IV SCH ×5 (00:58→12:06)
[2022-08-25] MEDS ORDERED: LORazepam 2 MG/ML 1ML VIAL IV STA (03:26)
[2022-08-25] MEDS: fentaNYL 100 MCG/2 ML INJECTION IV PRN ×5 (03:52→23:56)
[2022-08-25] MEDS: PIPERACILLIN/TAZOBACTAM SOD 4.5 GM in D5W MINI-BAG PLUS 50 ML IV SCH ×4 (04:34→22:43)
[2022-08-25 05:03] LABS: BASO # 0.1 10^3/uL (0.0-0.2); BASO % 0.7 % (0.0-1.0); EOS % 0.2 % (0.0-3.0); HEMATOCRIT 34.8 % (36.0-47.0); HEMOGLOBIN 11.3 g/dl (12.0-15.5); MEAN CORPUSCULAR HEMOGLOBIN 33.1 pg (27.0-33.0); MEAN CORPUSCULAR HGB CONC 32.5 g/dl (32.0-36.5); MEAN CORPUSCULAR VOLUME 102.1 fl (80.0-96.0); MONO # 0.4 10^3/uL (0.0-0.8); MONO % 4.3 % (2.0-8.0); NEUTROPHILS # 6.4 10^3/uL (1.5-8.5); NEUTROPHILS % 72.2 % (36.0-66.0); PLATELET COUNT, AUTOMATED 127 10^3/uL (150-450); RED BLOOD COUNT 3.41 10^6/uL (4.00-5.40); WHITE BLOOD COUNT 8.9 10^3/uL (4.0-10.0)
[2022-08-25 05:22] LABS: ERYTHROCYTE SEDIMENTATION RATE 11 mm/hr (0-20)
[2022-08-25 05:34] LABS: BLOOD UREA NITROGEN 6 MG/DL (9-23); CARBON DIOXIDE LEVEL 25 MMOL/L (20-31); CHLORIDE LEVEL 112 MMOL/L (98-107); CREATININE FOR GFR 0.52 MG/DL (0.55-1.30); FREE T4 0.71 NG/DL (0.89-1.76); GLOMERULAR FILTRATION RATE > 60.0 (>60); GLUCOSE, FASTING 96 MG/DL (60-100); MAGNESIUM LEVEL 1.8 MG/DL (1.8-2.4); POTASSIUM SERUM 3.3 MMOL/L (3.5-5.1); SODIUM LEVEL 147 MMOL/L (136-145); THYROID STIMULATING HORMONE 2.961 uIU/ML (0.55-4.78)
[2022-08-25 05:35] LABS: RHEUMATOID FACTOR QUANT < 3.5 IU/ML (<14)
[2022-08-25 05:43] LABS: ABG BASE EXCESS 0.5 (-2.0-2.0); ABG HCO3 23.6 MEQ/L (22.0-26.0); ABG O2 SATURATION 98.7 % (95.0-99.0); ABG PARTIAL PRESSURE CO2 32.9 mmHg (35.0-45.0); ABG PARTIAL PRESSURE O2 117.4 mmHg (75.0-100.0); ABG STANDARD HCO3 24.9 MEQ/L (22.0-26.0); ABG TOTAL CO2 24.6 MEQ/L (22.0-29.0); ABG pH (ARTERIAL) 7.473 UNITS (7.350-7.450)
[2022-08-25] MEDS: HEPARIN SOD (PORCINE) 5000UNITS/ML 1ML VIAL/SYRINGE SC SCH ×3 (05:45→21:15)
[2022-08-25 05:55] LABS: CPK CREATINE PHOSPHOKINASE 258 U/L (34-145)
[2022-08-25 05:57] LABS: OSMOLALITY SERUM 331 MOSM/KG (275-295)
[2022-08-25] MEDS: MIDAZOLAM 100MG/100ML-0.9%NACL 100 MG in IV 1 EA IV SCH ×2 (06:10→08:04)
[2022-08-25] MEDS: KCL 10MEQ/100ML SWI (KRUN) 10 MEQ in IV 1 EA IV SCH ×2 (07:54→07:56)
[2022-08-25] MEDS: CHLORHEXIDINE GLUCONATE 0.12 % 15ML UDC (PERIDEX ORAL RINSE) MT SCH (07:55)
[2022-08-25] MEDS: PANTOPRAZOLE 40MG VIAL IV SCH (07:55)
[2022-08-25] MEDS ORDERED: THIAMINE 200MG 2ML VIAL IV SCH (09:00)
[2022-08-25] MEDS ORDERED: MULTIVITAMIN -ADULT INJECTION 10 ML in NS 500 ML IV SCH (09:00)
[2022-08-25] MEDS: MULTIVITAMIN -ADULT INJECTION 10 ML, FOLIC ACID 1 MG, THIAMINE INJection 100 MG in NS 1... IV SCH (09:56)
[2022-08-25] MEDS: dexmedeTOMidine 200 MCG in IV 1 EA IV SCH ×4 (09:56→22:47)
[2022-08-25] MEDS: REMDESIVIR 100 MG in NS 250 ML IV SCH (12:54)
[2022-08-25] MEDS: SODIUM CHLORIDE 0.9% INJ 10 ML SYR IV SCH (14:03)
[2022-08-25 16:57] LABS: POTASSIUM SERUM 3.8 MMOL/L (3.5-5.1)
[2022-08-25] MEDS: LORazepam 2 MG TAB PO PRN ×2 (18:56→19:49)
[2022-08-25] MEDS ORDERED: OXAZEPAM 15MG CAP PO PRN (19:40)
[2022-08-26] VITALS (14 sets, daily range): BP systolic 139–178; BP diastolic 63–103
[2022-08-26] MEDS ORDERED: OXAZEPAM 10MG CAP PO PRN (01:40)
[2022-08-26] MEDS ORDERED: ACETAMINOPHEN TAB 650MG DOSE (2X325MG) PO ONE (04:00)
[2022-08-26] MEDS ORDERED: ACETAMINOPHEN *IV* 500 MG in IV 1 EA IV ONE (04:25)
[2022-08-26 04:36] LABS: BASO # 0.1 10^3/uL (0.0-0.2); BASO % 0.5 % (0.0-1.0); EOS # 0.1 10^3/uL (0.0-0.5); EOS % 0.8 % (0.0-3.0); HEMATOCRIT 35.2 % (36.0-47.0); HEMOGLOBIN 11.5 g/dl (12.0-15.5); LYMPH # 2.4 10^3/uL (1.5-5.0); LYMPH % 23.6 % (24.0-44.0); MEAN CORPUSCULAR HEMOGLOBIN 32.9 pg (27.0-33.0); MEAN CORPUSCULAR HGB CONC 32.7 g/dl (32.0-36.5); MEAN CORPUSCULAR VOLUME 100.6 fl (80.0-96.0); MONO # 0.5 10^3/uL (0.0-0.8); MONO % 4.5 % (2.0-8.0); NEUTROPHILS # 7.2 10^3/uL (1.5-8.5); NEUTROPHILS % 69.9 % (36.0-66.0); PLATELET COUNT, AUTOMATED 122 10^3/uL (150-450); WHITE BLOOD COUNT 10.3 10^3/uL (4.0-10.0)
[2022-08-26 04:43] LABS: INR 0.91; PROTHROMBIN TIME 12.5 SECONDS (12.5-14.5)
[2022-08-26 04:44] LABS: PARTIAL THROMBOPLASTIN TIME 34.9 SECONDS (24.8-34.2)
[2022-08-26 05:06] LABS: LDH LACTATE DEHYDROGENASE 343 U/L (120-246)
[2022-08-26 05:09] LABS: FERRITIN 233.4 NG/ML (7.3-270.7)
[2022-08-26] MEDS: HEPARIN SOD (PORCINE) 5000UNITS/ML 1ML VIAL/SYRINGE SC SCH ×3 (05:09→21:46)
[2022-08-26] MEDS: PIPERACILLIN/TAZOBACTAM SOD 4.5 GM in D5W MINI-BAG PLUS 50 ML IV SCH (05:10)
[2022-08-26 05:44] LABS: ALBUMIN 2.7 G/DL (3.2-5.2); ALKALINE PHOSPHATASE 53 U/L (46-116); ALT/SGPT 23 U/L (7.0-40); AST/SGOT 87 U/L (<34); BILIRUBIN,DIRECT 0.2 MG/DL (<0.4); BILIRUBIN,TOTAL 0.3 MG/DL (0.3-1.2); BLOOD UREA NITROGEN < 5 MG/DL (9-23); CALCIUM LEVEL 8.3 MG/DL (8.5-10.1); CARBON DIOXIDE LEVEL 24 MMOL/L (20-31); CHLORIDE LEVEL 106 MMOL/L (98-107); CPK CREATINE PHOSPHOKINASE 549 U/L (34-145); CREATININE FOR GFR 0.54 MG/DL (0.55-1.30); GLOMERULAR FILTRATION RATE > 60.0 (>60); GLUCOSE, FASTING 95 MG/DL (60-100); MAGNESIUM LEVEL 1.4 MG/DL (1.8-2.4); POTASSIUM SERUM 2.9 MMOL/L (3.5-5.1); SODIUM LEVEL 142 MMOL/L (136-145); TOTAL PROTEIN 5.3 G/DL (5.7-8.2)
[2022-08-26] MEDS ORDERED: ONDANSETRON 4MG 2ML VIAL IV ONE (06:00)
[2022-08-26] MEDS ORDERED: MAG SULF 1GM/100ML (MAG RUN) 1 GM in IV 1 EA IV ONE (06:00)
[2022-08-26] MEDS: LORazepam 2 MG TAB PO PRN ×3 (06:12→20:20)
[2022-08-26] MEDS ORDERED: KCL 10MEQ/100ML SWI (KRUN) 10 MEQ in IV 1 EA IV ONE (07:00)
[2022-08-26] MEDS: MAG SULF 1GM/100ML (MAG RUN) 1 GM in IV 1 EA IV SCH ×2 (07:47→08:14)
[2022-08-26] MEDS: KCL 10MEQ/100ML SWI (KRUN) 10 MEQ in IV 1 EA IV SCH ×2 (07:47→09:33)
[2022-08-26] MEDS: PANTOPRAZOLE 40MG VIAL IV SCH (08:14)
[2022-08-26] MEDS: OXAZEPAM 10MG CAP PO SCH ×3 (08:15→20:19)
[2022-08-26] MEDS: MULTIVITAMIN -ADULT INJECTION 10 ML, FOLIC ACID 1 MG, THIAMINE INJection 100 MG in NS 1... IV SCH (08:18)
[2022-08-26] MEDS: traMADol 50 MG TAB PO PRN ×2 (09:17→17:54)
[2022-08-26] MEDS ORDERED: LOMOTIL 2.5MG/0.025MG TABLET PO ONE (10:00)
[2022-08-26] MEDS ORDERED: LOPERAMIDE 2 MG CAPLET PO PRN (10:00)
[2022-08-26] MEDS: LOPERAMIDE 2 MG CAPLET PO PRN ×4 (10:19→20:28)
[2022-08-26] MEDS: MULTIVITAMINS/MINERALS THERAP 1 TAB PO SCH (10:38)
[2022-08-26] MEDS: FOLIC ACID 1MG TAB PO SCH (10:38)
[2022-08-26] MEDS: THIAMINE 100 MG TAB PO SCH (10:39)
[2022-08-26 12:53] LABS: BLOOD UREA NITROGEN < 5 MG/DL (9-23); CALCIUM LEVEL 8.1 MG/DL (8.5-10.1); CARBON DIOXIDE LEVEL 28 MMOL/L (20-31); CHLORIDE LEVEL 106 MMOL/L (98-107); CREATININE FOR GFR 0.53 MG/DL (0.55-1.30); GLOMERULAR FILTRATION RATE > 60.0 (>60); GLUCOSE, FASTING 122 MG/DL (60-100); POTASSIUM SERUM 2.9 MMOL/L (3.5-5.1); SODIUM LEVEL 143 MMOL/L (136-145)
[2022-08-26] MEDS: REMDESIVIR 100 MG in NS 250 ML IV SCH (13:24)
[2022-08-26] MEDS: POTASSIUM CHLORIDE 10MEQ SR TABLET PO SCH ×3 (13:24→15:26)
[2022-08-26] MEDS: SODIUM CHLORIDE 0.9% INJ 10 ML SYR IV SCH (13:26)
[2022-08-26] MEDS: fentaNYL 100 MCG/2 ML INJECTION IV PRN (13:40)
[2022-08-26] MEDS: ONDANSETRON 4MG 2ML VIAL IV PRN ×2 (14:31→20:20)
[2022-08-26 20:07] LABS: ANA (HEP2) Negative (.)
[2022-08-27] VITALS (13 sets, daily range): BP systolic 117–196; BP diastolic 60–102
[2022-08-27] MEDS: fentaNYL 100 MCG/2 ML INJECTION IV PRN (00:21)
[2022-08-27] MEDS: LORazepam 2 MG TAB PO PRN ×3 (00:21→23:28)
[2022-08-27] MEDS: traMADol 50 MG TAB PO PRN ×2 (03:00→21:25)
[2022-08-27] MEDS: LOPERAMIDE 2 MG CAPLET PO PRN ×2 (03:00→08:31)
[2022-08-27] MEDS: OXAZEPAM 10MG CAP PO SCH ×4 (03:00→20:07)
[2022-08-27 05:10] LABS: BASO # 0.1 10^3/uL (0.0-0.2); BASO % 0.7 % (0.0-1.0); EOS # 0.2 10^3/uL (0.0-0.5); EOS % 2.6 % (0.0-3.0); HEMATOCRIT 39.8 % (36.0-47.0); HEMOGLOBIN 13.2 g/dl (12.0-15.5); LYMPH # 2.9 10^3/uL (1.5-5.0); LYMPH % 33.4 % (24.0-44.0); MEAN CORPUSCULAR HEMOGLOBIN 32.9 pg (27.0-33.0); MEAN CORPUSCULAR HGB CONC 33.2 g/dl (32.0-36.5); MEAN CORPUSCULAR VOLUME 99.3 fl (80.0-96.0); MONO # 0.6 10^3/uL (0.0-0.8); MONO % 6.7 % (2.0-8.0); NEUTROPHILS # 4.8 10^3/uL (1.5-8.5); NEUTROPHILS % 55.9 % (36.0-66.0); PLATELET COUNT, AUTOMATED 145 10^3/uL (150-450); RED BLOOD COUNT 4.01 10^6/uL (4.00-5.40); WHITE BLOOD COUNT 8.5 10^3/uL (4.0-10.0)
[2022-08-27 05:49] LABS: ALBUMIN 3.3 G/DL (3.2-5.2); ALKALINE PHOSPHATASE 66 U/L (46-116); ALT/SGPT 27 U/L (7.0-40); AST/SGOT 83 U/L (<34); BILIRUBIN,TOTAL 0.5 MG/DL (0.3-1.2); BLOOD UREA NITROGEN 6 MG/DL (9-23); CARBON DIOXIDE LEVEL 29 MMOL/L (20-31); CHLORIDE LEVEL 102 MMOL/L (98-107); CREATININE FOR GFR 0.57 MG/DL (0.55-1.30); GLOMERULAR FILTRATION RATE > 60.0 (>60); GLUCOSE, FASTING 95 MG/DL (60-100); MAGNESIUM LEVEL 1.8 MG/DL (1.8-2.4); POTASSIUM SERUM 3.5 MMOL/L (3.5-5.1); SODIUM LEVEL 140 MMOL/L (136-145); TOTAL PROTEIN 6.4 G/DL (5.7-8.2)
[2022-08-27] MEDS ORDERED: HEPARIN SOD (PORCINE) 5000UNITS/ML 1ML VIAL/SYRINGE As Ordered ONE (05:52)
[2022-08-27] MEDS: HEPARIN SOD (PORCINE) 5000UNITS/ML 1ML VIAL/SYRINGE SC SCH ×3 (05:54→21:12)
[2022-08-27] MEDS ORDERED: **hydrALAZINE HCL** 25 MG TAB PO SCH (06:00)
[2022-08-27] MEDS ORDERED: PERCOCET 5MG/325MG TAB PO PRN ×2 (07:45)
[2022-08-27] MEDS ORDERED: HYDROMORPHONE HCL 0.5 MG/ 0.5 ML SYRINGE IV ONE ×2 (08:00→10:00)
[2022-08-27] MEDS ORDERED: ACETAMINOPHEN 500 MG TAB PO ONE (08:00)
[2022-08-27] MEDS: MULTIVITAMINS/MINERALS THERAP 1 TAB PO SCH (08:31)
[2022-08-27] MEDS: PANTOPRAZOLE 40MG TAB (PROTONIX) PO SCH (08:32)
[2022-08-27] MEDS: THIAMINE 100 MG TAB PO SCH (08:32)
[2022-08-27] MEDS: FOLIC ACID 1MG TAB PO SCH (08:32)
[2022-08-27] MEDS ORDERED: ISOSORBIDE DIN. (ISORDIL) 20 MG TAB PO ONE (09:00)
[2022-08-27] MEDS ORDERED: atenoloL 25 MG TAB PO SCH (09:00)
[2022-08-27] MEDS ORDERED: hydrALAZINE 20MG/ML 1ML VIAL IV ONE (09:20)
[2022-08-27] MEDS ORDERED: cloNIDine 0.1MG TABLET PO SCH (12:00)
[2022-08-27] MEDS ORDERED: **hydrALAZINE** 50 MG TAB PO SCH (12:00)
[2022-08-27] MEDS: REMDESIVIR 100 MG in NS 250 ML IV SCH (12:55)
[2022-08-27] MEDS: ONDANSETRON 4MG 2ML VIAL IV PRN (12:57)
[2022-08-27] MEDS: SODIUM CHLORIDE 0.9% INJ 10 ML SYR IV SCH (16:00)
[2022-08-27] MEDS ORDERED: traMADol 50 MG TAB PO SCH (17:00)
[2022-08-27 18:07] LABS: ACETONE 0.174 g/dL (0.000-0.010); ISOPROPANOL <.010 g/dL (0.000-0.010); METHANOL <.010 g/dL (0.000-0.010)
[2022-08-27] MEDS: traMADol 50 MG TAB PO SCH ×2 (18:09→20:10)
[2022-08-28] VITALS (9 sets, daily range): BP systolic 117–168; BP diastolic 72–123
[2022-08-28] MEDS: traMADol 50 MG TAB PO PRN (02:32)
[2022-08-28] MEDS: OXAZEPAM 10MG CAP PO SCH ×4 (02:32→21:02)
[2022-08-28 04:42] LABS: BASO # 0.1 10^3/uL (0.0-0.2); BASO % 0.5 % (0.0-1.0); EOS # 0.3 10^3/uL (0.0-0.5); EOS % 3.2 % (0.0-3.0); HEMATOCRIT 39.4 % (36.0-47.0); HEMOGLOBIN 13.4 g/dl (12.0-15.5); LYMPH # 3.4 10^3/uL (1.5-5.0); LYMPH % 33.4 % (24.0-44.0); MEAN CORPUSCULAR HEMOGLOBIN 33.4 pg (27.0-33.0); MEAN CORPUSCULAR VOLUME 98.3 fl (80.0-96.0); MONO # 0.8 10^3/uL (0.0-0.8); MONO % 7.3 % (2.0-8.0); NEUTROPHILS # 5.6 10^3/uL (1.5-8.5); PLATELET COUNT, AUTOMATED 182 10^3/uL (150-450); RED BLOOD COUNT 4.01 10^6/uL (4.00-5.40); WHITE BLOOD COUNT 10.2 10^3/uL (4.0-10.0)
[2022-08-28 04:53] LABS: INR 0.92; PROTHROMBIN TIME 12.6 SECONDS (12.5-14.5)
[2022-08-28 04:54] LABS: PARTIAL THROMBOPLASTIN TIME 28.6 SECONDS (24.8-34.2)
[2022-08-28 05:07] LABS: FERRITIN 230.8 NG/ML (7.3-270.7)
[2022-08-28] MEDS: LORazepam 2 MG TAB PO PRN (05:08)
[2022-08-28] MEDS: HEPARIN SOD (PORCINE) 5000UNITS/ML 1ML VIAL/SYRINGE SC SCH ×3 (05:09→21:03)
[2022-08-28 05:20] LABS: LDH LACTATE DEHYDROGENASE 271 U/L (120-246)
[2022-08-28 05:24] LABS: ALBUMIN 3.1 G/DL (3.2-5.2); ALKALINE PHOSPHATASE 79 U/L (46-116); ALT/SGPT 33 U/L (7.0-40); AST/SGOT 77 U/L (<34); BILIRUBIN,DIRECT 0.2 MG/DL (<0.4); BILIRUBIN,TOTAL 0.4 MG/DL (0.3-1.2); BLOOD UREA NITROGEN 14 MG/DL (9-23); CALCIUM LEVEL 9.2 MG/DL (8.5-10.1); CARBON DIOXIDE LEVEL 30 MMOL/L (20-31); CHLORIDE LEVEL 100 MMOL/L (98-107); CPK CREATINE PHOSPHOKINASE 58 U/L (34-145); CREATININE FOR GFR 0.64 MG/DL (0.55-1.30); GLOMERULAR FILTRATION RATE > 60.0 (>60); GLUCOSE, FASTING 96 MG/DL (60-100); MAGNESIUM LEVEL 1.8 MG/DL (1.8-2.4); POTASSIUM SERUM 3.4 MMOL/L (3.5-5.1); SODIUM LEVEL 137 MMOL/L (136-145); TOTAL PROTEIN 6.3 G/DL (5.7-8.2)
[2022-08-28] MEDS ORDERED: FIORICET TAB PO PRN (08:35)
[2022-08-28] MEDS ORDERED: FIORICET TAB PO ONE (08:35)
[2022-08-28] MEDS ORDERED: HYDROMORPHONE HCL 0.5 MG/ 0.5 ML SYRINGE IV ONE (08:35)
[2022-08-28] MEDS ORDERED: cloNIDine 0.1MG TABLET PO ONE (08:40)
[2022-08-28] MEDS: PANTOPRAZOLE 40MG TAB (PROTONIX) PO SCH (08:47)
[2022-08-28] MEDS: FOLIC ACID 1MG TAB PO SCH (08:47)
[2022-08-28] MEDS: MULTIVITAMINS/MINERALS THERAP 1 TAB PO SCH (08:47)
[2022-08-28] MEDS: THIAMINE 100 MG TAB PO SCH (08:47)
[2022-08-28] MEDS: traMADol 50 MG TAB PO SCH ×4 (08:50→21:02)
[2022-08-28] MEDS ORDERED: THIA100TA PO (14:24)
[2022-08-28] MEDS ORDERED: PERCOCET PO (14:24)
[2022-08-28] MEDS ORDERED: TRAM50TA2 PO (14:24)
[2022-08-28] MEDS ORDERED: LORA2TA PO (14:24)
[2022-08-28] MEDS ORDERED: FOLI1TAB11 PO (14:24)
[2022-08-28] MEDS ORDERED: VITMTA PO (14:24)
[2022-08-28] MEDS ORDERED: OXAZ10CA3 PO (14:24)
[2022-08-28] MEDS ORDERED: LISI20TA33 PO (14:24)
[2022-08-28] MEDS ORDERED: AMLO10TA PO (14:27)
[2022-08-28] MEDS: PERCOCET 5MG/325MG TAB PO PRN (23:55)
[2022-08-29] MEDS: OXAZEPAM 10MG CAP PO SCH ×3 (03:11→13:54)
[2022-08-29] MEDS: ACETAMINOPHEN TAB 650MG DOSE (2X325MG) PO PRN (03:13)
[2022-08-29 04:00] VITALS: BP 146/98
[2022-08-29] MEDS: HEPARIN SOD (PORCINE) 5000UNITS/ML 1ML VIAL/SYRINGE SC SCH ×3 (05:13→21:47)
[2022-08-29] MEDS: PANTOPRAZOLE 40MG TAB (PROTONIX) PO SCH (09:02)
[2022-08-29] MEDS: MULTIVITAMINS/MINERALS THERAP 1 TAB PO SCH (09:02)
[2022-08-29] MEDS: FOLIC ACID 1MG TAB PO SCH (09:02)
[2022-08-29] MEDS: THIAMINE 100 MG TAB PO SCH (09:03)
[2022-08-29] MEDS: traMADol 50 MG TAB PO SCH ×4 (09:03→21:46)
[2022-08-29 09:24] VITALS: BP 168/92
[2022-08-29 14:00] VITALS: BP 166/98
[2022-08-29] MEDS: ISOSORBIDE DIN. (ISORDIL) 20 MG TAB PO SCH ×2 (14:20→21:56)
[2022-08-29] MEDS ORDERED: ONDANSETRON 4MG ORAL DISINTEGRATING TAB SL PRN (15:35)
[2022-08-29] MEDS: PERCOCET 5MG/325MG TAB PO PRN ×2 (15:47→23:55)
[2022-08-29] MEDS: cloNIDine 0.1MG TABLET PO SCH ×2 (18:00→23:50)
[2022-08-29] MEDS: OXAZEPAM 15MG CAP PO SCH (21:45)
[2022-08-29] MEDS: MIRTAZAPINE 7.5MG PER 1/2 TABLET PO SCH (21:45)
[2022-08-29 22:00] VITALS: BP 152/98
[2022-08-30] MEDS: OXAZEPAM 15MG CAP PO SCH ×4 (03:39→21:00)
[2022-08-30 06:52] LABS: INR 0.88; PROTHROMBIN TIME 12.1 SECONDS (12.5-14.5)
[2022-08-30 06:53] LABS: PARTIAL THROMBOPLASTIN TIME 27.9 SECONDS (24.8-34.2)
[2022-08-30 06:58] VITALS: BP 160/96
[2022-08-30] MEDS: LOPERAMIDE 2 MG CAPLET PO PRN (06:59)
[2022-08-30] MEDS: ISOSORBIDE DIN. (ISORDIL) 20 MG TAB PO SCH (06:59)
[2022-08-30] MEDS: cloNIDine 0.1MG TABLET PO SCH (07:00)
[2022-08-30] MEDS: HEPARIN SOD (PORCINE) 5000UNITS/ML 1ML VIAL/SYRINGE SC SCH ×3 (07:01→22:02)
[2022-08-30 07:07] LABS: LDH LACTATE DEHYDROGENASE 219 U/L (120-246)
[2022-08-30 07:08] LABS: ALBUMIN 3.3 G/DL (3.2-5.2); ALKALINE PHOSPHATASE 65 U/L (46-116); ALT/SGPT 59 U/L (7.0-40); AST/SGOT 102 U/L (<34); BILIRUBIN,DIRECT 0.2 MG/DL (<0.4); BILIRUBIN,TOTAL 0.5 MG/DL (0.3-1.2); CPK CREATINE PHOSPHOKINASE 30 U/L (34-145); TOTAL PROTEIN 6.5 G/DL (5.7-8.2)
[2022-08-30 07:11] LABS: FERRITIN 200.7 NG/ML (7.3-270.7)
[2022-08-30] MEDS ORDERED: lisinopriL 40MG TAB PO ONE (07:30)
[2022-08-30] MEDS ORDERED: POTASSIUM CHLORIDE 10MEQ SR TABLET PO ONE (07:35)
[2022-08-30 08:00] VITALS: BP 130/92
[2022-08-30] MEDS: FOLIC ACID 1MG TAB PO SCH (08:03)
[2022-08-30] MEDS: traMADol 50 MG TAB PO SCH ×4 (08:04→22:00)
[2022-08-30] MEDS: MULTIVITAMINS/MINERALS THERAP 1 TAB PO SCH (08:04)
[2022-08-30 08:05] LABS: BLOOD UREA NITROGEN 9 MG/DL (9-23); CALCIUM LEVEL 9.8 MG/DL (8.5-10.1); CARBON DIOXIDE LEVEL 30 MMOL/L (20-31); CHLORIDE LEVEL 101 MMOL/L (98-107); CREATININE FOR GFR 0.63 MG/DL (0.55-1.30); GLOMERULAR FILTRATION RATE > 60.0 (>60); GLUCOSE, FASTING 92 MG/DL (60-100); POTASSIUM SERUM 3.8 MMOL/L (3.5-5.1); SODIUM LEVEL 140 MMOL/L (136-145)
[2022-08-30] MEDS: PANTOPRAZOLE 40MG TAB (PROTONIX) PO SCH (08:05)
[2022-08-30] MEDS: THIAMINE 100 MG TAB PO SCH (08:05)
[2022-08-30 10:00] VITALS: BP 108/64
[2022-08-30] MEDS: PERCOCET 5MG/325MG TAB PO PRN ×2 (10:38→23:57)
[2022-08-30] MEDS: cloNIDine 0.2 MG TAB PO SCH ×2 (11:48→17:19)
[2022-08-30] MEDS ORDERED: LISI40TA4 PO (13:00)
[2022-08-30] MEDS ORDERED: CLON0.2T PO (13:00)
[2022-08-30 14:00] VITALS: BP 106/67
[2022-08-30] MEDS ORDERED: atenoloL 50 MG TAB PO SCH (21:00)
[2022-08-30 22:00] VITALS: BP_SYST 1; BP_SYST 135; BP_DIAS 98
[2022-08-30] MEDS: MIRTAZAPINE 7.5MG PER 1/2 TABLET PO SCH (22:01)
[2022-08-30 22:03] VITALS: BP 135/77
[2022-08-31] VITALS (8 sets, daily range): BP systolic 119–160; BP diastolic 83–110
[2022-08-31] MEDS: OXAZEPAM 15MG CAP PO SCH ×4 (02:35→22:03)
[2022-08-31] MEDS: HEPARIN SOD (PORCINE) 5000UNITS/ML 1ML VIAL/SYRINGE SC SCH ×3 (05:34→22:05)
[2022-08-31] MEDS: cloNIDine 0.2 MG TAB PO SCH ×2 (05:36)
[2022-08-31] MEDS ORDERED: EXCEDRIN MIGRAINE TABLET PO ONE (07:45)
[2022-08-31] MEDS: MULTIVITAMINS/MINERALS THERAP 1 TAB PO SCH (09:06)
[2022-08-31] MEDS: traMADol 50 MG TAB PO SCH ×4 (09:11→22:03)
[2022-08-31] MEDS: PANTOPRAZOLE 40MG TAB (PROTONIX) PO SCH (09:12)
[2022-08-31] MEDS: FOLIC ACID 1MG TAB PO SCH (09:12)
[2022-08-31] MEDS: THIAMINE 100 MG TAB PO SCH (09:12)
[2022-08-31] MEDS: lisinopriL 40MG TAB PO SCH (09:12)
[2022-08-31] MEDS ORDERED: cloNIDine 0.1MG TABLET PO SCH (12:00)
[2022-08-31] MEDS: cloNIDine 0.1MG TABLET PO SCH ×2 (13:07→18:00)
[2022-08-31] MEDS: PERCOCET 5MG/325MG TAB PO PRN (14:39)
[2022-08-31] MEDS: ISOSORBIDE DIN. (ISORDIL) 20 MG TAB PO SCH (21:00)
[2022-08-31] MEDS: MIRTAZAPINE 7.5MG PER 1/2 TABLET PO SCH (22:02)
[2022-09-01] MEDS: OXAZEPAM 15MG CAP PO SCH ×4 (03:28→21:01)
[2022-09-01] MEDS: HEPARIN SOD (PORCINE) 5000UNITS/ML 1ML VIAL/SYRINGE SC SCH ×3 (06:24→21:02)
[2022-09-01] MEDS: cloNIDine 0.1MG TABLET PO SCH ×5 (06:25→23:52)
[2022-09-01 06:26] VITALS: BP 133/92
[2022-09-01] MEDS: PERCOCET 5MG/325MG TAB PO PRN ×2 (06:30→23:49)
[2022-09-01 08:00] VITALS: BP 124/76
[2022-09-01] MEDS: ISOSORBIDE DIN. (ISORDIL) 20 MG TAB PO SCH ×2 (09:00→21:00)
[2022-09-01] MEDS: lisinopriL 40MG TAB PO SCH (09:00)
[2022-09-01] MEDS: MULTIVITAMINS/MINERALS THERAP 1 TAB PO SCH (09:43)
[2022-09-01] MEDS: THIAMINE 100 MG TAB PO SCH (09:44)
[2022-09-01] MEDS: traMADol 50 MG TAB PO SCH ×4 (09:44→21:01)
[2022-09-01] MEDS: PANTOPRAZOLE 40MG TAB (PROTONIX) PO SCH (09:44)
[2022-09-01] MEDS: FOLIC ACID 1MG TAB PO SCH (09:44)
[2022-09-01 09:52] VITALS: BP 124/76
[2022-09-01 12:49] VITALS: BP 133/92
[2022-09-01] MEDS: ACETAMINOPHEN TAB 650MG DOSE (2X325MG) PO PRN (15:15)
[2022-09-01 18:08] VITALS: BP 131/91
[2022-09-01] MEDS: MIRTAZAPINE 7.5MG PER 1/2 TABLET PO SCH (21:00)
[2022-09-01 22:00] VITALS: BP 130/82
[2022-09-02] MEDS: OXAZEPAM 15MG CAP PO SCH ×4 (02:51→21:16)
[2022-09-02 05:22] VITALS: BP 113/63
[2022-09-02] MEDS: cloNIDine 0.1MG TABLET PO SCH ×4 (05:40→23:57)
[2022-09-02 06:00] VITALS: BP 113/63
[2022-09-02] MEDS: PERCOCET 5MG/325MG TAB PO PRN (06:06)
[2022-09-02] MEDS: HEPARIN SOD (PORCINE) 5000UNITS/ML 1ML VIAL/SYRINGE SC SCH ×3 (06:07→21:11)
[2022-09-02] MEDS: MULTIVITAMINS/MINERALS THERAP 1 TAB PO SCH (08:28)
[2022-09-02] MEDS: ISOSORBIDE DIN. (ISORDIL) 20 MG TAB PO SCH ×2 (08:29→21:15)
[2022-09-02] MEDS: traMADol 50 MG TAB PO SCH ×4 (08:29→21:15)
[2022-09-02] MEDS: PANTOPRAZOLE 40MG TAB (PROTONIX) PO SCH (08:30)
[2022-09-02] MEDS: THIAMINE 100 MG TAB PO SCH (08:30)
[2022-09-02] MEDS: FOLIC ACID 1MG TAB PO SCH (08:31)
[2022-09-02] MEDS: lisinopriL 40MG TAB PO SCH (08:31)
[2022-09-02 14:20] VITALS: BP 143/91
[2022-09-02] MEDS: MIRTAZAPINE 7.5MG PER 1/2 TABLET PO SCH (21:15)
[2022-09-02 23:26] VITALS: BP 119/77
[2022-09-02] MEDS: ACETAMINOPHEN TAB 650MG DOSE (2X325MG) PO PRN (23:58)
[2022-09-03] MEDS: OXAZEPAM 15MG CAP PO SCH ×3 (02:57→14:32)
[2022-09-03] MEDS: HEPARIN SOD (PORCINE) 5000UNITS/ML 1ML VIAL/SYRINGE SC SCH ×2 (06:15→14:31)
[2022-09-03] MEDS: cloNIDine 0.1MG TABLET PO SCH ×4 (06:16→17:28)
[2022-09-03] MEDS: PERCOCET 5MG/325MG TAB PO PRN ×3 (06:21→18:45)
[2022-09-03 06:27] VITALS: BP 127/82
[2022-09-03] MEDS: ISOSORBIDE DIN. (ISORDIL) 20 MG TAB PO SCH (09:00)
[2022-09-03] MEDS: lisinopriL 40MG TAB PO SCH ×2 (09:00→09:02)
[2022-09-03] MEDS: traMADol 50 MG TAB PO SCH ×3 (09:01→17:00)
[2022-09-03] MEDS: FOLIC ACID 1MG TAB PO SCH (09:01)
[2022-09-03] MEDS: MULTIVITAMINS/MINERALS THERAP 1 TAB PO SCH (09:02)
[2022-09-03] MEDS: PANTOPRAZOLE 40MG TAB (PROTONIX) PO SCH (09:03)
[2022-09-03] MEDS: THIAMINE 100 MG TAB PO SCH (09:04)
[2022-09-03 14:00] VITALS: BP 136/72
[2022-09-03 17:28] VITALS: BP 136/85
== END 2022-09-03 20:16 | DRG 775 ==
LOC: EDBD 21:26 → M ED 21:26 → M ED INP 08-24 03:44 → M ICU 08-24 05:30 → M MS5PR 08-29 09:20
PROVIDERS: ADMIT Internal Medicine; ATTEND Internal Medicine Nephrology
PROC: 5A1945Z Respiratory Ventilation, 24-96 Consecutive Hours (ICD-10-PCS; principal; 2022-08-24)
DX: F10.231 Alcohol dependence with withdrawal delirium (principal); U07.1 COVID-19; J96.01 Acute respiratory failure with hypoxia; J69.0 Pneumonitis due to inhalation of food and vomit; G93.41 Metabolic encephalopathy; R56.9 Unspecified convulsions; I16.0 Hypertensive urgency; G43.909 Migraine, unspecified, not intractable, without status migrainosus; M79.7 Fibromyalgia; F41.9 Anxiety disorder, unspecified; N20.0 Calculus of kidney; E87.1 Hypo-osmolality and hyponatremia; E87.6 Hypokalemia; G89.29 Other chronic pain; E28.2 Polycystic ovarian syndrome; Z79.899 Other long term (current) drug therapy; Z88.8 Allergy status to other drugs, medicaments and biological substances

== ENCOUNTER 2022-09-03 18:46 | Inpatient (IN) | payer MEDICARE, OTHER ==
[~2022-09-03] VITALS: Ht 157.5 cm; Wt 67.9 kg
[~2022-09-03 18:46] MED LIST changes: +ALPR0.25 PO; +AMLO10TA PO; +BUPR150T12 PO; +CLON0.2T PO; +FOLI1TAB11 PO; +HYDR-643 PO; +LISI20TA33 PO; +LISI40TA4 PO; +LORA2TA PO; +OMEP-173 PO; +OXAZ10CA3 PO; +PERCOCET PO; +THIA100TA PO; +VITMTA PO; +med rec comment
[2022-09-03] MEDS ORDERED: LORazepam 2 MG TAB PO PRN (19:05)
[2022-09-03] MEDS ORDERED: MOM 30ML SUSPENSION UDC PO PRN (19:05)
[2022-09-03] MEDS ORDERED: FIORICET TAB PO PRN (19:05)
[2022-09-03] MEDS ORDERED: LOPERAMIDE 2 MG CAPLET PO PRN (19:05)
[2022-09-03] MEDS ORDERED: PERCOCET 5MG/325MG TAB PO PRN (19:05)
[2022-09-03] MEDS ORDERED: MAALOX 30 ML SUSP *UDC PO PRN (19:05)
[2022-09-03] MEDS ORDERED: ONDANSETRON 4MG ORAL DISINTEGRATING TAB SL PRN (19:05)
[2022-09-03] MEDS ORDERED: MIRTAZAPINE 7.5MG PER 1/2 TABLET PO SCH (21:00)
[2022-09-03] MEDS: OXAZEPAM 15MG CAP PO SCH (21:12)
[2022-09-03] MEDS: THIAMINE 100 MG TAB PO SCH (21:12)
[2022-09-03] MEDS: traMADol 50 MG TAB PO SCH (21:15)
[2022-09-03 21:26] VITALS: BP 135/95
[2022-09-03 21:27] VITALS: BP 135/95
[2022-09-03] MEDS: ISOSORBIDE DIN. (ISORDIL) 20 MG TAB PO SCH (21:31)
[2022-09-04] MEDS: OXAZEPAM 15MG CAP PO SCH ×4 (02:32→20:29)
[2022-09-04] MEDS: cloNIDine 0.1MG TABLET PO SCH ×4 (06:02→17:05)
[2022-09-04 06:26] VITALS: BP 144/97
[2022-09-04] MEDS ORDERED: lisinopriL 40MG TAB PO SCH (09:00)
[2022-09-04] MEDS: ISOSORBIDE DIN. (ISORDIL) 20 MG TAB PO SCH ×2 (09:00→20:28)
[2022-09-04 09:47] VITALS: BP 128/83
[2022-09-04] MEDS: FOLIC ACID 1MG TAB PO SCH (09:52)
[2022-09-04] MEDS: VENLAFAXINE **XR** 37.5 MG CAPSULE PO SCH (09:52)
[2022-09-04] MEDS: THIAMINE 100 MG TAB PO SCH ×2 (09:52→20:29)
[2022-09-04] MEDS: PANTOPRAZOLE 40MG TAB (PROTONIX) PO SCH (09:52)
[2022-09-04] MEDS: MULTIVITAMINS/MINERALS THERAP 1 TAB PO SCH (09:52)
[2022-09-04] MEDS: traMADol 50 MG TAB PO SCH ×4 (09:53→20:30)
[2022-09-04 18:35] VITALS: BP 124/88
[2022-09-04] MEDS: MIRTAZAPINE 15 MG TAB PO SCH (20:30)
[2022-09-04 22:00] VITALS: BP 153/81
[2022-09-05] MEDS: OXAZEPAM 15MG CAP PO SCH ×3 (02:40→21:18)
[2022-09-05 06:39] VITALS: BP 131/71
[2022-09-05 08:13] VITALS: BP 116/63
[2022-09-05] MEDS: VENLAFAXINE **XR** 37.5 MG CAPSULE PO SCH (08:13)
[2022-09-05] MEDS: THIAMINE 100 MG TAB PO SCH ×2 (08:13→20:11)
[2022-09-05] MEDS: PANTOPRAZOLE 40MG TAB (PROTONIX) PO SCH (08:14)
[2022-09-05] MEDS: MULTIVITAMINS/MINERALS THERAP 1 TAB PO SCH (08:14)
[2022-09-05] MEDS: traMADol 50 MG TAB PO SCH ×4 (08:14→20:12)
[2022-09-05] MEDS: FOLIC ACID 1MG TAB PO SCH (08:14)
[2022-09-05] MEDS ORDERED: cloNIDine 0.1MG TABLET PO SCH (09:00)
[2022-09-05 18:31] VITALS: BP_SYST 123; BP_SYST 138; BP_DIAS 81
[2022-09-05 20:10] VITALS: BP 128/88
[2022-09-05] MEDS: CARVedilol 12.5 MG TAB PO SCH (20:11)
[2022-09-05] MEDS: MIRTAZAPINE 15 MG TAB PO SCH (20:12)
[2022-09-05] MEDS: ACETAMINOPHEN TAB 650MG DOSE (2X325MG) PO PRN (21:18)
[2022-09-06] MEDS: OXAZEPAM 15MG CAP PO SCH ×3 (05:56→21:38)
[2022-09-06 06:10] VITALS: BP 158/98
[2022-09-06] MEDS: ACETAMINOPHEN TAB 650MG DOSE (2X325MG) PO PRN ×2 (06:13→21:38)
[2022-09-06 07:10] VITALS: BP 142/96
[2022-09-06] MEDS: PANTOPRAZOLE 40MG TAB (PROTONIX) PO SCH (08:13)
[2022-09-06] MEDS: CARVedilol 12.5 MG TAB PO SCH ×2 (08:13→20:46)
[2022-09-06] MEDS: VENLAFAXINE **XR** 37.5 MG CAPSULE PO SCH (08:13)
[2022-09-06] MEDS: MULTIVITAMINS/MINERALS THERAP 1 TAB PO SCH (08:13)
[2022-09-06] MEDS: FOLIC ACID 1MG TAB PO SCH (08:13)
[2022-09-06] MEDS: THIAMINE 100 MG TAB PO SCH (08:13)
[2022-09-06] MEDS: traMADol 50 MG TAB PO SCH ×4 (08:14→20:46)
[2022-09-06 18:19] VITALS: BP 144/57
[2022-09-06] MEDS: MIRTAZAPINE 15 MG TAB PO SCH (20:46)
[2022-09-07] MEDS: OXAZEPAM 15MG CAP PO SCH (05:36)
[2022-09-07 06:28] VITALS: BP 159/106
[2022-09-07] MEDS: MULTIVITAMINS/MINERALS THERAP 1 TAB PO SCH (08:15)
[2022-09-07 08:16] VITALS: BP 159/106
[2022-09-07] MEDS: FOLIC ACID 1MG TAB PO SCH (08:16)
[2022-09-07] MEDS: PANTOPRAZOLE 40MG TAB (PROTONIX) PO SCH (08:16)
[2022-09-07] MEDS: VENLAFAXINE **XR** 37.5 MG CAPSULE PO SCH (08:16)
[2022-09-07] MEDS: CARVedilol 12.5 MG TAB PO SCH (08:16)
[2022-09-07] MEDS: traMADol 50 MG TAB PO SCH (08:16)
[2022-09-07] MEDS ORDERED: CARV12.5 PO (09:35)
[2022-09-07] MEDS ORDERED: MIRT-10 PO (09:35)
[2022-09-07] MEDS ORDERED: TRAM50TA2 PO (09:35)
[2022-09-07] MEDS ORDERED: LISI10TA22 PO (09:35)
[2022-09-07] MEDS ORDERED: VENL37.598 PO (09:35)
[2022-09-07] MEDS ORDERED: OXAZEPAM 10MG CAP PO SCH (14:00)
== END 2022-09-07 11:26 | disposition home or self-care (01) | DRG 882 ==
LOC: M PSY 20:23
PROVIDERS: ADMIT Psychiatry & Neurology Psychiatry; ATTEND Psychiatry & Neurology Psychiatry
DX: F43.23 Adjustment disorder with mixed anxiety and depressed mood (principal); U07.1 COVID-19; F10.94 Alcohol use, unspecified with alcohol-induced mood disorder; I10 Essential (primary) hypertension; K21.9 Gastro-esophageal reflux disease without esophagitis; N80.9 Endometriosis, unspecified; M79.7 Fibromyalgia; M19.90 Unspecified osteoarthritis, unspecified site; G43.909 Migraine, unspecified, not intractable, without status migrainosus; Z79.899 Other long term (current) drug therapy; Z88.1 Allergy status to other antibiotic agents; Z88.6 Allergy status to analgesic agent; Z91.51 Personal history of suicidal behavior

== ENCOUNTER → 2023-03-02 | Outpatient (CLI) | payer OTHER ==
[~2023-03-02] MED LIST changes: +LISI10TA22 PO; +MIRT-10 PO; +VENL37.598 PO
[2023-03-02 15:24] LABS: URIC ACID 5.9 MG/DL (3.1-7.8)
[2023-03-02 15:26] LABS: C REACTIVE PROTEIN QUANTITATIV < 0.40 MG/DL (<1.0)
[2023-03-02 15:28] LABS: RHEUMATOID FACTOR QUANT < 3.5 IU/ML (<14)
== END ==
LOC: M LAB 13:52
PROVIDERS: ATTEND Physician Assistant
DX: M79.7 Fibromyalgia (principal); R76.0 Raised antibody titer